=== PATIENT | male | born 1995 | race Caucasian/White ===

== ENCOUNTER 2020-05-30 13:57 | Outpatient (REF) | payer MEDICAID, SELFPAY ==
--- NOTE | ~2020-05-30 | XR_ITS ---
EXAMINATION: LEFT SHOULDER AND CHEST CLINICAL INFORMATION: Left shoulder pain COMPARISON: Chest 09/06/2018 TECHNIQUE: 4 views left shoulder. Chest 2 views. FINDINGS: LEFT SHOULDER: There is normal glenohumeral and AC joint alignment. The joint space is maintained normal. No acute fracture, dislocation or subluxation seen. The soft tissues are normal. CHEST: The lungs are hyperinflated but clear of acute process. The heart size and pulmonary vascularity is normal. No gross bony abnormality seen: XR/XR shoulder LT min 2V IMPRESSION: Unremarkable left shoulder exam. Unremarkable chest exam
--- NOTE | ~2020-05-30 | XR_ITS ---
EXAMINATION: LEFT SHOULDER AND CHEST CLINICAL INFORMATION: Left shoulder pain COMPARISON: Chest 09/06/2018 TECHNIQUE: 4 views left shoulder. Chest 2 views. FINDINGS: LEFT SHOULDER: There is normal glenohumeral and AC joint alignment. The joint space is maintained normal. No acute fracture, dislocation or subluxation seen. The soft tissues are normal. CHEST: The lungs are hyperinflated but clear of acute process. The heart size and pulmonary vascularity is normal. No gross bony abnormality seen: XR/XR chest 2V IMPRESSION: Unremarkable left shoulder exam. Unremarkable chest exam
== END 2020-05-30 13:58 | disposition home or self-care (01) ==
LOC: HO.XRAY 13:57
PROVIDERS: PCP Internal Medicine; Visit Provider Emergency Medicine
DX: I42.9 Cardiomyopathy, unspecified (principal); M25.512 Pain in left shoulder
CPT/HCPCS: 71046; 73030

== ENCOUNTER 2020-06-21 20:56 | Outpatient (REF) | payer MEDICAID, SELFPAY | END 2020-06-21 20:57 | disposition home or self-care (01) | LOC: HO.HOSX 20:56 | PROVIDERS: Visit Provider Physician Assistant | DX: M54.12 Radiculopathy, cervical region (principal); M25.512 Pain in left shoulder; G89.29 Other chronic pain | CPT/HCPCS: 99202 ==

== ENCOUNTER 2020-07-09 14:01 | Outpatient (REF) | payer MEDICAID, SELFPAY ==
--- NOTE | ~2020-07-09 | MR_ITS ---
EXAMINATION: MR CERVICAL SPINE WITHOUT CONTRAST CLINICAL INFORMATION: Left shoulder pain. Neck pain. COMPARISON: No relevant prior imaging. TECHNIQUE: MRI of the cervical spine was obtained using routine sequences without contrast. FINDINGS: There is nonspecific reversal of the cervical lordosis. Alignment is otherwise normal. Vertebral heights are preserved. There is loss of intervertebral disc height and T2 signal intensity at multiple levels related to disc degeneration. The cervicomedullary junction is normal. Limited visualization the posterior fossa reveals no abnormal finding. Occipital condyles and lateral C1 masses are intact. There is degenerative arthrosis of the atlantodental joint. C1-C2 facets are unremarkable. At C2-C3 the annular contour is normal. No canal or neuroforaminal compromise. At C3-C4 there is a slightly bulging disc. No canal or neuroforaminal compromise. At C4-C5 there is a slightly bulging disc. No canal or neuroforaminal compromise. At C5-C6 there is a shallow right central protrusion superimposed upon a bulging disc and there is buckling of the ligamenta flava. Moderate canal stenosis. Uncovertebral joint spurring causes mild right neuroforaminal encroachment. At C6-C7 there is a slightly bulging disc and buckling of ligamenta flava causing mild canal stenosis. No neuroforaminal encroachment. At C7-T1 the annular contour is normal. No canal or neuroforaminal compromise. Visualized soft tissues of the neck are normal. MR/MR cervical spine wo con IMPRESSION: There is multilevel degenerative spondylosis of the cervical spine. A shallow right central protrusion superimposed upon a bulging disc at C5-C6 causes moderate canal stenosis and there is mild canal stenosis at C6-C7. No overt cord compression and no abnormal intramedullary signal changes. Asymmetric uncovertebral joint spurring and facet degenerative change at C5-C6 causes mild right neuroforaminal encroachment.
== END 2020-07-09 14:02 | disposition home or self-care (01) ==
LOC: HO.MRI 14:01
PROVIDERS: Visit Provider Internal Medicine
DX: M25.512 Pain in left shoulder (principal); M54.2 Cervicalgia
CPT/HCPCS: 72141

== ENCOUNTER 2020-08-07 13:35 | Outpatient (REF) | payer MEDICAID, SELFPAY ==
--- NOTE | ~2020-08-07 | XR_ITS ---
EXAMINATION: XR LUMBOSACRAL SPINE WITH OBLIQUES CLINICAL INFORMATION: Back pain with right-sided sciatica. COMPARISON: None TECHNIQUE: AP, both oblique, and lateral views of the lumbar spine. Lateral view of the lumbosacral junction. FINDINGS: The vertebral bodies and posterior elements are normal. The disc spaces are preserved and the vertebral alignment is normal. The paraspinal soft tissues are normal. XR/XR lumbar spine 4V min IMPRESSION: Unremarkable examination.
== END 2020-08-07 13:36 | disposition home or self-care (01) ==
LOC: HO.XRAY 13:35
PROVIDERS: Absent Provider Internal Medicine; PCP Internal Medicine; Visit Provider Emergency Medicine
DX: M54.41 Lumbago with sciatica, right side (principal)
CPT/HCPCS: 72110

== ENCOUNTER 2020-09-04 09:56 | Outpatient (REF) | payer MEDICAID, SELFPAY ==
--- NOTE | ~2020-09-04 | XR_ITS ---
EXAMINATION: XR CHEST CLINICAL INFORMATION: Dysphagia COMPARISON: 05/30/2020 TECHNIQUE: 2 views of the chest were obtained. FINDINGS: No focal consolidation, pulmonary edema, or pleural effusion. Stable cardiomediastinal silhouette. XR/XR chest 2V IMPRESSION: No acute cardiopulmonary findings.
== END 2020-09-04 09:57 | disposition home or self-care (01) ==
LOC: HO.XRAY 09:56
PROVIDERS: PCP Internal Medicine; Referring Provider Internal Medicine; Visit Provider Registered Nurse
DX: R13.10 Dysphagia, unspecified (principal)
CPT/HCPCS: 71046

== ENCOUNTER 2020-12-15 12:32 | Emergency (ER) | payer MEDICAID, SELFPAY ==
[2020-12-15 13:04] VITALS: BP 118/81; PULSE 76; RESP 18; TEMP 36.3; O2SAT 99; BMI 13.8
[2020-12-15 13:44] LABS: MANUAL DIFF FLAG NO
[2020-12-15 13:46] LABS: Basophils Percent Auto 0.8 % (0-2); Eosinophils Absolute Auto 0.1 X10*3/uL (0.0-0.4); Hematocrit 47.6 % (42-52); Hemoglobin 16.1 g/dl (14.0-18.0); Imm Gran Abs Auto 0.01 X10*3/uL (0.00-0.03); Imm Gran Pct Auto 0.3 % (0.0-0.4); Lymphocytes Absolute Auto 1.3 X10*3/uL (1.2-4.9); Lymphocytes Percent Auto 33.4 % (20-40); Mean Corpuscular HGB Conc 33.8 g/dl (31.0-36.0); Mean Corpuscular Hemoglobin 30.9 pg (27.0-33.0); Mean Corpuscular Volume 91.4 fL (80-98); Mean Platelet Volume 12.3 fL (9.4-12.4); Monocytes Absolute Auto 0.3 X10*3/uL (0.1-1.2); Monocytes Percent Auto 7.5 % (2-11); Neutrophils Absolute Auto 2.2 X10*3/uL (2.0-8.3); Platelet Count 157 X10*3/uL (160-400); Red Blood Count 5.21 X10*6/uL (4.60-5.80)
[2020-12-15 14:04] LABS: Anion Gap 12 (12-20); Blood Urea Nitrogen 10 mg/dL (9-16); Carbon Dioxide 29 mmol/L (22-29); Chloride 102 mmol/L (96-108); Creatinine Clr Calc Pharmacy 84.9; Estimated Glomerular Filt Rate > 60; Glucose Random 88 mg/dL (60-115); Sodium 139 mmol/L (135-145)
--- NOTE | 2020-12-15 17:44 | ED_ITS ---
HPI - General Adult General Chief complaint: General Medical Stated complaint: Diff swallowing Time Seen by Provider: 12/15/20 17:23 Source: patient Mode of arrival: ambulatory Limitations: no limitations History of Present Illness HPI narrative: 25-year-old male who presents emergency department for evaluation of difficulty swallowing, abdominal pain and weight loss. The patient states that he was diagnosed with H pylori in October of 2020. He states that he was treated with omeprazole, Bismol and tetracycline with improvement of his symptoms. He states however since December 09 he believes his symptoms are returned. He states he is having intermittent , moderate to severe epigastric pain. He states the pain does radiate into the center of his chest. He states that he feels like there is something stuck in the back of his throat that he is unable to swallow. He states that when he eats food and drinks liquids it feels like it gets stuck in the back of his throat. He states that he does not vomit but sometimes he feels like the food or fluid comes back up the he needs to swallow it again. He states he has had a 20 lb weight loss since September 2020. He denied fever, chills, chest pain, shortness of breath, night sweats, changes bowel movements. The patient states he did see his PCP and has an H pylori test that is pending and he does not know the result of this test yet. Related Data Previous Rx's Medication Instructions Recorded aluminum hydrox-magnesium carb 254 10 ml PO TID #355 ml 12/15/20 mg-237.5 mg/5 mL oral suspension (Gaviscon Extra Strength) omeprazole 20 mg capsule,delayed 20 mg PO BID 30 Days #60 cap 12/15/20 release Allergies Allergy/AdvReac Type Severity Reaction Status Date / Time chlorhexidine [CHLORHEXIDINE] Allergy Intermediate HIVES Verified 12/15/20 13:11 Review of Systems Review of Systems: Yes all other systems are reviewed and are negative [facility] Past Medical History [facility] Narrative: Social history: The patient denies tobacco, alcohol and drug use. Medical History H. pylori infection Heart problem Spinal pain Physical Exam Vital Signs: Vital Signs: Last Vital Signs Temp 97.4 F 12/15/20 13:04 Pulse 76 12/15/20 13:04 Resp 18 12/15/20 13:04 BP 118/81 12/15/20 13:04 Pulse Ox 99 12/15/20 13:04 Body Mass Index 13.8 Const: Other: Very thin male patient, very pleasant and cooperative, does not appear to be in distress HENMT: Head: Yes normal to inspection, Yes normocephalic and Yes atraumatic Ears: external ears normal General nose exam: Normal external nose present Face and sinus: Yes normal facial exam Mouth: Normal oral and palatal mucosa present Throat: Yes posterior oropharynx normal Eyes: General: appearance normal, both eyes and all related structures Pupils: Equal, round and reactive pupils present Neck: Neck: Yes normal visual inspection, Yes no lymphadenopathy, Yes trachea midline and Yes supple Chest: Chest palpation & inspection: normal inspection of the chest and normal palpation of entire chest wall Resp: Effort & Inspection: normal respiratory effort and able to speak in complete sentences Auscultation: clear to auscultation bilaterally Cardio: Rate: regular rate Rhythm: regular rhythm Heart sounds: S1 normal heart sound present, S2 normal heart sound present and no murmurs GI: Inspection: Yes normal to inspection Palpation (GI): Soft to palpation, Tenderness to palpation present (GI) in the epigastrum (Moderate) and no guarding Auscultation: normal bowel sounds : General: Yes no CVA tenderness Back/Spine/Pelvis: Back: no CVA tenderness Skin: General skin exam: no rashes or lesions noted Neuro: Cranial nerves: Yes CN's II-XII intact bilaterally and Yes Equal, round and reactive pupils present Cognition (Neuro): normal cognition Motor exam (neuro): 5/5 motor strength present throughout Extrem: General: Yes normal to inspection Psych: Appearance: grossly normal Speech and movement: Normal speech and movement present Affect: normal affect Attitude: cooperative Thought process: Normal thought process present Thought content: Normal thought content present Course Course Course Narrative: 25-year-old male who presents emergency department for evaluation of epigastric pain, sensation like something stuck in the back of his throat and weight loss. The patient was treated in October of 2020 for H pylori with improvement of the symptoms that he states the symptoms have now returned since December 09, 2020. The patient also has a globus sensation in the back of his throat. Physical examination did reveal midepigastric tenderness otherwise was unremarkable. The patient's laboratory evaluation was unremarkable except for slightly low platelet count of a [id number]. Patient's presentation is consistent with acute gastritis with esophagitis which is giving him a globus sensation. At this time, I do not think that he should be treated with antibiotics unless his H pylori test is positive. The patient will be started on Prilosec 20 mg twice a day for 1 month and Gaviscon 3 times a day for 2 weeks. I did tell the patient needs follow-up with his PCP to get his H pylori test if this is positive then he will need antibiotics. Patient was discharged home with printed and verbal instructions. Medical Decision Making Lab Data Result diagrams: 12/15/20 13:40 12/15/20 13:40 Labs: Lab Results 12/15/20 12/15/20 Range/Units 13:40 13:40 WBC 4.0 L (4.8-10.8) X10*3/uL RBC 5.21 (4.60-5.80) X10*6/uL Hgb 16.1 (14.0-18.0) g/dl Hct 47.6 (42-52) % MCV 91.4 (80-98) fL MCH 30.9 (27.0-33.0) pg MCHC 33.8 (31.0-36.0) g/dl RDW 13.0 (11.0-16.0) % Plt Count 157 L (160-400) X10*3/uL MPV 12.3 (9.4-12.4) fL Immature Gran % (Auto) 0.3 (0.0-0.4) % Neut % (Auto) 56.0 (45-73) % Lymph % (Auto) 33.4 (20-40) % [place] % (Auto) 7.5 (2-11) % Eos % (Auto) 2.0 (0-4) % Baso % (Auto) 0.8 (0-2) % Lymph # (Auto) 1.3 (1.2-4.9) X10*3/uL [place] # (Auto) 0.3 (0.1-1.2) X10*3/uL Eos # (Auto) 0.1 (0.0-0.4) X10*3/uL Baso # (Auto) 0.0 (0.0-0.2) X10*3/uL Abs Immat Gran (auto) 0.01 (0.00-0.03) X10*3/uL Absolute Neuts (auto) 2.2 (2.0-8.3) X10*3/uL Absolute Nucleated RBC 0.000 (0.0-0.012) X10*3/uL Nucleated RBC % (auto) 0.0 (0.0-0.2) /100WBC Sodium 139 (135-145) mmol/L Potassium 4.0 (3.3-5.1) mmol/L Chloride 102 (96-108) mmol/L Carbon Dioxide 29 (22-29) mmol/L Anion Gap 12 (12-20) BUN 10 (9-16) mg/dL Creatinine 0.87 (0.5-1.4) mg/dL Estim Creat Clear Calc 84.9 Estimated GFR > 60 Random Glucose 88 (60-115) mg/dL Calcium 10.0 (8.4-10.2) mg/dL Discharge Plan Discharge Clinical Impression: Gastritis, Esophagitis, Globus sensation Patient Disposition: Home, Self-Care Instructions: Gastritis (ED), Esophagitis (ED) Additional Instructions: You symptoms are caused by too much acid in your stomach (gastritis) and acid that is going on to your esophagus (esophagitis). The inflammation of your esophagus is making it difficult for you to swallowing causing you to choke The inflammation in your esophagus gives you that sensation that something is stuck back there that you can swallow. Take omeprazole (Prilosec) 20 mg pills, 1 pill twice a day for 1 month Take Gaviscon extra-strength antacid, 10 mL 3 times a day for 2 weeks. It is important that you get your H pylori result from your primary care doctor. If this is positive then you need also to be on antibiotics for 2 weeks. Follow-up with your doctor in 2 days. Please return to the emergency department if your symptoms get worse or if you develop any symptoms that are concerning to you. Prescriptions: New Gaviscon Extra Strength 254-237.5 mg/5 mL suspension 10 ml PO TID Qty: 355 RF: 0 omeprazole 20 mg capsule,delayed release(DR/EC) 20 mg PO BID 30 Days Qty: 60 RF: 0
[2020-12-15 18:00] VITALS: BP 116/78; PULSE 72; RESP 18; TEMP 36.7; O2SAT 99
--- NOTE | 2020-12-15 18:31 | PC.NURSE ---
interpretor called to discharge patient
== END 2020-12-15 18:48 | disposition home or self-care (01) ==
LOC: HO.ED 18:17
PROVIDERS: Emergency Provider Emergency Medicine Emergency Medical Services; PCP Internal Medicine
DX: K20.90 Esophagitis, unspecified without bleeding (principal); K29.70 Gastritis, unspecified, without bleeding; F45.8 Other somatoform disorders; Z86.19 Personal history of other infectious and parasitic diseases
CPT/HCPCS: 36415; 80048; 85025; 99283; 99284

== ENCOUNTER 2021-01-03 14:08 | Outpatient (REF) | payer MEDICAID, SELFPAY ==
--- NOTE | ~2021-01-03 | XR_ITS ---
EXAMINATION: XR CERVICAL SPINE CLINICAL INFORMATION: Spondylosis/radiculopathy. COMPARISON: 07/09/2020 TECHNIQUE: 6 views of the cervical spine, inclusive of flexion and extension views, were obtained. FINDINGS: Vertebral body height and alignment is maintained on the neutral view. Disc spaces are maintained. On the flexion view, there is flexion seen involving the upper cervical vertebral bodies, with limited mobility at the lower cervical spine. Normal alignment on the extension view. No evidence of instability. No bony neuroforaminal narrowing. The atlantoaxial joint is well aligned. The dens appears intact. The prevertebral soft tissues are unremarkable. The lung apices are clear. XR/XR cervical spine min 6V IMPRESSION: Suggestion of limited mobility of the lower cervical spine.
== END 2021-01-03 14:09 | disposition home or self-care (01) ==
LOC: HO.XRAY 14:08
PROVIDERS: PCP Internal Medicine; Visit Provider Physician Assistant Surgical
DX: M47.812 Spondylosis without myelopathy or radiculopathy, cervical region (principal)
CPT/HCPCS: 72052

== ENCOUNTER 2021-01-24 10:54 | Emergency (ER) | payer MEDICAID, SELFPAY ==
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
[2021-01-24 11:01] VITALS: PULSE 100
[2021-01-24 11:07] VITALS: BP 141/94; PULSE 118; RESP 18; TEMP 36.7; O2SAT 100; BMI 13.6
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
[2021-01-24 12:28] LABS: Influenza A PCR NEGATIVE (Negative); Influenza B PCR NEGATIVE (Negative); Resp Syncy Virus RNA Qual PCR NEGATIVE (Negative); SARS COV2 PCR INHOUSE NEGATIVE (Negative)
[2021-01-24 13:16] LABS: Strep A Nucleic Acid Negative (Negative)
[2021-01-24 13:17] LABS: IDNOW Serial# 08D9AD1C
[2021-01-24 13:26] VITALS: PULSE 90; RESP 18; O2SAT 99
== END 2021-01-24 13:32 | disposition home or self-care (01) ==
PROVIDERS: Physician Assistant; Emergency Provider Emergency Medicine; PCP Internal Medicine
DX: S96.911A Strain of unspecified muscle and tendon at ankle and foot level, right foot, initial encounter (principal); J02.9 Acute pharyngitis, unspecified; J06.9 Acute upper respiratory infection, unspecified; Z20.822 Contact with and (suspected) exposure to COVID-19; V03.00XA Pedestrian on foot injured in collision with car, pick-up truck or van in nontraffic accident, initial encounter; Y93.89 Activity, other specified; Y92.414 Local residential or business street as the place of occurrence of the external cause; Y99.9 Unspecified external cause status
CPT/HCPCS: 0241U; 36415; 73610; 73630; 87651; 99283

== ENCOUNTER 2021-02-03 12:16 | Outpatient (REF) | payer MEDICAID, SELFPAY ==
--- NOTE | ~2021-02-03 | US_ITS ---
EXAMINATION: US ABDOMEN COMPLETE CLINICAL INFORMATION: Upper abdominal pain, rule out gallstones. COMPARISON: None TECHNIQUE: Real-time imaging of the abdominal viscera. FINDINGS: PANCREAS: Normal. ABDOMINAL AORTA: The proximal, mid, and distal segments are normal in caliber. INFERIOR VENA CAVA: Visualized portions are normal. LIVER: Normal. The liver is normal in size. The liver contour is normal. Parenchymal echogenicity is normal. No focal hepatic lesion. There is no intrahepatic biliary duct dilatation seen. GALLBLADDER: The gallbladder is physiologically distended without evidence of stones, sludge, wall thickening or pericholecystic fluid. There are 2 small 1 to 2 mm echogenic densities adjacent to the gallbladder wall questionable for small gallbladder wall polyps. COMMON BILE DUCT: Normal in caliber measuring 0.29 cm in diameter. RIGHT KIDNEY: Normal. No hydronephrosis. No renal calculi or focal parenchymal lesions. The kidney measures 10.1 cm in maximum dimension. LEFT KIDNEY: Normal. No hydronephrosis. No renal calculi or focal parenchymal lesions. The kidney measures 9.7 cm in maximum dimension. SPLEEN: Normal. The spleen measures 9.6 cm in maximum dimension. FREE FLUID: None. US/US abdomen complete IMPRESSION: No definite gallstone seen. Question 2 small gallbladder wall polyps.
== END 2021-02-03 12:17 | disposition home or self-care (01) ==
LOC: HO.US 12:16
PROVIDERS: PCP Internal Medicine; Visit Provider Emergency Medicine
DX: R10.10 Upper abdominal pain, unspecified (principal)
CPT/HCPCS: 76700

== ENCOUNTER 2021-03-11 10:24 | Outpatient (REF) | payer MEDICAID, SELFPAY ==
[2021-03-12 08:31] LABS: H Pylori Breath Test Negative (Negative)
== END 2021-03-11 10:25 | disposition home or self-care (01) ==
LOC: HO.LNP 10:24
PROVIDERS: PCP Internal Medicine; Referring Provider Internal Medicine; Visit Provider Nurse Practitioner Family
DX: K21.9 Gastro-esophageal reflux disease without esophagitis (principal); R13.19 Other dysphagia; R14.0 Abdominal distension (gaseous)
CPT/HCPCS: 83013; 99202

== ENCOUNTER 2021-04-30 11:00 | Outpatient (RCR) | payer MEDICAID, SELFPAY ==
[2021-02-05 10:00] VITALS: BP 106/71
== END 2021-05-05 12:31 | disposition home or self-care (01) ==
LOC: HO.PT 11:00
PROVIDERS: PCP Internal Medicine; Visit Provider Physician Assistant Surgical
DX: M47.812 Spondylosis without myelopathy or radiculopathy, cervical region (principal)
CPT/HCPCS: 97110; 97140; 97161; 97530

== ENCOUNTER → 2021-10-16 10:45 | Outpatient (BNVA) | payer MEDICAID, SELFPAY | PROVIDERS: PCP Internal Medicine; Visit Provider Dietitian, Registered | DX: R63.6 Underweight (principal); Z71.3 Dietary counseling and surveillance | CPT/HCPCS: 97802 ==

== ENCOUNTER 2021-11-06 10:50 | Day surgery (SDC) | payer MEDICAID, SELFPAY ==
--- NOTE | 2021-11-05 12:33 | P.CONAN_ITS ---
Documented by User: Nanci Weiss NP 11/05/21 12:35 HPI - Anesthesia Eval Consult details Narrative: 26yo M for Upper Endoscopy Cardiac cleared (Marfans with cardiomyopathy) [facility] Active Problems Active Problems: All Active Problems (Updated 10/22/21 @ 11:[address], LDN) Severely underweight adult (Acute) Shoulder pain (Acute) Cervical radiculopathy (Acute) Past Medical History Medical History Cardiomyopathy CHF (congestive heart failure) Difficulty swallowing H. pylori infection History of anxiety Marfan syndrome Mitral valve disease Palpitations Spinal pain Social History Social History (System 12/27/20 @ 17:25 by Jordyn Conklin) Alcohol intake: never Patient Tobacco Use Status: Never used Tobacco Advance Directives: No Advance Directives Information Provided: Yes Current occupational status: disabled Current occupation: right handed Meds Allergies Allergy/AdvReac Type Severity Reaction Status Date / Time chlorhexidine [CHLORHEXIDINE] Allergy Intermediate HIVES Verified 11/06/21 11:44 Home Medications Medication Instructions Recorded Confirmed Last Taken Type sacubitril 24 mg-valsartan 26 mg 1 tab PO BID 06/21/20 10/31/21 Unknown History tablet (Entresto) cholecalciferol (vitamin D3) 50 50 mcg PO DAILY 03/11/21 10/31/21 Unknown History mcg (2,000 unit) capsule fluticasone propionate 50 1 - 2 spray intranasal DAILY PRN 07/25/21 10/31/21 Unknown History mcg/actuation nasal Nasal Congestion spray,suspension Exam Exam Date and Time: November 05, 2021 1233 Narrative Narrative: ECHO 07/2021 1. Mild global hypokinesis of LV contractility 2. Overall LV systolic mildly impaired with EF 45-50% 3. No change compared to 07/2020 EKG SR per 03/2021 cardiology visit Assessment and Plan Assessment Anesthesia Assessment: Chart Reviewed Documented by User: Edgardo Aaron MD 11/06/21 11:44 [facility] Past Medical History Medical History Cardiomyopathy CHF (congestive heart failure) Difficulty swallowing H. pylori infection History of anxiety Marfan syndrome Mitral valve disease Palpitations Spinal pain Family History Family history of problems with anesthesia: No Surgical History History of Problems with Anesthesia: No Social History Social History (System 12/27/20 @ 17:25 by Jordyn Conklin) Alcohol intake: never Patient Tobacco Use Status: Never used Tobacco Advance Directives: No Advance Directives Information Provided: Yes Current occupational status: disabled Current occupation: right handed Meds Allergies Allergy/AdvReac Type Severity Reaction Status Date / Time chlorhexidine [CHLORHEXIDINE] Allergy Intermediate HIVES Verified 11/06/21 11:44 Home Medications Medication Instructions Recorded Confirmed Last Taken Type sacubitril 24 mg-valsartan 26 mg 1 tab PO BID 06/21/20 10/31/21 Unknown History tablet (Entresto) cholecalciferol (vitamin D3) 50 50 mcg PO DAILY 03/11/21 10/31/21 Unknown History mcg (2,000 unit) capsule fluticasone propionate 50 1 - 2 spray intranasal DAILY PRN 07/25/21 10/31/21 Unknown History mcg/actuation nasal Nasal Congestion spray,suspension Exam Airway Mallampati Class: I TM Dist: >3cm Neck ROM: Full Loose/Missing/Broken Teeth: No Heart: rrr Lungs: clear Assessment and Plan Final Anesthetic Review Family History of Problems with Anesthesia: No History of Problems with Anesthesia: No NPO: Yes ASA Class: III Final Preanesthetic Review: No Changes in Pt Med Stat, Meds/Allgs Chart Reviewed, Consent Obtained/Reviewed and Anes Risks/Benef Reviewed Patient Risk: Intermediate Procedure Risk: Low Anesthetic Plan Anesthetic Plan: MAC: Disposition: Standard PACU
--- NOTE | 2021-11-06 11:32 | MHC.SHP ---
Pre-Procedural Eval Section A Date of Service: 11/06/21 Section B Chief Complaint: reflux Relevant Family History (Specify if Yes): No Relevant Social History: None Present Medications: see Short Stay Collaborative assessment Medical History: Significant History (Cardiomyopathy H. pylori infection Heart problem Heart problem Spinal pain) History of Previous Operations: No relevant previous surgery Allergies: Allergies Allergy/AdvReac Type Severity Reaction Status Date / Time chlorhexidine [CHLORHEXIDINE] Allergy Intermediate HIVES Verified 07/25/21 11:29 Review of Systems Sugical H&P ROS: Negative: Constitution, Cardiovascular, Respiratory, Neurological, Psychiatric, Hem-Onc, Allergic/Immunologic, Gastrointestinal, Genitourinary, Musculoskeletal, Integumentary, Endocrine and Eyes/Ears/Nose/Throat Exam Surgical H&P Exam: Normal: HEENT, Normal: Heart, Normal: Lungs, Normal: Extremities, Normal: Abdomen, Normal: Skin and Normal: Neurological Plan Diagnosis/Plan: Unchanged I have reviewed the history and physical and performed a pertinent physical examination on my patient. No changes have occurred unless specified.
[2021-11-06 11:38] VITALS: BMI 13.9
[2021-11-06] MEDS: Lactated Ringers 1,000 ML 50 ML IVCONT (11:43)
[2021-11-06 11:45] VITALS: BP 112/78; PULSE 81; RESP 18; TEMP 36.4; O2SAT 99
--- NOTE | 2021-11-06 11:47 | PC.NURSE ---
IV attempt and insertion by Eric Palencia RN
--- NOTE | 2021-11-06 12:12 | W.PM.OPN ---
Operative Note Operative Note Date of Service: 11/06/21 Narrative: Procedure Description: EGD Indication: reflux, dysphagia, regurgitation Anesthesia: MAC FLEXIBLE TRANSORAL UPPER GASTROINTESTINAL ENDOSCOPY UPPER ENDOSCOPY Consent: Indications for the procedure and potential complications of bleeding, perforation, reaction to medications and missed diagnosis were discussed with the patient and informed consent was obtained. Instrument: Olympus GIF H 190 J mid size upper endoscope Monitoring: Vital signs and clinical assessment, continuous EKG monitoring, Pulse oximetry, Carbon Dioxide monitoring and blood pressure monitoring were done throughout the procedure. Procedure: The patient was placed in the left lateral decubitis position and pre-procedure medications were administered and a bite block was placed. The endoscope was inserted into the mouth and advanced under direct vision to the third part of duodenum. A careful inspection was made as the upper endoscope was withdrawn including a retroflexed examination of the proximal stomach; Findings and interventions are described below. Findings: Larynx:normal Esophagus: GE junction at 41 cm, diaphragm hiatus at 41 cm, patulous LES with midl esophagitis and possible short segment barretts, bx taken from GEJ and then distal and proximal esophagus in separate jars. There were tertiary contractions. Stomach: Patchy gastric erythema. Biopsies were obtained. Grade 2 flap valve on retroflexed examination of the cardia. Biopsies also taken for h pylori culture and senstivity Duodenum: Normal bulb and descending duodenum, bx taken, the duodenal bulb appeared to be externally compressed. Intervention: Biopsies as noted above Impression/Findings: esophagitis patulous LES possible barretts possible SMA syndrome abnormal esophageal motility PLAN: high dose PPI mesenteric duplex to r/o SMA syndrome reflux precautions might need esophageal manometry
[2021-11-06 12:22] VITALS: BP 92/55; PULSE 77; RESP 16; TEMP 36.6; O2SAT 100
[2021-11-06 12:35] VITALS: BP 97/53; PULSE 72; RESP 16; O2SAT 100
[2021-11-06 12:50] VITALS: BP 104/61; PULSE 66; RESP 16; O2SAT 100
[2021-11-06 13:05] VITALS: BP 103/56; PULSE 67; RESP 16; O2SAT 100
[2021-11-06 13:20] VITALS: BP 109/58; PULSE 67; RESP 16; TEMP 36.8; O2SAT 100
== END 2021-11-06 14:14 ==
LOC: HO.SSS 10:51
PROVIDERS: PCP Internal Medicine; Visit Provider Internal Medicine Gastroenterology
PROC: 0DJ08ZZ Inspection of Upper Intestinal Tract, Via Natural or Artificial Opening Endoscopic (ICD-10-PCS; CPT 43235; principal; 2021-11-06 12:40)
DX: K21.9 Gastro-esophageal reflux disease without esophagitis (principal); R13.19 Other dysphagia; R14.0 Abdominal distension (gaseous); K20.80 Other esophagitis without bleeding; K22.4 Dyskinesia of esophagus; K44.9 Diaphragmatic hernia without obstruction or gangrene; I42.9 Cardiomyopathy, unspecified; Z79.899 Other long term (current) drug therapy; Z88.8 Allergy status to other drugs, medicaments and biological substances
CPT/HCPCS: 43239; 36415; 87081; 88305; 88342

== ENCOUNTER → 2021-11-18 09:44 | Outpatient (BNVA) | payer MEDICAID, SELFPAY | PROVIDERS: PCP Internal Medicine; Visit Provider Dietitian, Registered | DX: R63.6 Underweight (principal); Z68.1 Body mass index [BMI] 19.9 or less, adult; Z71.3 Dietary counseling and surveillance | CPT/HCPCS: 97803 ==

== ENCOUNTER → 2021-11-19 13:44 | Outpatient (BNVA) | payer MEDICAID, SELFPAY | PROVIDERS: PCP Internal Medicine; Referring Provider Internal Medicine; Visit Provider Nurse Practitioner Family | DX: K21.00 Gastro-esophageal reflux disease with esophagitis, without bleeding (principal); R10.13 Epigastric pain; K58.0 Irritable bowel syndrome with diarrhea; Z79.899 Other long term (current) drug therapy | CPT/HCPCS: 99212 ==

== ENCOUNTER 2021-12-12 12:40 | Outpatient (REF) | payer MEDICAID, SELFPAY | END 2021-12-12 12:41 | disposition home or self-care (01) | LOC: HO.LAB 12:40 | PROVIDERS: PCP Internal Medicine; Visit Provider Nurse Practitioner Family | DX: K58.9 Irritable bowel syndrome, unspecified (principal) | CPT/HCPCS: 36415; 86003 ==

== ENCOUNTER 2021-12-18 13:49 | Outpatient (REF) | payer MEDICAID, SELFPAY ==
[2021-12-26 16:46] LABS: Pancreatic Elastase-1 >500 mcg/g
== END 2021-12-18 13:50 | disposition home or self-care (01) ==
LOC: HO.LNP 13:49
PROVIDERS: Visit Provider Nurse Practitioner Family
DX: R10.9 Unspecified abdominal pain (principal)
CPT/HCPCS: 82656

== ENCOUNTER → 2021-12-24 13:41 | Outpatient (BNVA) | payer MEDICAID, SELFPAY | PROVIDERS: PCP Internal Medicine; Visit Provider Nurse Practitioner Family | DX: R10.13 Epigastric pain (principal); K21.00 Gastro-esophageal reflux disease with esophagitis, without bleeding | CPT/HCPCS: 99212 ==

== ENCOUNTER 2022-01-16 12:45 | Outpatient (REF) | payer MEDICAID, SELFPAY ==
--- NOTE | ~2022-01-16 | US_ITS ---
ULTRASOUND ARTERIAL DUPLEX OF THE SUPERIOR MESENTERIC ARTERY Clinical indication: Chronic vascular disorder of the intestine Technique: Multiple dupont-scale and color Doppler images of the abdominal aorta and mesenteric vessels obtained. Comparison: None. FINDINGS: Abdominal aorta is normal caliber and widely patent without significant atherosclerotic plaque. Normal color flow and arterial duplex waveforms seen throughout the abdominal aorta. Normal velocities is seen in the proximal and distal portions. Celiac artery is evaluated on inspiration in the supine and erect positioning. Patent color flow with normal arterial waveforms and velocities seen in the celiac artery. On supine positioning velocity measures 145 cm/s. On erect positioning velocity measures 116 cm/s. Superior mesenteric artery is patent with normal color flow Doppler and normal arterial waveforms and velocities. Proximal segment measures 140 cm/s, mid segment measures 145 cm/s. The distal segment measures 108 cm/s. There is an acute superior mesenteric artery to aortic ankle measuring 24 degrees, normal is greater than 25 degrees. This is causing some compression of the left renal vein and could also be causing compression of the duodenum. The left renal vein is patent on color flow and duplex Doppler. Inferior mesenteric artery, splenic artery and hepatic arteries are patent with normal waveforms and velocities US/US SMA IMPRESSION: Patent arterial flow within the mesenteric vessels without significant stenosis. Note is made of an acute angulation between the superior mesenteric artery and aorta measuring 24 degrees, normal is greater than 25 degrees. There is compression seen of the left renal vein. This could also be causing compression of the duodenum consistent with SMA syndrome
== END 2022-01-16 12:46 | disposition home or self-care (01) ==
LOC: HO.US 12:45
PROVIDERS: Visit Provider Internal Medicine Gastroenterology
DX: K55.1 Chronic vascular disorders of intestine (principal)
CPT/HCPCS: 93976

== ENCOUNTER 2022-01-22 09:39 | Emergency (ER) | payer MEDICAID, SELFPAY ==
[2022-01-22 09:59] VITALS: BP 111/81; PULSE 85; RESP 14; TEMP 36.9; O2SAT 98; BMI 19.0
[2022-01-22 10:05] VITALS: BP 115/74; PULSE 73; RESP 17; TEMP 36.5
[2022-01-22 10:39] VITALS: BP 103/75; PULSE 119
--- NOTE | 2022-01-22 10:39 | ECG_ITS ---
Test Reason : near syncope Blood Pressure : / mmHG Vent. Rate : 077 BPM Atrial Rate : 077 BPM P-R Int : 164 ms QRS Dur : 092 ms QT Int : 356 ms P-R-T Axes : 079 079 072 degrees QTc Int : 402 ms Normal sinus rhythm RSR' or QR pattern in V1 suggests right ventricular conduction delay Nonspecific T wave abnormality Abnormal ECG Nonspecific T wave abnormality is new Referred By: Imelda Mckenzie Electronically Signed By:HOMERO GARZA MD
--- NOTE | 2022-01-22 10:40 | ED_ITS ---
HPI - Syncope General Chief Complaint: Syncope Stated Complaint: from PT. outpatient response Time Seen by Provider: 01/22/22 10:38 Source: patient Mode of arrival: ambulatory Limitations: no limitations History of Present Illness HPI narrative: 27-year-old male with history of cardiomyopathy, EF 45% (unknow etiology per patient) with history of arthritis in his neck and shoulders was been going to physical therapy for this for 1 year presents to the ER for evaluation of a possible syncopal event while at physical therapy today. Patient was sitting up getting a therapeutic ultrasound of his trapezius muscles when he started to feel a buzzing in his ears and his vision became tunnel. He felt lightheaded an d ?blacked out. ? he thinks he lost consciousness because when he woke up he was lying down with people around him. No fall or injury. Patient reports similar episodes but not as bad in the past. He denies any history of syncope in the past. He denies any shortness of breath or chest pain. He did not eat breakfast this morning or have any fluids. He feels near baseline but still not 100%. MD complaint: almost passed out Onset (ago): minute(s) Prodromal symptoms: vision changes and lightheaded Witnessed: No Context: at rest Injuries sustained associated with event: none Current symptoms: back to baseline Treatments prior to arrival: none Related Data Home Medications Medication Instructions Recorded Confirmed sacubitril 24 mg-valsartan 26 mg 1 tab PO BID 06/21/20 10/31/21 tablet (Entresto) cholecalciferol (vitamin D3) 50 50 mcg PO DAILY 03/11/21 10/31/21 mcg (2,000 unit) capsule fluticasone propionate 50 1 - 2 spray intranasal DAILY PRN 07/25/21 10/31/21 mcg/actuation nasal Nasal Congestion spray,suspension Previous Rx's Medication Instructions Recorded food supplemt, lactose-reduced See Rx Instructions .Route 12/24/21 (Ensure High Protein oral liquid) .COMPLEX #5,688 mL pantoprazole 40 mg tablet,delayed 40 mg PO DAILY #90 tabs 12/24/21 release sucralfate 1 gram tablet 1 g PO BID #60 tabs 12/24/21 Allergies Allergy/AdvReac Type Severity Reaction Status Date / Time chlorhexidine [CHLORHEXIDINE] Allergy Intermediate HIVES Verified 12/24/21 13:49 Review of Systems Review of Systems: Constitutional: No Fever, No Chills ENT/Mouth: No sore throat, No Rhinorrhea Eyes: No Eye Pain, No Swelling, No Redness, +tunnel vision Cardiovascular: No Chest Pain, No SOB, No Orthopnea, No Edema Respiratory: No Cough, No Sputum, No Wheezing, No dyspnea Gastrointestinal: No Nausea, No Vomiting, No Diarrhea, No abdominal Pain Musculoskeletal: No joint pain, No Myalgias Skin: No Skin Lesions, No rash Neuro:+ Weakness, No Numbness, + Dizziness, No Headache Psych: No Anxiety/Panic, No Depression Heme/Lymph: No Bruising, No Lymphadenopathy PMFSH Past Medical History Medical History Cardiomyopathy CHF (congestive heart failure) Difficulty swallowing H. pylori infection History of anxiety Mitral valve disease Palpitations Spinal pain Social History Social History Alcohol intake: never Patient Tobacco Use Status: Never used Tobacco Advance Directives: No Advance Directives Information Provided: No Current occupational status: disabled Current occupation: right handed Physical Exam Vital Signs: Vital Signs: Last Vital Signs Temp 97.7 F 01/22/22 10:05 Pulse 88 01/22/22 11:07 Resp 17 01/22/22 10:05 BP 108/75 01/22/22 11:07 Pulse Ox 98 01/22/22 12:42 O2 Del Method 01/22/22 12:42 BMI result Body Mass Index 19.0 Appearance: Alert. Oriented X3. No acute distress. Pale. Eyes: Pupils equal, round and reactive to light. ENT: Pharynx normal. Neck: Normal inspection. Neck supple. CVS: Normal heart rate and rhythm. Pulses normal. Respiratory: No respiratory distress. Breath sounds normal. Abdomen: thin, flat, Soft and nontender. +BS x4 Skin: Skin warm and dry. Normal skin color. Normal skin turgor. No rashes. Extremities: No lower extremity edema. Neuro: Oriented X 3. No motor deficit. No sensory deficit. CN II-XII intact. Normal speech and cognition. Nonfocal. Course Course Course Narrative: 27-year-old male with history of cardiomyopathy, chronic arthritis presents to the ER for evaluation of a near syncopal/syncopal event today while at physical therapy. He had prodrome of lightheadedness and tunnel vision as well as ringing in the ears. Possibly vasovagal or due to orthostatic hypotension. Will get baseline lab workup, EKG, orthostatics vital signs. Will give p.o. fluids and IV fluids as well. Will reassess. Reevaluation(s) Reevaluation #1: Orthostatic vital signs are negative. Cbc was normal. Reevaluation #2: Labs are unremarkable. Patient is feeling much better. He is up ambulating to the bathroom. Comfortable with discharge home with plan to follow-up with his outpatient service center assistant and his PCP. Patient agrees with plan. Return precautions were discussed. Stable for DC. Medications Administered Discontinued Medications Generic Name Dose Route Start Last Admin Trade Name Freq PRN Reason Stop Dose Admin Sodium Chloride 1,000 mls @ 999 mls/hr 01/22/22 10:45 01/22/22 12:42 Ns IVCONT 01/22/22 11:45 Infused .Q1H1M ANA MARÍA Infusion MDM - Syncope Medical Records Attestation: I reviewed the patient's medical records. Lab Data Attestation: I reviewed the patient's lab results. Result diagrams: 01/22/22 11:26 01/22/22 12:37 Labs: Lab Results 01/22/22 01/22/22 Range/Units 11:26 12:37 WBC 4.9 (4.8-10.8) X10*3/uL RBC 5.09 (4.60-5.80) X10*6/uL Hgb 15.4 (14.0-18.0) g/dl Hct 46.4 (42.0-52.0) % MCV 91.2 (80.0-98.0) fL MCH 30.3 (27.0-33.0) pg MCHC 33.2 (31.0-36.0) g/dl RDW 12.8 (11.0-16.0) % Plt Count 165 (160-400) X10*3/uL MPV 12.7 H (9.4-12.4) fL Immature Gran % (Auto) 0.2 (0.0-0.4) % Neut % (Auto) 71.7 (45-73) % Lymph % (Auto) 19.4 L (20-40) % Hamilton % (Auto) 7.1 (2-11) % Eos % (Auto) 0.8 (0-4) % Baso % (Auto) 0.8 (0-2) % Lymph # (Auto) 1.0 L (1.2-4.9) X10*3/uL Hamilton # (Auto) 0.4 (0.1-1.2) X10*3/uL Eos # (Auto) 0.0 (0.0-0.4) X10*3/uL Baso # (Auto) 0.0 (0.0-0.2) X10*3/uL Abs Immat Gran (auto) 0.01 (0.00-0.03) X10*3/uL Absolute Neuts (auto) 3.5 (2.0-8.3) x10*3/uL Absolute Nucleated RBC 0.000 (0.0-0.012) X10*3/uL Nucleated RBC % (auto) 0.0 (0.0-0.2) /100WBC Sodium 138 (135-145) mmol/L Potassium 4.1 (3.3-5.1) mmol/L Chloride 105 (96-108) mmol/L Carbon Dioxide 28 (22-29) mmol/L Anion Gap 9 L (12-20) BUN 19 H (9-16) mg/dL Creatinine 0.92 (0.5-1.4) mg/dL Estim Creat Clear Calc 108.3 Estimated GFR > 60 Random Glucose 127 H (60-115) mg/dL Calcium 8.5 D (8.4-10.2) mg/dL Magnesium 1.9 (1.6-2.6) mg/dL Total Bilirubin 0.5 (0.0-1.0) mg/dL Direct Bilirubin 0.2 (0.0-0.5) mg/dL AST 15 (5-37) U/L ALT 17 (0-40) U/L Alkaline Phosphatase 42 (39-117) U/L Total Protein 6.5 (6.5-8.0) g/dL Albumin 3.9 (3.5-5.0) g/dL ECG Data Attestation: I personally reviewed and interpreted this ECG as follows: ECG interpretation date: 01/22/22 ECG interpretation time: 12:45 Prior ECG tracings: available for review Interpretation: Normal sinus rhythm, ventricular rate 77 beats per minute, normal CO interval, normal QTC, no ST segment elevations or depressions. Peak T-waves in V3 and V4. No significant change from prior Discharge Plan Discharge Clinical Impression: Vasovagal syncope Patient Disposition: Home, Self-Care Instructions: Syncope (ED) Additional Instructions: Your lab workup today was unremarkable. Your EKG was unremarkable. Recommend following up with your service center assistant and let them know the events of today. It is important that you eat and drink before you go to your physical therapy sessions. If you develop new or worsening symptoms call 911 or come back to the ER for further evaluation. Prescriptions: No Action fluticasone propionate 50 mcg/actuation spray,suspension 1 - 2 spray intranasal DAILY PRN (Reason: Nasal Congestion) Entresto 24-26 mg tablet 1 tab PO BID cholecalciferol (vitamin D3) 50 mcg (2,000 unit) capsule 50 mcg PO DAILY pantoprazole 40 mg tablet,delayed release (DR/EC) 40 mg PO DAILY Qty: 90 2RF Rx Instructions: take one tablet half an hour before breakfast sucralfate 1 gram tablet 1 g PO BID Qty: 60 4RF Ensure High Protein Liquid See Rx Instructions .ROUTE .COMPLEX Qty: 5688 3RF Rx Instructions: One bottle daily Referrals: Iain Hernandez MD [Primary Care Provider] - (Syncope)
[2022-01-22 11:07] VITALS: BP 104/64; BP 108/75; PULSE 85; PULSE 88
[2022-01-22] MEDS: 0.9 % Sodium Chloride 1,000 ML 999 ML IVCONT (11:28)
[2022-01-22 11:29] LABS: MANUAL DIFF FLAG NO
[2022-01-22 11:48] LABS: Basophils Percent Auto 0.8 % (0-2); Eosinophils Percent Auto 0.8 % (0-4); Hematocrit 46.4 % (42.0-52.0); Hemoglobin 15.4 g/dl (14.0-18.0); Imm Gran Abs Auto 0.01 X10*3/uL (0.00-0.03); Imm Gran Pct Auto 0.2 % (0.0-0.4); Lymphocytes Percent Auto 19.4 % (20-40); Mean Corpuscular HGB Conc 33.2 g/dl (31.0-36.0); Mean Corpuscular Hemoglobin 30.3 pg (27.0-33.0); Mean Corpuscular Volume 91.2 fL (80.0-98.0); Mean Platelet Volume 12.7 fL (9.4-12.4); Monocytes Absolute Auto 0.4 X10*3/uL (0.1-1.2); Monocytes Percent Auto 7.1 % (2-11); Neutrophils Absolute Auto 3.5 x10*3/uL (2.0-8.3); Neutrophils Percent Auto 71.7 % (45-73); Platelet Count 165 X10*3/uL (160-400); Red Blood Count 5.09 X10*6/uL (4.60-5.80); Red Cell Distribution Width 12.8 % (11.0-16.0); White Blood Count 4.9 X10*3/uL (4.8-10.8)
[2022-01-22 12:42] VITALS: O2SAT 98
--- NOTE | 2022-01-22 12:44 | PC.NURSE ---
Pt alert and oriented, respirations even and unlabored. Reports feeling slightly dizzy at this time, resolving from the near syncopal episode this morning. Ambulated to bed with steady gait. IV fluids infused, awaiting lab work results.
[2022-01-22 13:21] LABS: Alanine Aminotransferase 17 U/L (0-40); Albumin Level 3.9 g/dL (3.5-5.0); Alkaline Phosphatase 42 U/L (39-117); Anion Gap 9 (12-20); Aspartate Amino Transferase 15 U/L (5-37); Bilirubin Direct 0.2 mg/dL (0.0-0.5); Bilirubin Total 0.5 mg/dL (0.0-1.0); Blood Urea Nitrogen 19 mg/dL (9-16); Calcium 8.5 mg/dL (8.4-10.2); Carbon Dioxide 28 mmol/L (22-29); Chloride 105 mmol/L (96-108); Creatinine Clr Calc Pharmacy 108.3; Estimated Glomerular Filt Rate > 60; Glucose Random 127 mg/dL (60-115); Magnesium 1.9 mg/dL (1.6-2.6); Potassium 4.1 mmol/L (3.3-5.1); Sodium 138 mmol/L (135-145); Total Protein 6.5 g/dL (6.5-8.0)
== END 2022-01-22 14:01 | disposition home or self-care (01) ==
PROVIDERS: Physician Assistant; Emergency Provider Emergency Medicine Emergency Medical Services; PCP Internal Medicine
DX: R55 Syncope and collapse (principal); R42 Dizziness and giddiness; Z79.899 Other long term (current) drug therapy
CPT/HCPCS: 36415; 80048; 80076; 83735; 85025; 93005; 96360; 99284; 99285

== ENCOUNTER → 2022-01-28 10:47 | Outpatient (BNVA) | payer MEDICAID, SELFPAY | PROVIDERS: PCP Internal Medicine; Visit Provider Nurse Practitioner Family | DX: K21.9 Gastro-esophageal reflux disease without esophagitis (principal); R10.13 Epigastric pain; R14.0 Abdominal distension (gaseous) | CPT/HCPCS: 99212 ==

== ENCOUNTER 2022-02-16 08:48 | Outpatient (REF) | payer MEDICAID, SELFPAY ==
--- NOTE | ~2022-02-16 | CT_ITS ---
EXAMINATION: CT ANGIOGRAM ABDOMEN CLINICAL INFORMATION: Chronic vascular disorders of the intestine. COMPARISON: None TECHNIQUE: Multiple axial images were obtained through the abdomen following the administration of 85 mL Omnipaque 350 intravenous contrast. Images were reviewed on a dedicated 3-D workstation. Along with scans during the arterial phase, repeat CT scan was performed during the portal venous phase. The arterial phase images were obtained during inspiration, the portal veins phase images were obtained during expiration. This CT examination was performed using dose optimization techniques as appropriate, variously including the following: *Automated exposure control *Adjustment of mA and/or kV according to patient size (this includes techniques or standardized protocols for targeted exams where dose is matched to indication/reason for exam; i.e. extremities or head) *Use of iterative reconstruction technique DLP: 199 mGy-cm VASCULAR FINDINGS: The visualized distal descending thoracic aorta appears normal. The abdominal aorta and visualized iliac vessels appear normal. The celiac, SMA and LILIBETH are all widely patent without stenoses. The SMA angle of origin from the aorta is 17 degrees, similar on both inspiration and expiration. The aortomesenteric distance is 4 mm. There is compression of the left renal vein between the SMA and aorta with some element of obstruction and dilatation of the left renal vein. The duodenum can be seen passing between the aorta and SMA without dilatation of the proximal portion. There are single renal arteries present bilaterally which are widely patent. NONVASCULAR FINDINGS: LUNG BASES: The visualized lung bases are unremarkable. LIVER, GALLBLADDER, AND BILIARY TREE: The liver is normal in size, shape, and attenuation. No focal hepatic lesion or biliary ductal dilatation is present. The gallbladder is unremarkable with no evidence of radiopaque gallstones, gallbladder wall thickening, or obvious pericholecystic inflammatory changes. PANCREAS: Unremarkable. SPLEEN: Unremarkable. ADRENAL GLANDS: Unremarkable. KIDNEYS AND URETERS: The kidneys are normal in size, shape, and attenuation. No hydronephrosis, hydroureter, or calculi seen. No perinephric stranding. GASTROINTESTINAL TRACT: The visualized bowel is unremarkable. ABDOMINAL WALL: No significant hernia is appreciated. LYMPH NODES: No retroperitoneal lymphadenopathy. PELVIC VISCERA: Unremarkable. OSSEOUS STRUCTURES: Unremarkable. CT/CT angio abdomen IMPRESSION: 1. Evidence of SMA syndrome with decreased SMA angle as well as aortomesenteric distance, as described above. 2. Mesenteric vessels are otherwise normal, all quite large and widely patent. Fleischner guidelines were followed.
[2022-02-16] MEDS: iohexoL 350 MG/ML 100 ML INFUS..BTL IV (09:53)
== END 2022-02-16 08:49 | disposition home or self-care (01) ==
LOC: HO.CT 08:48
PROVIDERS: PCP Internal Medicine; Visit Provider Nurse Practitioner Family
DX: K55.1 Chronic vascular disorders of intestine (principal)
CPT/HCPCS: 74175; Q9967

== ENCOUNTER 2022-02-20 11:00 | Outpatient (RCR) | payer MEDICAID, SELFPAY ==
[2021-12-22 08:59] VITALS: BP 118/83; PULSE 83; O2SAT 98
== END 2022-02-23 09:42 | disposition home or self-care (01) ==
LOC: HO.PT 11:00
PROVIDERS: PCP Internal Medicine; Visit Provider Physician Assistant
DX: M50.33 Other cervical disc degeneration, cervicothoracic region (principal)
CPT/HCPCS: 97035; 97110; 97140; 97162

== ENCOUNTER → 2022-05-05 10:44 | Outpatient (BNVA) | payer MEDICAID, SELFPAY | PROVIDERS: PCP Internal Medicine; Visit Provider Surgery Vascular Surgery | DX: R63.6 Underweight (principal) | CPT/HCPCS: 97803; 99212 ==

== ENCOUNTER → 2022-06-30 09:53 | Outpatient (BNVA) | payer MEDICAID, SELFPAY | PROVIDERS: PCP Internal Medicine; Visit Provider Nurse Practitioner Family | DX: K21.9 Gastro-esophageal reflux disease without esophagitis (principal); R63.6 Underweight; R10.13 Epigastric pain | CPT/HCPCS: 99212 ==

== ENCOUNTER 2022-09-02 10:50 | Outpatient (AMB) | payer MEDICAID, SELFPAY ==
[2022-09-02 11:15] VITALS: BP 102/69; PULSE 89; BMI 15.4
--- NOTE | 2022-09-02 11:15 | MHC.OFFVIS ---
Intake Vital Signs 09/02/22 11:15 Height 6 ft Weight 113 lb 5.082 oz BMI 15.4 BP 102/69 Blood Pressure Location Lt brachial Position Sitting Pulse 89 Intake Visit Reasons: Follow up 2 months Intake Note: Henok presents in ooffice as a est.patient for epigastric abdominal pain PT CC:pt reports having no concerns pt denies any other GI Issues Senior Qa Engineer Required: No Accompanied by: Self / Same As Patient Allergies chlorhexidine [CHLORHEXIDINE] Allergy (Intermediate, Verified 09/02/22 11:16) HIVES HPI Follow up 2 months HPI Details LAST VISIT Severely underweight adult Patient is following up with nutrition services assistant. Next appointment in couple weeks. Goal is to gain weight. Patient reports to have good appetite trying to increase calorie caused her day. Electromagnet Crane Operator recommended 3700 calorie diet. Patient will bring the list of recommended food to next visit GERD (gastroesophageal reflux disease) Occasional epigastric discomfort without dyspepsia, dysphagia or odynophagia. Patient can start taking low-dose pantoprazole in the morning and sucralfate at bedtime. Patient was also encouraged to avoid dietary triggers in late night snacking. Staying upright for minimal 3 hours after meals discussed with patient. Epigastric abdominal pain Occasional epigastric discomfort at night time. Patient is not taking sucralfate will start him on sucralfate at bedtime again. Will also start him on low-dose pantoprazole. I will see patient in 3 months, sooner on as needed basis. Patient is agreeable to this plan and verbalizes understanding of instructions. He was given the opportunity to ask questions and all questions answered. ? Thank you for allowing me to participate in his care she Plan Medications New sucralfate 1 g PO BEDTIME 90 tabs 1RF K21.9, K29.81 pantoprazole 20 mg PO DAILY 90 tabs 2RF TODAY'S VISIT Patient is here today for follow-up. Patient reports that he has been feeling well since last time I have seen him. Patient states that he take sucralfate at bedtime and pantoprazole in the morning. His symptoms of acid reflux and epigastric discomfort are suppressed. Patient has more appetite and currently is seeing nutrition services assistant who is helping him with meal prep. Patient is on the high calorie count and was encouraged to eat often. Patient denies any nausea or vomiting. Denies any GI concerning symptoms today. Starting to gain weight. [facility] Medical History Cardiomyopathy CHF (congestive heart failure) Difficulty swallowing H. pylori infection History of anxiety Mitral valve disease Palpitations Spinal pain Social History Alcohol intake: never Patient Tobacco Use Status: Never used Tobacco Current occupational status: disabled Current occupation: right handed Review of Systems Const Denies weight gain and Denies weight loss ENT Reports no additional complaints, Denies dysphagia and Denies odynophagia Card Reports no additional complaints Resp Reports no additional complaints GI Denies abdominal pain, Denies belching, Denies melena, Denies bloating, Denies change in bowel habits, Denies dysphagia, Denies excessive flatus, Denies dyspepsia, Denies heartburn, Denies diarrhea, Denies loose stools, Denies nausea, Denies odynophagia and Denies vomiting Reports no additional complaints Musc Reports no additional complaints Neuro Reports no additional complaints Psych Reports no additional complaints Endo Reports no additional complaints Physical Exam Vital Signs: Last Vital Signs Pulse 89 09/02/22 11:15 BP 102/69 09/02/22 11:15 BMI result Body Mass Index 15.4 Const General: healthy appearing, no acute distress and well developed Nutritional Appearance: underweight Orientation/consciousness: patient oriented x3 HEENT Head: Yes normal to inspection, Yes normocephalic and Yes atraumatic Face and sinus: Yes normal facial exam Mouth: Normal oral and palatal mucosa present Throat: Yes posterior oropharynx normal, Yes tonsils normal and Yes uvula midline Eyes General: appearance normal, both eyes and all related structures Neck Neck: Yes normal visual inspection, Yes full ROM and Yes trachea midline Thyroid: Thyroid normal Resp Effort & Inspection: normal respiratory effort, able to speak in complete sentences, no tracheal deviation and symmetric chest movement Auscultation: clear to auscultation bilaterally Cardio Rate: regular rate Heart sounds: S1 normal heart sound present and S2 normal heart sound present GI Inspection: Yes normal to inspection and No distended Palpation (GI): Soft to palpation, not firm, nontender and No hepatosplenomegaly present Auscultation: normal bowel sounds General: Yes no CVA tenderness Back/Spine/Pelvis Back: no CVA tenderness Skin General skin exam: elasticity normal, turgor normal and dry skin Neuro General: patient oriented x3 Psych Appearance: grossly normal Mental Status: mental status grossly normal Speech and movement: Normal speech and movement present Affect: normal affect Thought process: Normal thought process present Assessment & Plan Assessment & Plan (1) Severely underweight adult: Code(s): R63.6 - Underweight Plan: Weight gain of 11 lb since last January. Continue high-protein diet. Patient was encouraged to eat often. Follow-up with nutrition services assistant (2) GERD (gastroesophageal reflux disease): Code(s): K21.9 - Gastro-esophageal reflux disease without esophagitis Qualifiers: Esophagitis presence: without esophagitis Qualified Code(s): K21.9 - Gastro-esophageal reflux disease without esophagitis Plan: Continue on pantoprazole and sucralfate. Continue avoiding dietary triggers in late night snacking. Staying upright for minimal 3 hours after meals discussed with patient. (3) Epigastric abdominal pain: Code(s): R10.13 - Epigastric pain Plan: As mentioned above continue current PPI does and sucralfate at bedtime. Continue avoiding dietary triggers. Eating often and smaller meals. I will see patient in 6 months, sooner on as needed basis. Patient is agreeable to this plan and verbalizes understanding of instructions. He was given the opportunity to ask questions and all questions answered. Thank you for allowing me to participate in his care Medications: Refilled sucralfate 1 g PO BEDTIME 90 tabs 1RF K21.9 - Gastro-esophageal reflux disease without esophagitis, K29.81 - Duodenitis with bleeding Discontinued simethicone Discontinued Reason: Doctor's Order 125 mg PO BID-QID PRN 120 caps 3RF abdominal distention Coding Level of Care Code Est Pt Level 3 (18309) Diagnoses Severely underweight adult R63.6 GERD (gastroesophageal reflux disease) K21.9 Esophagitis presence: without esophagitis Epigastric abdominal pain R10.13 Time Spent (min) 30 Comment 20 minutes spent with patient and additional 10 minutes spent reviewing his records
== END 2022-09-02 12:05 | disposition home or self-care (01) ==
PROVIDERS: PCP Internal Medicine; Visit Provider Nurse Practitioner Family
DX: R63.6 Underweight (principal); K21.9 Gastro-esophageal reflux disease without esophagitis; R10.13 Epigastric pain
CPT/HCPCS: 99213

== ENCOUNTER → 2022-09-02 10:50 | Outpatient (BNVA) | payer MEDICAID, SELFPAY | PROVIDERS: PCP Internal Medicine; Visit Provider Nurse Practitioner Family | DX: K21.9 Gastro-esophageal reflux disease without esophagitis (principal); R63.6 Underweight; R10.13 Epigastric pain | CPT/HCPCS: 99213 ==

== ENCOUNTER 2022-10-15 08:49 | Outpatient (AMB) | payer MEDICAID, SELFPAY ==
[2022-10-15 09:12] VITALS: BMI 15.2
--- NOTE | 2022-10-15 09:12 | A.OFFVIS_ITS ---
Intake VS Expanded 10/15/22 09:12 Height 6 ft Weight 112 lb 6.972 oz BMI 15.2 Comment weighed w short sleeve, long jeans, No sneakers Intake Visit Reasons: underweight Allergies chlorhexidine [CHLORHEXIDINE] Allergy (Intermediate, Verified 09/02/22 11:16) HIVES HPI Nutrition Presentation Details Pt presents for MNT f/u for severely underweight Pt reports having had root canal in September, now has permanent dentures Pt reports adding CIB to milk once a day Reports having tried higher calorie milk options ( coconut milk) to cereals and is getting used to some flavors. Reports not having meal routine. Most Recent Diabetes Results: No Data to Display [facility] Medical History Cardiomyopathy CHF (congestive heart failure) Difficulty swallowing H. pylori infection History of anxiety Mitral valve disease Palpitations Spinal pain Social History Alcohol intake: never Patient Tobacco Use Status: Never used Tobacco Current occupational status: disabled Current occupation: right handed Assessment & Plan Assessment & Plan (1) Severely underweight adult: Comment: BMI 10/15/22 at 15.2, BMI on 05/05/22 at 13.8 Code(s): R63.6 - Underweight Plan: Educate Pt on continuing to increase nutrient dense foods and calories by 1000- 2000 per day from typical meal intake Recommend starting nutritional supplements Ensure enlive 3 a day which will prov cary 1050 calories and 60 g protein/day- Pt reports these were not covered by insurance and may have one a day or a couple of times in the week- coupons were provided ? Current wt: 51 kg (10/2022) 48.6 kg (05/05/22) 47 kg(10/16/21) IBW: 178 lbs Est kcal as per MSJ : 1784 +1500/2500= 3284- 4284 (40% carb, 30% fat/prot) Est fluid needs: 2021 (25 ml/kg IBW of 178 lbs Rec fiber: increase to 8-10 g per day and gradually increase to 35 g or as tolerated Rec Na: < 2000 mg /d Educate patient on: (R= Reviewed, V = verbalizes understanding N/R= Needs review N/A= not applicable) Increasing calories by 1000 per day via: * having 3 meals day RV * including protein sources of foods in meals importance of vitamins and minerals from food for nerve conduction RV * including snacks in between meals R V * meal supplements in between meals RV Patient Instructions: Have 3 small meals per day and snacks in between aim at 1200 daisy for meals (2 whole milk servings, 4 starches, 5 med fat protein, 4 fats, non starchy veg), and 400-500 calories as snack at least 3 snacks per day (snack 2 fruit, 2 dairy /2prot, 2 starches, 2 fruits/3 fats 3 starches 2 med fat prot) Ex: HAve cereal with whole milk and add a fruit , nuts Have sandw with protein, avocado, olives, spinach, naked juice or milk with carnation instant breakfast Rice/beans / 5-6 oz of poultry ,salad /cooked vegetables with olive oil , snack on smoothies (milk,fruit, cib) or 2 slices of whole wheat bread turkey/ham , kim/avocado, naked juice see meal plan ideas and list of higher calorie/nutrient dense foods Coding Level of Care Code Nutr Indiv Subseq (29052) Diagnoses Severely underweight adult R63.6 Time Spent (min) 30
== END 2022-10-15 10:48 | disposition home or self-care (01) ==
PROVIDERS: PCP Internal Medicine; Referring Provider Internal Medicine; Visit Provider Dietitian, Registered
DX: R63.6 Underweight (principal)

== ENCOUNTER → 2022-10-15 08:49 | Outpatient (BNVA) | payer MEDICAID, SELFPAY | PROVIDERS: Visit Provider Dietitian, Registered | DX: R63.6 Underweight (principal); Z68.1 Body mass index [BMI] 19.9 or less, adult; Z71.3 Dietary counseling and surveillance | CPT/HCPCS: 97803 ==

== ENCOUNTER 2022-11-19 14:50 | Outpatient (AMB) | payer MEDICAID, SELFPAY ==
--- NOTE | 2022-11-19 14:53 | A.OFFVIS_ITS ---
Intake Vital Signs 11/19/22 14:54 Height 6 ft Weight 114 lb BMI 15.5 Intake Visit Reasons: 6 month follow up (no testing) Intake Note: 6 mo follow up superior mesenteric artery syndrome. Pt states less pain in abdomen. Pt states that when he does exercises for PT it gives his abdomen pain. Accompanied by: Self / Same As Patient Allergies chlorhexidine [CHLORHEXIDINE] Allergy (Intermediate, Verified 11/19/22 14:59) HIVES HPI 6 month follow up (no testing) HPI Details Very pleasant 27-year-old gentleman presents for follow-up regarding SMA syndrome. He is a fairly thin young gentleman with a height of nearly 6 ft. He reports that he has been doing significantly better since his last visit. He was at a low weight of nearly 99 lb currently up to 114. He reports that that epigastric discomfort and pain has significantly decreased. He has only noticed it during exercise. He is currently working with a senior datastage developer and taking Ensure shakes naked juices and powders. He now presents for routine follow-up. [facility] Medical History History of anxiety Difficulty swallowing CHF (congestive heart failure) Mitral valve disease Palpitations Cardiomyopathy Spinal pain H. pylori infection Social History Alcohol intake: never Patient Tobacco Use Status: Never used Tobacco Current occupational status: disabled Current occupation: right handed Review of Systems Const All systems reviewed & are unremarkable except as noted in HPI and below Reports no additional complaints ENT Reports Normal hearing present Card Denies chest pain, Denies chest pain at rest, Denies chest pain with activity and Denies pedal edema Resp Denies cough GI Denies abdominal pain Musc Denies abnormal gait, Denies muscle cramps and Denies radiating pain into limb Skin/Breast Denies skin ulcer and Denies wounds Neuro Reports Normal hearing present and Denies abnormal gait Psych Reports no additional complaints Physical Exam Vital Signs: BMI result Body Mass Index 15.5 Const General: cooperative, healthy appearing and comfortable Orientation/consciousness: oriented to person, oriented to place and oriented to time HEENT Head: Yes normal to inspection Neck Neck: Yes normal visual inspection Carotids: no bruits Chest Chest palpation & inspection: normal inspection of the chest Resp Effort & Inspection: normal respiratory effort and able to speak in complete sentences Auscultation: clear to auscultation bilaterally, no crackles, no rales, no rhonchi and no wheezes Cardio Rate: regular rate Rhythm: regular rhythm Heart sounds: S1 normal heart sound present and S2 normal heart sound present Bruits: no carotid bruits Peripheral pulses: Peripheral pulses 2+ throughout GI Inspection: Yes normal to inspection Skin Wounds: no wounds Hair: normal Neuro General: oriented to person, oriented to place and oriented to time Cranial nerves: Yes CN's II-XII intact bilaterally and Yes Normal hearing present Cognition (Neuro): normal cognition Motor exam (neuro): 5/5 motor strength present throughout Extrem Other: venous exam: No significant superficial varicosities or spider telangiectasias, minimal edema General: No clubbing, No cyanosis and No edema Psych Appearance: grossly normal Mental Status: mental status grossly normal Speech and movement: Normal speech and movement present Assessment & Plan Assessment & Plan (1) SMAS (superior mesenteric artery syndrome): Code(s): K55.1 - Chronic vascular disorders of intestine Plan: Unfortunately he has multiple medical issues. He may have an element of SMA syndrome. I do believe as he continues to gain weight it will improve over time. He continues to be compliant and work with Nutrition to try to improve his overall nutritional status. I would recommend continued conservative management of this and continued weight gain as tolerated. I have scheduled him for routine 6 month checkup to ensure that he is progressing in the right direction. Should there be any additional issues happy to see him back sooner. Thank you for allowing us to assist in his care. If there are any questions or concerns please do not hesitate to contact us. Coding Level of Care Code Est Pt Level 4 (15399) Diagnoses SMAS (superior mesenteric artery syndrome) K55.1
[2022-11-19 14:54] VITALS: BMI 15.5
== END 2022-11-19 15:13 | disposition home or self-care (01) ==
PROVIDERS: Visit Provider Surgery Vascular Surgery
DX: K55.1 Chronic vascular disorders of intestine (principal)
CPT/HCPCS: 99213

== ENCOUNTER → 2022-11-19 14:50 | Outpatient (BNVA) | payer MEDICAID, SELFPAY | PROVIDERS: Visit Provider Surgery Vascular Surgery | DX: K55.1 Chronic vascular disorders of intestine (principal) | CPT/HCPCS: 99212 ==

== ENCOUNTER 2023-03-03 12:41 | Outpatient (AMB) | payer MEDICAID, SELFPAY ==
--- NOTE | 2023-03-03 13:42 | MHC.AMNUTRGE ---
Intake VS Expanded 03/03/23 13:43 Height 6 ft Weight 110 lb 3.698 oz BMI 14.9 Intake Visit Reasons: monitor wt/CONFIRMED Allergies chlorhexidine [CHLORHEXIDINE] Allergy (Intermediate, Verified 11/19/22 14:59) KRISTIN PATTEN Nutrition Presentation Details Pt presents for MNT for severely underweight . Pt with hx of superior mesenteric artery syndrome He reports doing ok with liquids, choosing high calorie shakes 2 a week, not on a daily basis He finds himself skipping breakfast due to waking up late. 1-2pm Ensure 350 calorie and a protein bar -250 calories) (600 daisy) glass of apple juice (approx 120-200 calories) 7-8 pm 2 1/2 cup of cornflakes with 2 c whole milk (approx 600 daisy) or 2 cup of pasta with meat sauce and 10 oz of juice Pt reports sometimes not able to eat enough, reports often not consuming over 1500 calories, feels full too fast, becomes tired , sleeping until 1pm and having 2 meals/day. wt hx in 10/2021 at 103 lbs, 11/2021 at 103 lbs, 04/2022 at 107 lbs, 10/2022 at 113 lbs, today 03/03/23 at 110 lbs Pt follows up with vascular surgeon Pt reports having pending appt with GI Pt reports having pending dental work in a couple of weeks, which can further reduce his intake . Pt declines referral to mental health care for further evaluation Most Recent Diabetes Results: No Data to Display [facility] Medical History History of anxiety Difficulty swallowing CHF (congestive heart failure) Mitral valve disease Palpitations Cardiomyopathy Spinal pain H. pylori infection Social History Alcohol intake: never Patient Tobacco Use Status: Never used Tobacco Current occupational status: disabled Current occupation: right handed Assessment & Plan Assessment & Plan (1) Severely underweight adult: Comment: SEVERELY UNDERWEIGHT BMI, BMI at 14.9/ 110 lbs on 03/03/23 , 10/15/22 at 15.2/110 lbs, BMI on 05/05/22 at 13.8/107 lbs, Code(s): R63.6 - Underweight Plan: Educate Pt on continuing to increase nutrient dense foods and calories by 500-1000 per day from small meals throughout the day , choosing soft foods Pt may benefit from additional nutrition support to promote weight gain Recommend prescribing Ensure enlive nutritional supplements to have 3 a day related to SMAS, severely underweight which will provide 1050 calories and 60 g protein/day- Pt reports these were not covered by insurance in the past and may have one a day or a couple of times in the week- additional coupons were provided ? Current wt: 50.3kg (03/03/23), 51.2 kg(10/15/22) 47 kg(10/16/21), 48.6 kg (05/05/22) IBW: 178 lbs Est kcal as per MSJ : 1784 +1500/2500= 3284- 4284 (40% carb, 30% fat/prot) Est fluid needs: 9992-1533 (30 ml/kg IBW of 178 lbs Rec fiber: increase to 8-10 g per day Rec Na: < 2000 mg /d prot needs 1-1.2 kg IBW: 81-97 g/d Educate patient on: (R= Reviewed, V = verbalizes understanding N/R= Needs review N/A= not applicable) Increasing calories by 1000 per day via: having 3 meals day RV including protein sources of foods in meals importance of vitamins and minerals from food for nerve conduction RV including nutrient dense snacks in between meals R V meal supplements in between meals RV, aim at consuming 3 - 350 calories nutritional supplements Patient Instructions: Pt to bring 1 week food record to review at next follow up in 1 week Increase calories gradually ( 3 ensures enlive daily - have one in between meals) Make pancakes with eggs and milk (adding 75 calories ) Add 1 tsp of of coconut/avocado oil to each meal , 3 meals a day monitor weight weekly, monitor tolerance Coding Level of Care Code Nutr Indiv Subseq (73391) Diagnoses Severely underweight adult R63.6 Time Spent (min) 30
[2023-03-03 13:43] VITALS: BMI 14.9
== END 2023-03-03 14:16 | disposition home or self-care (01) ==
PROVIDERS: PCP Internal Medicine; Visit Provider Dietitian, Registered
DX: R63.6 Underweight (principal)

== ENCOUNTER → 2023-03-03 12:41 | Outpatient (BNVA) | payer MEDICAID, SELFPAY | PROVIDERS: PCP Internal Medicine; Visit Provider Dietitian, Registered | DX: R63.6 Underweight (principal); Z68.1 Body mass index [BMI] 19.9 or less, adult | CPT/HCPCS: 97803 ==

== ENCOUNTER 2023-03-19 10:48 | Outpatient (AMB) | payer MEDICAID, SELFPAY ==
--- NOTE | 2023-03-19 10:51 | MHC.OFFVIS ---
Intake Vital Signs 03/19/23 10:56 Height 6 ft Weight 105 lb BMI 14.2 BP 103/70 Blood Pressure Location Lt brachial Position Sitting Pulse 101 H Intake Visit Reasons: follow up Intake Note: Patient follow up for Epigastric abdominal pin. Patient denies any GI issues. Licensed Social Worker Required: No Accompanied by: Self / Same As Patient Allergies chlorhexidine [CHLORHEXIDINE] Allergy (Intermediate, Verified 03/19/23 10:51) HIVES HPI follow up HPI Details LAST VISIT: Severely underweight adult Weight gain of 11 lb since last January. Continue high-protein diet. Patient was encouraged to eat often. Follow-up with health and physical education teacher GERD (gastroesophageal reflux disease) Continue on pantoprazole and sucralfate. Continue avoiding dietary triggers in late night snacking. Staying upright for minimal 3 hours after meals discussed with patient. Epigastric abdominal pain As mentioned above continue current PPI does and sucralfate at bedtime. Continue avoiding dietary triggers. Eating often and smaller meals. I will see patient in 6 months, sooner on as needed basis. Patient is agreeable to this plan and verbalizes understanding of instructions. He was given the opportunity to ask questions and all questions answered. ? Thank you for allowing me to participate in his care Plan Medications Refilled sucralfate 1 g PO BEDTIME 90 tabs 1RF K21.9 - Gastro-esophageal reflux disease without esophagitis, K29.81 - Duodenitis with bleeding Discontinued simethicone Discontinued Reason: Doctor's Order 125 mg PO BID-QID PRN 120 caps 3RF abdominal distention TODAY'S VISIT: Patient is here today for follow-up. Patient reports that he had oral surgery couple weeks ago and he was unable to eat anything for over 1 week except for liquids. Patient states that he lost few lb. Has earlier appointment with his health and physical education teacher in the beginning of next month. Patient reports that he has been feeling well otherwise. Takes pantoprazole in the morning and sucralfate at bedtime and his symptoms are suppressed. Patient denies any epigastric pain or discomfort. Denies dyspepsia, dysphagia or odynophagia. Denies any nausea or vomiting. Is starting to drink more protein shakes, eating soups and more solid food. Patient was able to eat rice and potatoes the other day. [facility] Medical History History of anxiety Difficulty swallowing CHF (congestive heart failure) Mitral valve disease Palpitations Cardiomyopathy Spinal pain H. pylori infection Social History Alcohol intake: never Patient Tobacco Use Status: Never used Tobacco Current occupational status: disabled Current occupation: right handed Review of Systems Const Denies weight gain and Denies weight loss ENT Reports no additional complaints, Denies dysphagia and Denies odynophagia Card Reports no additional complaints Resp Reports no additional complaints GI Denies abdominal pain, Denies belching, Denies melena, Denies bloating, Denies change in bowel habits, Denies dysphagia, Denies excessive flatus, Denies dyspepsia, Denies heartburn, Denies diarrhea, Denies loose stools, Denies nausea, Denies odynophagia and Denies vomiting Reports no additional complaints Musc Reports no additional complaints Neuro Reports no additional complaints Psych Reports no additional complaints Endo Reports no additional complaints Physical Exam Vital Signs: Last Vital Signs Pulse 101 H 03/19/23 10:56 BP 103/70 03/19/23 10:56 BMI result Body Mass Index 14.2 Const General: healthy appearing, no acute distress and well developed Nutritional Appearance: thin and underweight Orientation/consciousness: patient oriented x3 Resp Effort & Inspection: normal respiratory effort, able to speak in complete sentences, no tracheal deviation and symmetric chest movement Auscultation: clear to auscultation bilaterally Cardio Rate: regular rate GI Inspection: Yes normal to inspection and No distended Palpation (GI): Soft to palpation, not firm, nontender and No hepatosplenomegaly present Auscultation: normal bowel sounds General: Yes no CVA tenderness Back/Spine/Pelvis Back: no CVA tenderness Skin General skin exam: elasticity normal, turgor normal and dry skin Neuro General: patient oriented x3 Psych Appearance: grossly normal Mental Status: mental status grossly normal Assessment & Plan Assessment & Plan (1) Severely underweight adult: Code(s): R63.6 - Underweight (2) GERD (gastroesophageal reflux disease): Code(s): K21.9 - Gastro-esophageal reflux disease without esophagitis Qualifiers: Esophagitis presence: without esophagitis Qualified Code(s): K21.9 - Gastro-esophageal reflux disease without esophagitis (3) Epigastric abdominal pain: Code(s): R10.13 - Epigastric pain (4) SMAS (superior mesenteric artery syndrome): Code(s): K55.1 - Chronic vascular disorders of intestine Plan Patient will continue pantoprazole in the morning and sucralfate at night time. Patient will continue to gain weight. Encouraged to try protein shakes, use [place] breakfast in milk and try to eat high-calorie food as much as possible. SMAS was evaluated by vascular surgeon. Hopefully if patient will gain weight this might resolve. He has appointment with him in May. Patient has an appointment with dietitian on April 08. Currently patient does not have any GI concerning symptoms. Patient will return in the office in 6 months, sooner on as needed basis. Patient is agreeable to this plan and verbalizes understanding of instructions. He was given the opportunity to ask questions and all questions answered. Thank you for allowing me to participate in his care Medications: Refilled pantoprazole 20 mg PO DAILY 90 tabs 2RF sucralfate 1 g PO BEDTIME 90 tabs 2RF K21.9 - Gastro-esophageal reflux disease without esophagitis, K29.81 - Duodenitis with bleeding Coding Level of Care Code Est Pt Level 4 (24752) Diagnoses Severely underweight adult R63.6 Gastroesophageal reflux disease without esophagitis K21.9 Esophagitis presence: without esophagitis Epigastric abdominal pain R10.13 SMAS (superior mesenteric artery syndrome) K55.1 Time Spent (min) 35 Comment 20 minutes spent with patient and additional 15 minutes spent reviewing his records
[2023-03-19 10:56] VITALS: BP 103/70; PULSE 101; BMI 14.2
== END 2023-03-19 11:21 | disposition home or self-care (01) ==
PROVIDERS: PCP Internal Medicine; Visit Provider Nurse Practitioner Family
DX: R63.6 Underweight (principal); K21.9 Gastro-esophageal reflux disease without esophagitis; R10.13 Epigastric pain; K55.1 Chronic vascular disorders of intestine
CPT/HCPCS: 99214

== ENCOUNTER → 2023-03-19 10:48 | Outpatient (BNVA) | payer MEDICAID, SELFPAY | PROVIDERS: PCP Internal Medicine; Visit Provider Nurse Practitioner Family | DX: R63.6 Underweight (principal); Z68.1 Body mass index [BMI] 19.9 or less, adult; R10.13 Epigastric pain; K21.9 Gastro-esophageal reflux disease without esophagitis; K55.1 Chronic vascular disorders of intestine; Z79.899 Other long term (current) drug therapy | CPT/HCPCS: 99212 ==

== ENCOUNTER 2023-06-01 12:41 | Outpatient (AMB) | payer MEDICAID, SELFPAY ==
--- NOTE | 2023-06-01 12:46 | MHC.AMNUTRGE ---
Intake VS Expanded 06/01/23 13:01 06/01/23 13:02 Height 6 ft Weight 106 lb BMI 14.4 Comment today was 111 lbs with jeans and sweatpants under wt w daouble layer of pants ( - 5lbs, est 106 lbs) Intake Visit Reasons: Monitor weight/CONFIRMED Allergies chlorhexidine [CHLORHEXIDINE] Allergy (Intermediate, Verified 03/19/23 10:51) HIVES HPI Nutrition Presentation Details Pt presents for MNT f/u for underweight Pt reports having 2-3 meals a day , working on not going long hours without eating had tooth extraction in March 11/2024 (molar d/t cavities) Pt reports including carnation instant breakfast ( 1-2 twice a day, with milk added and has cereal (cheerios or frosted flakes) choosing juices in place of water (tried naked juices ) 9-10 am getting up earliera having: oatmeal milk, sugar and strawberry , made with milk 2pm: pasta meal (with cheese and meat sauce) and juice 6-7 pm: rice/boone and chicken or pasta meal or cereal Not on nutritional supplements yet- ( Most Recent Diabetes Results: No Data to Display [facility] Medical History History of anxiety Difficulty swallowing CHF (congestive heart failure) Mitral valve disease Palpitations Cardiomyopathy Spinal pain H. pylori infection Social History Alcohol intake: never Patient Tobacco Use Status: Never used Tobacco Current occupational status: disabled Current occupation: right handed Assessment & Plan Assessment & Plan (1) Severely underweight adult: Code(s): R63.6 - Underweight Plan: Educate Pt on continuing to increase nutrient dense foods and calories by 500-1000 per day from small meals throughout the day , choosing soft foods Pt may benefit from additional nutrition support to promote weight gain Recommend prescribing Ensure enlive nutritional supplements to have 3 a day related to SMAS, severely underweight which will provide 1050 calories and 60 g protein/day- Pt reports these were not covered by insurance in the past and may have one a day or a couple of times in the week- additional coupons were provided ? Current wt: 48 kg ( 05/2023) , 50.3kg (03/03/23), 51.2 kg(10/15/22) 47 kg(10/16/21), 48.6 kg (05/05/22), IBW: 178 lbs Est kcal as per MSJ : 1784 +1500/2500= 3284- 4284 (40% carb, 30% fat/prot) Est fluid needs: 8299-2315 (30 ml/kg IBW of 178 lbs Rec fiber: increase to 8-10 g per day Rec Na: < 2000 mg /d prot needs 1-1.2 kg IBW: 81-97 g/d Educate patient on: (R= Reviewed, V = verbalizes understanding N/R= Needs review N/A= not applicable) Increasing calories by 1000 per day via: having 3 meals day RV including protein sources of foods in meals importance of vitamins and minerals from food for nerve conduction RV including nutrient dense snacks in between meals R V meal supplements in between meals RV, aim at consuming 3 - 350 calories nutritional supplements Patient Instructions: Include snack in between , aim to have nutrient dense liquids for example: milkshakes (try a variety (fruits/ice cream, yogurt, nutritional suppplements, jello, milk with flavor) , creamy soups use coupons for nutritional supplements- coupons provided Coding Level of Care Code Nutr Indiv Subseq (99864) Diagnoses Severely underweight adult R63.6 Time Spent (min) 20
[2023-06-01 13:01] VITALS: BMI 14.4
== END 2023-06-01 13:32 | disposition home or self-care (01) ==
PROVIDERS: PCP Internal Medicine; Visit Provider Dietitian, Registered
DX: R63.6 Underweight (principal)

== ENCOUNTER → 2023-06-01 12:41 | Outpatient (BNVA) | payer MEDICAID, SELFPAY | PROVIDERS: PCP Internal Medicine; Visit Provider Dietitian, Registered | DX: R63.6 Underweight (principal) | CPT/HCPCS: 97803 ==

== ENCOUNTER 2023-07-28 13:43 | Outpatient (AMB) | payer MEDICAID, SELFPAY ==
[2023-07-28 14:08] VITALS: BMI 15.1
--- NOTE | 2023-07-28 14:08 | MHC.AMNUTRGE ---
VS Expanded 07/28/23 14:08 Height 6 ft Weight 111 lb 8.862 oz BMI 15.1 Intake Visit Reasons: Monitor weight/LVM Allergies chlorhexidine [CHLORHEXIDINE] Allergy (Intermediate, Verified 03/19/23 10:51) KRISTIN Nutrition Presentation Details: Pt presents for MNT for severely underweight Pt reports he was sick with infection last week and appetite was reduced He acknowledges and verbalizes importance of meal routine and choosing nutrient dense foods/beverages, easy to digest Reports consistently Having 2 meal a day (pasta/meat sauce/garcia or sugary cereal and whole milk at night ) however skipping breakfast reports having 1-2 nutritional supplements a day as snack (does not add additional food) BS Monitoring Most Recent Diabetes Results: No Data to Display [facility] Medical History History of anxiety Difficulty swallowing CHF (congestive heart failure) Mitral valve disease Palpitations Cardiomyopathy Spinal pain H. pylori infection Social History Alcohol intake: never Patient Tobacco Use Status: Never used Tobacco Current occupational status: disabled Current occupation: right handed Assessment & Plan Assessment & Plan (1) Severely underweight adult: Code(s): R63.6 - Underweight Category: Medical Plan: Educate Pt on continuing to increase nutrient dense foods and calories by 500-1000 per day from small meals throughout the day , choosing soft foods Pt may benefit from additional nutrition support to promote weight gain Recommend prescribing Ensure enlive nutritional supplements to have 3 a day related to SMAS, severely underweight which will provide 1050 calories and 60 g protein/day- Pt reports these were not covered by insurance in the past and may have one a day or a couple of times in the week- additional coupons were provided ? Current wt: 50 kg (07/2023) , 48 kg ( 05/2023) , 50.3kg (03/03/23), 51.2 kg(10/15/22) 47 kg(10/16/21), 48.6 kg (05/05/22), IBW: 178 lbs Est kcal as per MSJ : 1784 +1500/2500= 3284- 4284 (40% carb, 30% fat/prot) Est fluid needs: 8180-8153 (30 ml/kg IBW of 178 lbs Rec fiber: increase to 8-10 g per day Rec Na: < 2000 mg /d prot needs 1-1.2 kg IBW: 81-97 g/d Educate patient on: (R= Reviewed, V = verbalizes understanding N/R= Needs review N/A= not applicable) Increasing calories by 1000 per day via: having 3 meals day RV including protein sources of foods in meals importance of vitamins and minerals from food for nerve conduction RV including nutrient dense snacks in between meals R V meal supplements in between meals RV, aim at consuming 3 - 350 calories nutritional supplements Patient Instructions: Do not skip meals Have 3 meals per day ( greater than 1500 calories per meals 3 meals per day and greater than 500 calories per snack , 3 snack per day - keep a food record for self assessment Add ice cream to the milk ( to make a milkshake add honey to the yogurt Coding Level of Care Code Nutr Indiv Subseq (84168) Diagnoses Severely underweight adult R63.6 Time Spent (min) 20
== END 2023-07-28 14:59 | disposition home or self-care (01) ==
LOC: HO.ENCR 13:55
PROVIDERS: PCP Internal Medicine; Visit Provider Dietitian, Registered
DX: R63.6 Underweight (principal)

== ENCOUNTER → 2023-07-28 13:55 | Outpatient (BNVA) | payer MEDICAID, SELFPAY | PROVIDERS: PCP Internal Medicine; Visit Provider Dietitian, Registered | DX: R63.6 Underweight (principal); Z68.1 Body mass index [BMI] 19.9 or less, adult; Z71.3 Dietary counseling and surveillance | CPT/HCPCS: 97803 ==

== ENCOUNTER 2023-11-16 11:46 | Outpatient (AMB) | payer MEDICAID, SELFPAY ==
[2023-11-16 11:48] VITALS: BMI 14.8
--- NOTE | 2023-11-16 11:48 | A.OFFVIS_ITS ---
VS Expanded 11/16/23 11:48 Height 6 ft Weight 109 lb BMI 14.8 Intake Visit Reasons: monitor weight/CONFIRMED Allergies chlorhexidine [CHLORHEXIDINE] Allergy (Intermediate, Verified 03/19/23 10:51) HIVES Nutrition Presentation Details: Pt presents for MNT f/u for severely underweight. 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 Reports having tried meal supplements which he tends to make smoothies with fruit added Wt hx: 103 lbs in 10/2021, 11/2021 at 103 107 lbs 04/2022 112 lbs 10/2022 110 lbs 02/2023 111 lbs 07/2023 Today 109 lbs 11/2023 Pt has hx of SMAS does not take multivitamin declines referral to mental health care therapist to discuss underlying reasons for reduced appetite BS Monitoring Most Recent Diabetes Results: No Data to Display [facility] Medical History History of anxiety Difficulty swallowing CHF (congestive heart failure) Mitral valve disease Palpitations Cardiomyopathy Spinal pain H. pylori infection Social History Alcohol intake: never Patient Tobacco Use Status: Never used Tobacco Current occupational status: disabled Current occupation: right handed Assessment & Plan Assessment & Plan (1) Severely underweight adult: Code(s): R63.6 - Underweight Category: Medical Plan: Educate Pt on continuing to increase nutrient dense foods and calories by 500- 1000 per day, aiming at > 4000 consistent caloric intake per day from small meals throughout the day , choosing soft foods Pt reports having 1-3 nutritional supplement per day each containing 350 calories.(3 da day will proivde 1050 calories and 60 g protein/day) ? Current wt: 49.5 kg (11/2023) , 50.9 kg(10/15/22) 46.8 kg(10/16/21), IBW: 178 lbs , Pt's goal weight 130 lbs Est kcal as per MSJ : 1784 +1500/2500= 3284- 4284 (40% carb, 30% fat/prot) Est fluid needs: 2187-3001 (30 ml/kg IBW of 178 lbs Rec fiber: increase to 8-10 g per day Rec Na: < 2000 mg /d prot needs 1-1.2 kg IBW: 81-97 g/d Educate patient on: (R= Reviewed, V = verbalizes understanding N/R= Needs review N/A= not applicable) Increasing calories by 1000 per day via: * having 3 meals day and snack in between meals , choosing nutrient/calorie dense foods RV * including protein sources of foods in meals importance of vitamins and minerals from food for nerve conduction RV * including nutrient dense snacks in between meals R V * meal supplements in between meals RV, aim at consuming 3 - 350 calories nutritional supplements in addition to meals/snack for Patient Instructions: Resume working on 3 meals and 3 snack -choosing high calories, nutrient dense foods example Breakfast meal : 3- 4 starches, 3 dairy, 3 protein , 1 fruit (example at least 3 cups of cereal (choose your favorite cereal , cold or hot cereal) add at least 3 cups of whole milk, add a banana or fruit of choice , add 1/2 to 1 scoop of whey protein powder to the milk, add additional sugar or fruit for flavors Snack : nutritional supplements + 1 starches and 2 protein (1/2 sand or crackers with peanut butter or pastry with cheese Lunch: 3-4 starches, 3 protein , 1 vegetable, 1 fruit, 3 dairy : sandwich with chicken salad , fruit salad or smoothie with fruit snack nutrtional supplement + donut with nut butter dinner: 5 starches , 5 protein , 2 veg, : 5 oz root vegetables or 5 c of rice/beans, 5 oz of poultry with 1 c of carrots/squash, add 1 -2 tbsp jignesh additional to the meal snack 2 starches, 2 dairy: 2 c oatmeal and 2 cup of milk with additional food for flavor (dried fruits, nuts, sugar as example) Work on not skipping meals, track total amount of calories Coding Level of Care Code Nutr Indiv Subseq (93442) Diagnoses Severely underweight adult R63.6 Time Spent (min) 20
== END 2023-11-16 12:15 | disposition home or self-care (01) ==
PROVIDERS: PCP Internal Medicine; Visit Provider Dietitian, Registered
DX: R63.6 Underweight (principal)

== ENCOUNTER → 2023-11-16 11:46 | Outpatient (BNVA) | payer MEDICAID, SELFPAY | PROVIDERS: PCP Internal Medicine; Visit Provider Dietitian, Registered | DX: R63.6 Underweight (principal); Z68.1 Body mass index [BMI] 19.9 or less, adult; Z71.3 Dietary counseling and surveillance | CPT/HCPCS: 97803 ==

== ENCOUNTER 2023-12-11 15:57 | Emergency (ER) | payer MEDICAID, SELFPAY ==
--- NOTE | ~2023-12-11 | CT_ITS ---
EXAMINATION: CT ABDOMEN AND PELVIS WITHOUT CONTRAST CLINICAL INFORMATION: Flank pain COMPARISON: 01/14/2021 ultrasound TECHNIQUE: Multidetector volumetric imaging was performed from the superior aspect of the liver through the pubic symphysis. Sagittal and coronal reformatted images were obtained on the technologist's workstation. This CT examination was performed using dose optimization techniques as appropriate, variously including the following: *Automated exposure control *Adjustment of mA and/or kV according to patient size (this includes techniques or standardized protocols for targeted exams where dose is matched to indication/reason for exam; i.e. extremities or head) *Use of iterative reconstruction technique DLP: 255 mGy-cm FINDINGS: LUNG BASES: The visualized lung bases are unremarkable. LIVER, GALLBLADDER, AND BILIARY TREE: The liver is normal in size, shape, and attenuation. No focal hepatic lesion or biliary ductal dilatation is present. The gallbladder is unremarkable with no evidence of radiopaque gallstones, gallbladder wall thickening, or obvious pericholecystic inflammatory changes. PANCREAS: Unremarkable. SPLEEN: Unremarkable. ADRENAL GLANDS: Unremarkable. KIDNEYS AND URETERS: The kidneys are normal in size, shape, and attenuation. There is mild fullness of the left renal collecting system. This paucity of intra-abdominal pelvic fat limiting assessment. There is a 5 mm calcified lesion left pelvis which could represent a distal ureteral calculus. Correlate symptomatology. BLADDER: Unremarkable. GASTROINTESTINAL TRACT: The small and large bowel are notable for large amount stool throughout the colon. No definite inflammatory changes. Appendix is not well demonstrated. No inflammatory changes of the cecal base.. ABDOMINAL WALL: No significant hernia is appreciated. LYMPH NODES: Normal. VASCULAR: Unremarkable. PELVIC VISCERA: Unremarkable. OSSEOUS STRUCTURES: Unremarkable. CT/CT abdomen pelvis wo IV con IMPRESSION: Mild left-sided hydronephrosis and hydroureter suspected to be related to a 5 mm distal left ureteral calculus. Please correlate with symptomatology. A phlebolith can mimic this appearance. Fleischner guidelines were followed. Electronically signed by: Thom Bob MD 12/11/2023 05:22 PM EDT
[2023-12-11 16:00] VITALS: BP 114/67; PULSE 80; RESP 18; TEMP 36.6; O2SAT 99; BMI 14.0
--- NOTE | 2023-12-11 16:26 | ED_ITS ---
HPI - General Adult General Chief complaint: Abdominal Pain Stated complaint: left side pain Time Seen by Provider: 12/11/23 16:56 Source: patient Mode of arrival: ambulatory Limitations: no limitations History of Present Illness ED Provider: DR. Jacome HPI narrative: 28-year-old gentleman history of SMA syndrome, history of idiopathic cardiomyopathy came in with 1 day of left-sided abdominal pain and tightness in the abdomen, feeling chills, nauseous, no vomiting, last bowel movement was yesterday and patient described it as normal with no blood, no dysuria, no frequency urination, no bloody urine. Related Data Home Medications ?Medication ?Instructions ?Recorded ?Confirmed sacubitril 24 mg-valsartan 26 mg 1 tab PO BID 06/21/20 10/31/21 tablet (Entresto) Previous Rx's ?Medication ?Instructions ?Recorded food supplemt, lactose-reduced See Rx Instructions .Route 12/24/21 (Ensure High Protein oral liquid) .COMPLEX #5,688 mL pantoprazole 20 mg tablet,delayed 20 mg PO DAILY #90 tabs 03/19/23 release sucralfate 1 gram tablet 1 g PO BEDTIME #90 tabs 03/19/23 ibuprofen 600 mg tablet 600 mg PO Q8H PRN pain #10 tabs 12/11/23 ondansetron 4 mg disintegrating 4 mg PO Q8-12H PRN nausea and 12/11/23 tablet vomiting #7 tabs prednisone 20 mg tablet 20 mg PO BID #10 tabs 12/11/23 Allergies Allergy/AdvReac Type Severity Reaction Status Date / Time chlorhexidine [CHLORHEXIDINE] Allergy Intermediate HIVES Verified 12/11/23 16:05 Review of Systems 2 Review of Systems: All other systems are reviewed and are negative Constitutional: Reports as per HPI and Reports no additional constitutional complaints Eyes: Reports as per HPI and Reports no additional eye complaints Reports system reviewed and no additional complaints, except as documented Cardiovascular: Reports as per HPI and Reports no additional cardiovascular complaints Respiratory: Reports as per HPI and Reports no additional respiratory complaints Gastrointestinal: Reports as per HPI and Reports no additional gastrointestinal complaints Genitourinary: Reports no additional female genitourinary complaints Musculoskeletal: Reports no additional musculoskeletal complaints Skin/Breast: Reports system reviewed and no additional complaints, except as docu Psychiatric: Reports no additional psychiatric complaints Endocrine: Reports no additional endocrine complaints Hematologic/Lymphatic: Reports no additional hematologic/lymphatic complaints Allergic/Immunologic: Reports no additional allergic/immunologic complaints Reports system reviewed and no additional complaints, except as documented and Reports Abnormal speech present [facility] Past Medical History Medical History History of anxiety Difficulty swallowing CHF (congestive heart failure) Mitral valve disease Palpitations Cardiomyopathy Spinal pain H. pylori infection Social History Social History Alcohol intake: never Patient Tobacco Use Status: Never used Tobacco Smoked in Last 30 Days: No Use of substances other than those prescribed or required for medical reasons: No Advance Directives: No Advance Directives Information Provided: No Current occupational status: disabled Current occupation: right handed Physical Exam ED Vital Signs: Vital Signs - 24 hr 12/11/23 16:00 12/11/23 18:44 12/11/23 20:26 Temperature 97.8 F 98.7 F 98.6 F Pulse Rate 80 75 74 Respiratory Rate 18 12 17 Blood Pressure 114/67 98/55 L 91/53 L Pulse Oximetry 99 100 99 Oxygen Delivery Method Room Air Room Air Room Air BMI result Body Mass Index 14.0 Vital signs have been reviewed and appear to be correct. Blood pressure elevated. Heart rate normal. Respiratory rate normal. Temperature normal. Oxygen saturation normal. Appearance: Alert. Oriented X3. No acute distress. Head: Normal external exam. Normocephalic. Atraumatic. No Luu signs noted. No raccoon eyes noted Eyes: PERRLA. EOMI. Conjunctiva and sclera normal. Eyelids normal. ENT: TM's Normal. Pharynx normal. Uvula midline. Moist mucous membranes. No trismus noted. No drooling noted. No muffled voice noted. Neck: Normal inspection. Neck supple. FROM. No adenopathy. Thyroid Normal. No meningeal signs. No neck mass noted. CVS: Normal heart rate and rhythm. Heart sound normal. No murmurs noted. Pulses normal throughout. Respiratory: No respiratory distress. Painless inspiration. Breath sounds normal. No wheezes/rales/rhonchi noted. Chest nontender. No accessory muscle usage noted or decreased air movement noted. Abdomen: Soft and nontender. Bowel sounds normal in all 4 quadrants. No distention noted. No organomegaly noted. No visible injury noted. Back: No CVA tenderness. Full range of motion noted. Skin: Skin warm and dry. Normal skin color. Normal skin turgor. No rashes/lesions/lacerations noted. Extremities: No lower extremity edema. Extremities exhibit normal range of motion. Extremities nontender. Neuro: Oriented X 3. Cranial nerve exam: II-XII are grossly intact No motor deficit. No sensory deficit. Reflexes normal. Course Course Course Narrative: RME performed by Fabiola Fowler PA-C. Patient is a 28 year old assigned male at presenting to the emergency department with left sided flank pain. Patient states that he has been having left sided flank pain. Detailed physical exam and review of systems are deferred to the driver wheelchair. Labs and imaging ordered. Patient placed back in the waiting room pending room availability and results. Reevaluation(s) Reevaluation #1: left flank pain, CT consistent of left kidney stone 5 mm with hydronephrosis, feels better after morphine/ Zofran and IV hydration. Patient was instructed to follow-up with urologist. Will start on ibuprofen/Flomax/ prednisone for 5 days. Time: 20:37 Medications Administered Discontinued Medications Generic Name Dose Route Start Last Admin Trade Name Freq PRN Reason Stop Dose Admin Sodium Chloride 1,000 mls @ 999 mls/hr 12/11/23 17:23 12/11/23 17:43 Ns IV 12/11/23 18:23 999 mls/hr .Q1H1M ONE Administration Ketorolac Tromethamine 15 mg 12/11/23 17:23 12/11/23 17:45 Ketorolac Tromethamine 15 Mg/Ml Vial IVPUSH 12/11/23 17:24 15 mg ONCE ONE Administration Morphine Sulfate 2 mg 12/11/23 17:51 12/11/23 17:55 Morphine Sulfate 2 Mg/Ml Cartridge IVPUSH 12/11/23 17:52 2 mg ONCE ONE Administration Protocol Ondansetron HCl 4 mg 12/11/23 17:23 12/11/23 17:43 Ondansetron Hcl 4 Mg/2 Ml Vial IVPUSH 12/11/23 17:24 4 mg ONCE ONE Administration Medical Decision Making Differential Diagnosis Differential Diagnoses: The differential diagnosis associated with the presentation includes ( Renal colic, obstructive kidney stone, UTI, SMA syndrome, colitis, acute appendicitis, electrolyte derangement, severe anemia.) Admission/Observation Consideration of admission/observation: Escalation of care including admission/observation considered Lab Data MDM Lab Attestation statement: I reviewed the patient's lab results. 12/11/23 17:06 12/11/23 17:06 Labs: Lab Results 12/11/23 12/11/23 Range/Units 17:06 17:21 WBC 4.7 L (4.8-10.8) X10*3/uL RBC 4.71 (4.60-5.80) X10*6/uL Hgb 14.5 (14.0-18.0) g/dl Hct 43.4 (42.0-52.0) % MCV 92.1 (80.0-98.0) fL MCH 30.8 (27.0-33.0) pg MCHC 33.4 (31.0-36.0) g/dl RDW 13.5 (11.0-16.0) % Plt Count 166 (160-400) X10*3/uL MPV 12.4 (9.4-12.4) fL Immature Gran % (Auto) 0.2 (0.0-0.4) % Neut % (Auto) 51.3 (45-73) % Lymph % (Auto) 40.3 H (20-40) % [place] % (Auto) 6.0 (2-11) % Eos % (Auto) 1.3 (0-4) % Baso % (Auto) 0.9 (0-2) % Lymph # (Auto) 1.9 (1.2-4.9) X10*3/uL [place] # (Auto) 0.3 (0.1-1.2) X10*3/uL Eos # (Auto) 0.1 (0.0-0.4) X10*3/uL Baso # (Auto) 0.0 (0.0-0.2) X10*3/uL Abs Immat Gran (auto) 0.01 (0.00-0.03) X10*3/uL Absolute Neuts (auto) 2.4 (2.0-8.3) x10*3/uL Absolute Nucleated RBC 0.000 (0.0-0.012) X10*3/uL Nucleated RBC % (auto) 0.0 (0.0-0.2) /100WBC Sodium 141 (135-145) mmol/L Potassium 4.3 (3.3-5.1) mmol/L Chloride 105 (96-108) mmol/L Carbon Dioxide 29 (22-29) mmol/L Anion Gap 11 L (12-20) BUN 14 (9-16) mg/dL Creatinine 1.11 (0.5-1.4) mg/dL Estim Creat Clear Calc 65.4 Estimated GFR > 60 Random Glucose 126 H (60-115) mg/dL Calcium 9.2 D (8.4-10.2) mg/dL Magnesium 2.2 (1.6-2.6) mg/dL Total Bilirubin 0.7 (0.0-1.0) mg/dL AST 14 (5-37) U/L ALT 12 (0-40) U/L Alkaline Phosphatase 51 (39-117) U/L Total Protein 7.6 (6.5-8.0) g/dL Albumin 4.6 (3.5-5.0) g/dL Urine Color Yellow Urine Appearance Cloudy Urine pH 8.0 (5.0-9.0) Ur Specific [place] 1.025 (1.005-1.025) Urine Protein 30 (1+) H (Neg-Trace) mg/dL Urine Glucose (UA) Negative (Negative) mg/dL Urine Ketones Negative (Negative) mg/dL Urine Blood Large (3+) H (Negative) Urine Nitrite Negative (Negative) Ur Leukocyte Esterase Trace H (Negative) Urine RBC >20 H (0-2) /HPF Urine WBC 0-5 (0-5) /HPF Ur Squamous Epith Cells 0-2 (0-2) /HPF Urine Bacteria None Seen (None Seen) Hyaline Casts 0-2 (0-2) /LPF Influenza Type A (PCR) NEGATIVE (Negative) Influenza Type B (PCR) NEGATIVE (Negative) RSV RNA Qual (PCR) NEGATIVE (Negative) SARS-CoV-2 RNA (RT-PCR) NEGATIVE (Negative) Independent Interpretation I performed an independent interpretation of an: CT Scan (Mild left-sided hydronephrosis and hydroureter suspected to be related to a 5 mm distal left ureteral calculus. Please correlate with symptomatology. A phlebolith can mimic this appearance. ) Discharge Plan Discharge Clinical Impression: Calculus of kidney Patient Disposition: Home, Self-Care Instructions: Kidney Stones (ED) Prescriptions: New ibuprofen 600 mg tablet 600 mg PO Q8H PRN (Reason: pain) Qty: 10 0RF ondansetron 4 mg tablet,disintegrating 4 mg PO Q8-12H PRN (Reason: nausea and vomiting) Qty: 7 0RF prednisone 20 mg tablet 20 mg PO BID Qty: 10 0RF No Action Entresto 24-26 mg tablet 1 tab PO BID Ensure High Protein Liquid See Rx Instructions .ROUTE .COMPLEX Qty: 5688 3RF Rx Instructions: One bottle daily pantoprazole 20 mg tablet,delayed release (DR/EC) 20 mg PO DAILY Qty: 90 2RF sucralfate 1 gram tablet 1 g PO BEDTIME Qty: 90 2RF Referrals: Delroy Pratt MD [Physician] - Iain Hernandez MD [Primary Care Provider] - Print Language: Swedish
[2023-12-11 17:11] LABS: MANUAL DIFF FLAG NO
[2023-12-11 17:12] LABS: Basophils Percent Auto 0.9 % (0-2); Eosinophils Absolute Auto 0.1 X10*3/uL (0.0-0.4); Eosinophils Percent Auto 1.3 % (0-4); Hematocrit 43.4 % (42.0-52.0); Hemoglobin 14.5 g/dl (14.0-18.0); Imm Gran Abs Auto 0.01 X10*3/uL (0.00-0.03); Imm Gran Pct Auto 0.2 % (0.0-0.4); Lymphocytes Absolute Auto 1.9 X10*3/uL (1.2-4.9); Lymphocytes Percent Auto 40.3 % (20-40); Mean Corpuscular HGB Conc 33.4 g/dl (31.0-36.0); Mean Corpuscular Hemoglobin 30.8 pg (27.0-33.0); Mean Corpuscular Volume 92.1 fL (80.0-98.0); Mean Platelet Volume 12.4 fL (9.4-12.4); Monocytes Absolute Auto 0.3 X10*3/uL (0.1-1.2); Neutrophils Absolute Auto 2.4 x10*3/uL (2.0-8.3); Neutrophils Percent Auto 51.3 % (45-73); Platelet Count 166 X10*3/uL (160-400); Red Blood Count 4.71 X10*6/uL (4.60-5.80); Red Cell Distribution Width 13.5 % (11.0-16.0); White Blood Count 4.7 X10*3/uL (4.8-10.8)
[2023-12-11 17:25] LABS: Alanine Aminotransferase 12 U/L (0-40); Albumin Level 4.6 g/dL (3.5-5.0); Alkaline Phosphatase 51 U/L (39-117); Anion Gap 11 (12-20); Aspartate Amino Transferase 14 U/L (5-37); Bilirubin Total 0.7 mg/dL (0.0-1.0); Blood Urea Nitrogen 14 mg/dL (9-16); Calcium 9.2 mg/dL (8.4-10.2); Carbon Dioxide 29 mmol/L (22-29); Chloride 105 mmol/L (96-108); Creatinine Clr Calc Pharmacy 65.4; Estimated Glomerular Filt Rate > 60; Glucose Random 126 mg/dL (60-115); Magnesium 2.2 mg/dL (1.6-2.6); Potassium 4.3 mmol/L (3.3-5.1); Sodium 141 mmol/L (135-145); Total Protein 7.6 g/dL (6.5-8.0)
[2023-12-11 17:31] LABS: Appearance Urine Cloudy; Color Urine Yellow; Glucose Urine UA Negative (Negative); Leukocyte Esterase Urine Trace (Negative); Nitrite Urine Negative (Negative); Specific Gravity - Urine 1.025 (1.005-1.025); UMIC TRIGGER UACC YES; Urine Blood Large (3+) (Negative); Urine Ketones Negative (Negative); Urine Protein 30 (1+) mg/dL (Neg-Trace)
[2023-12-11] MEDS: ondansetron HCL 4 MG/2 ML VIAL IVPUSH (17:43)
[2023-12-11] MEDS: 0.9 % Sodium Chloride 1,000 ML 999 ML IV (17:43)
[2023-12-11] MEDS: Ketorolac Tromethamine 15 MG/ML VIAL IVPUSH (17:45)
--- NOTE | 2023-12-11 17:49 | PC.NURSE ---
pt to ED from home, reporting left sided abd pain and tightness for 1 day. he is nauseous and denied vomiting but vomited once in the ER. some left flank tenderness as well.
[2023-12-11 17:50] LABS: Bacteria Urine None Seen (None Seen); Hyaline Casts Urine 0-2 /LPF (0-2); RBC Urine >20 /HPF (0-2); Squamous Epithelial Cell Urine 0-2 /HPF (0-2); WBC Urine 0-5 /HPF (0-5)
[2023-12-11] MEDS: Morphine Sulfate 2 MG/ML CARTRIDGE IVPUSH (17:55)
[2023-12-11 18:12] LABS: Influenza A PCR NEGATIVE (Negative); Influenza B PCR NEGATIVE (Negative); Resp Syncy Virus RNA Qual PCR NEGATIVE (Negative); SARS COV2 PCR INHOUSE NEGATIVE (Negative)
[2023-12-11 18:44] VITALS: BP 98/55; PULSE 75; RESP 12; TEMP 37.1; O2SAT 100
[2023-12-11 20:26] VITALS: BP 91/53; PULSE 74; RESP 17; TEMP 37; O2SAT 99
[2023-12-11 21:08] VITALS: BP 90/63; PULSE 90; RESP 17; TEMP 37.3; O2SAT 100
== END 2023-12-11 21:23 | disposition home or self-care (01) ==
PROVIDERS: Physician Assistant Medical; Emergency Provider Emergency Medicine; PCP Internal Medicine
DX: N13.2 Hydronephrosis with renal and ureteral calculous obstruction (principal); R10.9 Unspecified abdominal pain; Z03.818 Encounter for observation for suspected exposure to other biological agents ruled out
CPT/HCPCS: 0241U; 74176; 80053; 81001; 83735; 85025; 96374; 96375; 99284; 99285; J1885; J2270; J2405

== ENCOUNTER 2023-12-28 08:45 | Outpatient (AMB) | payer MEDICAID, SELFPAY ==
[2023-12-28 09:12] VITALS: BMI 13.8
--- NOTE | 2023-12-28 09:12 | A.OFFVIS_ITS ---
VS Expanded 12/28/23 09:12 Height 6 ft Weight 102 lb 2.1 oz BMI 13.8 Intake Visit Reasons: Monitor weight Allergies chlorhexidine [CHLORHEXIDINE] Allergy (Intermediate, Verified 12/11/23 16:05) HIVES Nutrition Presentation Details: Pt presents for MNT f/u for underweight Pt has hx of SMAS Pt reports having had flu like symptoms last week and was vomiting with less appetite. Pt reports feeling better today. Is patient consuming meal supplements: in the past but currently no is patient counting calories ? currently no Is patient seen a mental health care provider? no vomiting? reports last week with flu like symptoms , vomited 2-3 times diarrhea? denies physical activity: reports keeping sedentary food frequency Dairy 3 cups 4 x/wk starches: 15 servings/d (rice/pasta mainly, likes pizza, donuts) fruits: not including vegetables: tomato (in sauces) protein foods: beef, protein shake, cheese, beef/pork beverages: water, juice BS Monitoring Most Recent Diabetes Results: Creatinine 1.11 mg/dL (0.5-1.4) 12/11/23 Blood Urea Nitrogen 14 mg/dL (9-16) 12/11/23 Sodium 141 mmol/L (135-145) 12/11/23 Potassium 4.3 mmol/L (3.3-5.1) 12/11/23 Chloride 105 mmol/L (96-108) 12/11/23 Carbon Dioxide 29 mmol/L (22-29) 12/11/23 Calcium 9.2 mg/dL (8.4-10.2) 12/11/23 AST 14 U/L (5-37) 12/11/23 ALT 12 U/L (0-40) 12/11/23 Total Protein 7.6 g/dL (6.5-8.0) 12/11/23 Albumin 4.6 g/dL (3.5-5.0) 12/11/23 [facility] Medical History History of anxiety Difficulty swallowing CHF (congestive heart failure) Mitral valve disease Palpitations Cardiomyopathy Spinal pain H. pylori infection Social History Alcohol intake: never Patient Tobacco Use Status: Never used Tobacco Current occupational status: disabled Current occupation: right handed Assessment & Plan Assessment & Plan (1) Severely underweight adult: Code(s): R63.6 - Underweight Category: Medical Plan: Pt lost 5-6 lbs in the past 6 weeks , reports this was related to recent cold/flu like symptoms with vomiting. Pt reports feeling well today. weight Importance of hydration was discussed , choose fluids with calories: juices, broth, sherberts Resume nutritional supplements ( each containing 350 calories.(3 da day will proivde 1050 calories and 60 g protein/day) Educate Pt on continuing to increase nutrient dense foods and calories by 500- 1000 per day, aiming at > 4000 consistent caloric intake per day from small meals throughout the day , choosing soft foods ? Current wt: , 46.3 kg (12/29) 49.5 kg (11/2023) , 50.9 kg(10/15/22) 46.8 kg(10/16/21), IBW: 178 lbs , Pt's goal weight 130 lbs Est kcal as per MSJ : 1784 +1500/2500= 3284- 4284 (40% carb, 30% fat/prot) Est fluid needs: 2886-9132 (30 ml/kg IBW of 178 lbs Rec fiber: increase to 8-10 g per day Rec Na: < 2000 mg /d prot needs 1-1.2 kg IBW: 81-97 g/d Educate patient on: (R= Reviewed, V = verbalizes understanding N/R= Needs review N/A= not applicable) Increasing calories by 1000 per day via: * having 3 meals day and snack in between meals , choosing nutrient/calorie dense foods RV * including protein sources of foods in meals importance of vitamins and minerals from food for nerve conduction RV * including nutrient dense snacks in between meals R V * meal supplements in between meals RV, aim at consuming 3 - 350 calories nutritional supplements in addition to meals/snack for * Hydrate by having sherberts, fruit juices, milkshakes, soups Patient Instructions: Keep hydrated by having juices, whole milk, soups, shakes Choose soups (rice/egg noodles, with eggs added resume keeping track of your calories goal no less than 4000 calories per day , choose a variety of foods you enjoy, bring record to next follow up Coding Level of Care Code Nutr Indiv Subseq (42363) Diagnoses Severely underweight adult R63.6 Time Spent (min) 30
== END 2023-12-28 10:08 | disposition home or self-care (01) ==
PROVIDERS: PCP Internal Medicine; Visit Provider Dietitian, Registered
DX: R63.6 Underweight (principal)

== ENCOUNTER → 2023-12-28 08:45 | Outpatient (BNVA) | payer MEDICAID, SELFPAY | PROVIDERS: PCP Internal Medicine; Visit Provider Dietitian, Registered | DX: R63.6 Underweight (principal); Z68.1 Body mass index [BMI] 19.9 or less, adult; Z71.3 Dietary counseling and surveillance | CPT/HCPCS: 97803 ==

== ENCOUNTER 2024-01-12 10:24 | Outpatient (REF) | payer MEDICAID, SELFPAY ==
[2024-01-19 02:03] LABS: Stone Source KIDNEY STONE
== END 2024-01-12 10:25 | disposition home or self-care (01) ==
LOC: HO.LNP 10:24
PROVIDERS: PCP Internal Medicine; Visit Provider Urology
DX: N20.0 Calculus of kidney (principal)
CPT/HCPCS: 82365; 88300; 99202

== ENCOUNTER 2024-01-12 10:24 | Outpatient (AMB) | payer MEDICAID, SELFPAY ==
--- NOTE | 2024-01-12 10:35 | A.OFFVIS_ITS ---
Intake Visit Reasons: ureteral stone/hyrdoureter/hydronephrosis Intake Note: Patient is present for URETERAL STONE/HYRDOURETER/HYDRONEPHROSIS Urology Medication:NONE Antibiotic Allergy:NONE Blood Thinner:NONE Allergies chlorhexidine [CHLORHEXIDINE] Allergy (Intermediate, Verified 01/12/24 10:36) HIVES HPI Comments Details: Henok is a pleasant male. He is a patient of . He is seen for the following urologic conditions - nephrolithiasis Nephrolithiasis Seen in December ER CT scan - distal - There is a 5 mm calcified lesion left pelvis which could represent a distal ureteral calculus Six-month follow-up [facility] Medical History History of anxiety Difficulty swallowing CHF (congestive heart failure) Mitral valve disease Palpitations Cardiomyopathy Spinal pain H. pylori infection Social History Alcohol intake: never Patient Tobacco Use Status: Never used Tobacco Current occupational status: disabled Current occupation: right handed Review of Systems Const Denies chills and Denies fever(s) Card Reports no additional complaints and Denies syncope Resp Denies cough GI Denies abdominal pain and Denies heartburn Reports as per HPI and Denies change in libido Neuro Denies syncope Psych Denies change in libido Endo Denies change in libido Physical Exam Const General: cooperative, healthy appearing, comfortable and no acute distress Orientation/consciousness: patient oriented x3 HEENT Face and sinus: Yes normal facial exam Mouth: moist mucous membranes Neck Neck: Yes normal visual inspection, Yes full ROM and Yes trachea midline Chest Chest palpation & inspection: normal inspection of the chest Resp Effort & Inspection: normal respiratory effort, able to speak in complete sentences and no respiratory distress GI Inspection: Yes normal to inspection Back/Spine/Pelvis Cervical Spine: normal cervical lordosis Thoracic/Lumbar Spine: thoracic and lumbar spine normal to inspection Skin General skin exam: no rashes or lesions noted Neuro General: patient oriented x3, gait normal, tone normal and moves all extremities Extrem General: Yes normal to inspection and Yes capillary refill normal Assessment & Plan Assessment & Plan (1) Calculus of kidney: Code(s): N20.0 - Calculus of kidney Category: Medical Plan Six-month follow-up renal ultrasound Orders: Orders AMB Urinalysis Automated Today Z13.9 - Encounter for screening, unspecified Surgical Today N20.0 - Calculus of kidney Patient Instructions: Imaging studies, laboratory and physical exam results were discussed and reviewed in detail. No major barriers to patient understanding were identified. An opportunity to ask questions regarding the treatment plan was provided. All questions were answered. The patient expressed understanding and agreement with the above treatment plan. The patient is aware they should contact our office by phone for worsening of their current condition or the appearance of new urologic symptoms. Compliance is encouraged with any medications and followup testing that is ordered. It is a privilege to participate in the urologic care of your patient. If you have any questions or concerns regarding treatment for the above conditions, or other urologic issues, please do not hesitate to contact me. The office telephone contact is [phone]. This note is constructed using voice recognition software. While every effort has been made to ensure accuracy earth science technician errors may have been included. Yours sincerely, Dr Delroy Pratt MD, [facility] - Urology Providers of Expert, Compassionate Care for the Genitourinary System Coding Level of Care Code New Pt Level 3 (78810) Diagnoses Calculus of kidney N20.0
== END 2024-01-12 11:19 | disposition home or self-care (01) ==
LOC: HO.HUSH 10:24
PROVIDERS: PCP Internal Medicine; Visit Provider Urology
DX: N20.0 Calculus of kidney (principal)
CPT/HCPCS: 99203

== ENCOUNTER 2024-02-15 08:43 | Outpatient (AMB) | payer MEDICAID, SELFPAY ==
[2024-02-15 09:00] VITALS: BMI 14.3
--- NOTE | 2024-02-15 09:00 | MHC.OFFVIS ---
Vital Signs 02/15/24 09:00 Height 6 ft Weight 105 lb 8 oz BMI 14.3 Intake Visit Reasons: overdue 6m follow up for abd check Intake Note: Follow up SMA syndrome, states abdominal pain w/ heavy lifting, still struggling to gain weight, states he is drinking ensure. Back Winder Required: No Accompanied by: Self / Same As Patient Allergies chlorhexidine [CHLORHEXIDINE] Allergy (Intermediate, Verified 02/15/24 09:04) HIVES HPI HPI overdue 6m follow up for abd check: Details: Very pleasant 29-year-old gentleman presents for follow-up regarding SMA syndrome and failure to thrive. He is a very frail gaunt 29-year-old who is nearly 6 ft tall. He reports he has been doing somewhat better since his last visit. He is able to tolerate frequent small meals and he has been taking Ensure shakes as supplement. He denies any abdominal discomfort with p.o. intake. He only complains of pain secondary to a kidney stone which was discovered December 10. Other than that he only reports pain on lifting. He now presents for routine follow-up. [facility] Medical History History of anxiety Difficulty swallowing CHF (congestive heart failure) Mitral valve disease Palpitations Cardiomyopathy Spinal pain H. pylori infection Social History Alcohol intake: never Patient Tobacco Use Status: Never used Tobacco Current occupational status: disabled Current occupation: right handed Review of Systems Const All systems reviewed & are unremarkable except as noted in HPI and below Reports no additional complaints ENT Reports Normal hearing present Card Denies chest pain, Denies chest pain at rest, Denies chest pain with activity and Denies pedal edema Resp Denies cough GI Denies abdominal pain Musc Denies abnormal gait, Denies muscle cramps and Denies radiating pain into limb Skin/Breast Denies skin ulcer and Denies wounds Neuro Reports Normal hearing present and Denies abnormal gait Psych Reports no additional complaints Physical Exam Vital Signs: BMI result Body Mass Index 14.3 Const General: cooperative, healthy appearing and comfortable Orientation/consciousness: oriented to person, oriented to place and oriented to time HEENT Head: Yes normal to inspection Neck Neck: Yes normal visual inspection Carotids: no bruits Chest Chest palpation & inspection: normal inspection of the chest Resp Effort & Inspection: normal respiratory effort and able to speak in complete sentences Auscultation: clear to auscultation bilaterally, no crackles, no rales, no rhonchi and no wheezes Cardio Rate: regular rate Rhythm: regular rhythm Heart sounds: S1 normal heart sound present and S2 normal heart sound present Bruits: no carotid bruits Peripheral pulses: Peripheral pulses 2+ throughout GI Inspection: Yes normal to inspection Skin Wounds: no wounds Hair: normal Neuro General: oriented to person, oriented to place and oriented to time Cranial nerves: Yes CN's II-XII intact bilaterally and Yes Normal hearing present Cognition (Neuro): normal cognition Motor exam (neuro): 5/5 motor strength present throughout Extrem Other: venous exam: No significant superficial varicosities or spider telangiectasias, minimal edema General: No clubbing, No cyanosis and No edema Psych Appearance: grossly normal Mental Status: mental status grossly normal Speech and movement: Normal speech and movement present Assessment & Plan Assessment & Plan (1) SMAS (superior mesenteric artery syndrome): Code(s): K55.1 - Chronic vascular disorders of intestine Category: Medical Plan: At the current time his SMA syndrome appears to be stable. Would continue with regular diet. Should there be increased pain or loss significant loss of weight happy to see him back. Thank you for allowing us to assist in his care. If there are any questions or concerns please do not hesitate to contact us. Coding Level of Care Code Est Pt Level 3 (20823) Diagnoses SMAS (superior mesenteric artery syndrome) K55.1
== END 2024-02-15 09:22 | disposition home or self-care (01) ==
PROVIDERS: PCP Internal Medicine; Visit Provider Surgery Vascular Surgery
DX: K55.1 Chronic vascular disorders of intestine (principal)
CPT/HCPCS: 99213

== ENCOUNTER → 2024-02-15 08:43 | Outpatient (BNVA) | payer MEDICAID, SELFPAY | PROVIDERS: PCP Internal Medicine; Visit Provider Surgery Vascular Surgery | DX: K55.1 Chronic vascular disorders of intestine (principal) | CPT/HCPCS: 99212 ==

== ENCOUNTER 2024-03-03 15:31 | Outpatient (REF) | payer MEDICAID, SELFPAY | END 2024-03-03 15:32 | disposition home or self-care (01) | LOC: HO.US 15:31 | PROVIDERS: PCP Internal Medicine; Visit Provider Nurse Practitioner Family | DX: N20.0 Calculus of kidney (principal) | CPT/HCPCS: 76775 ==

== ENCOUNTER → 2024-03-03 15:32 | Outpatient (BNV) | payer MEDICAID, SELFPAY | PROVIDERS: PCP Internal Medicine; Visit Provider Radiology Diagnostic Radiology | DX: N20.0 Calculus of kidney (principal) | CPT/HCPCS: 76775 ==

== ENCOUNTER 2024-03-09 10:43 | Outpatient (AMB) | payer MEDICAID, SELFPAY ==
--- NOTE | 2024-03-09 10:46 | A.OFFVIS_ITS ---
Intake Visit Reasons: 2m/US Intake Note: Patient presents today for follow up on: kidney stone and ultrasound results Imaging Completed: 03/03/24 Urology Medication:none Antibiotic Allergy:none Blood Thinner:none Audiovisual Tech Required: No Accompanied by: Self / Same As Patient Allergies chlorhexidine [CHLORHEXIDINE] Allergy (Intermediate, Verified 03/09/24 10:59) KRISTIN PATTEN Comments Details: Henok is a pleasant 29-year-old male patient of . He has a past medical history of anxiety, congestive heart failure, mitral valve disease, cardiomyopathy, H pylori, and nephrolithiasis. He presents to the office today for follow-up of his nephrolithiasis. Of note, patient was last seen by Dr. Pratt approximately 2 months ago as patient had a distal 5 mm calculus noted on recent CT upon ER for left-sided flank pain/abdominal pain. Recent unofficial renal ultrasound imaging results reviewed with the patient today. Bilateral kidneys with no calculi, lesions, and or hydronephrosis. In discussion with the patient today he reports he has been attempting to increase his fluids daily and adding 1 oz of lemon juice to water daily. He denies any previous history of nephrolithiasis and or surgical intervention for nephrolithiasis. He denies any bothersome urinary issues or concerns. He denies urinary urgency, urinary frequency, incontinence, nocturia, hematuria, dysuria, foul smelling urine, changes to urinary stream, flank pain, fever, and or chills. He is happy with his current voiding parameters. We discussed potential causes of nephrolithiasis as well as further workup. He otherwise offers no other issues or concerns at this time. [facility] Medical History History of anxiety Difficulty swallowing CHF (congestive heart failure) Mitral valve disease Palpitations Cardiomyopathy Spinal pain H. pylori infection Social History Alcohol intake: never Patient Tobacco Use Status: Never used Tobacco Current occupational status: disabled Current occupation: right handed Review of Systems Const All systems reviewed & are unremarkable except as noted in HPI and below Physical Exam Const General: cooperative, comfortable, no acute distress, well developed, alert and awake Nutritional Appearance: thin Orientation/consciousness: patient oriented x3 Limitations: no limitations HEENT Head: Yes normal to inspection, Yes normocephalic and Yes atraumatic Ears: hearing grossly normal bilaterally Eyes General: appearance normal, both eyes and all related structures Neck Neck: Yes normal visual inspection and Yes trachea midline Chest Chest palpation & inspection: normal inspection of the chest Resp Effort & Inspection: normal respiratory effort and able to speak in complete sentences Cardio Rate: regular rate GI Inspection: Yes normal to inspection General: Yes no CVA tenderness Back/Spine/Pelvis Back: no CVA tenderness Skin General skin exam: no rashes or lesions noted Neuro General: patient oriented x3 Extrem General: Yes normal to inspection Psych Appearance: grossly normal and well kempt Mental Status: mental status grossly normal Speech and movement: Normal speech and movement present and Clear speech present Affect: normal affect Attitude: cooperative Thought process: Normal thought process present Thought content: Normal thought content present Insight: Fair insight present (Psych) Judgement: Fair judgement present (Psych) Assessment & Plan Assessment & Plan (1) Calculus of kidney: Code(s): N20.0 - Calculus of kidney Category: Medical Plan Unable to obtain urine for urinalysis Recent renal ultrasound results reviewed with the patient today; as noted above. Patient currently denies any bothersome urinary issues or concerns. He reports be happy with current voiding parameters. We discussed at length potential causes of nephrolithiasis. Will continue with surveillance monitoring at this time. Discussed, educated, and stressed the importance of adequate hydration relation to nephrolithiasis as well as overall health and well-being. Will obtain renal ultrasound in 6 months Follow-up in 6 months with renal ultrasound to be completed prior; or sooner with any issues, concerns, and or questions. Orders: Orders US renal BI 03/03/24 N20.0 - Calculus of kidney US renal BI 6 Months N20.0 - Calculus of kidney Coding Level of Care Code Est Pt Level 3 (48670) Diagnoses Calculus of kidney N20.0
== END 2024-03-09 11:11 | disposition home or self-care (01) ==
PROVIDERS: PCP Internal Medicine; Visit Provider Nurse Practitioner Family
DX: N20.0 Calculus of kidney (principal)
CPT/HCPCS: 99213

== ENCOUNTER → 2024-03-09 10:43 | Outpatient (BNVA) | payer MEDICAID, SELFPAY | PROVIDERS: PCP Internal Medicine; Visit Provider Nurse Practitioner Family | DX: N20.0 Calculus of kidney (principal) | CPT/HCPCS: 99212 ==

== ENCOUNTER 2024-03-23 09:43 | Outpatient (AMB) | payer MEDICAID, SELFPAY ==
[2024-03-23 10:09] VITALS: BMI 14.4
--- NOTE | 2024-03-23 10:09 | A.OFFVIS_ITS ---
VS Expanded 03/23/24 10:09 Height 6 ft Weight 106 lb 5.4 oz BMI 14.4 Intake Visit Reasons: Monitor weight Allergies chlorhexidine [CHLORHEXIDINE] Allergy (Intermediate, Verified 03/09/24 10:59) HIVES Nutrition Presentation Details: Pt presents for MNT f/u for underweight Pt reports working on having 3 meals/day, working on not skipping meals Has 1 ensure per day in between meals 11 3 c cereal with whole milk milk (cornflakes) 2-3 pm: fritter or [place] sandwich , water or juice 7 pm: spaghetti and meat sauce, water or juice or milk 10 pm: ensure and cookies Denies vomiting/diarrhea Reports overall feeling well BS Monitoring Most Recent Diabetes Results: No Data to Display [facility] Medical History History of anxiety Difficulty swallowing CHF (congestive heart failure) Mitral valve disease Palpitations Cardiomyopathy Spinal pain H. pylori infection Social History Alcohol intake: never Patient Tobacco Use Status: Never used Tobacco Current occupational status: disabled Current occupation: right handed Assessment & Plan Assessment & Plan (1) Severely underweight adult: Code(s): R63.6 - Underweight Category: Medical Plan: Resume nutritional supplements ( each containing 350 calories.(3 da day will proivde 1050 calories and 60 g protein/day) Educate Pt on continuing to increase nutrient dense foods and calories by 500- 1000 per day, aiming at > 4000 consistent caloric intake per day from small meals throughout the day , choosing soft foods ? Current wt:: 48.2kg (04/01) 46.3 kg (12/29) 49.5 kg (11/2023) , 50.9 kg(10/15/22) 46.8 kg(10/16/21), IBW: 178 lbs , Pt's goal weight 130 lbs , Wroking on prevention of weight loss and gradual wt gain to 110 lbs by next f/u Est kcal as per MSJ : 1784 +1500/2500= 3284- 4284 (40% carb, 30% fat/prot) Est fluid needs: 5762-2761 (30 ml/kg IBW of 178 lbs Rec fiber: increase to 8-10 g per day Rec Na: < 2000 mg /d prot needs 1-1.2 kg IBW: 81-97 g/d Educate patient on: (R= Reviewed, V = verbalizes understanding N/R= Needs review N/A= not applicable) Increasing calories by 1000 per day via: * having 3 meals day and snack in between meals , choosing nutrient/calorie dense foods RV * including protein sources of foods in meals importance of vitamins and minerals from food for nerve conduction RV * including nutrient dense snacks in between meals R V * meal supplements in between meals RV, aim at consuming 3 - 350 calories nutritional supplements in addition to meals/snack for * Hydrate by having sherberts, fruit juices, milkshakes, soups Patient Instructions: Continue working on not skipping meals , have 3 meals a day and 3 snacks and gradually adding nutrient dense foods to current meals/foods: Example add higher calorie cereals likes raisin bran, granola to current cereal add eggs or cheese to tuna or chicken salad mixture add 1/2 teaspoon additional of oil to your serving at dinner Track your total caloric intake, phone trudi ok , goal 3300-67251 calories per day Coding Level of Care Code Nutr Indiv Subseq (08215) Diagnoses Severely underweight adult R63.6 Time Spent (min) 30
== END 2024-03-23 10:55 | disposition home or self-care (01) ==
PROVIDERS: PCP Internal Medicine; Visit Provider Dietitian, Registered
DX: R63.6 Underweight (principal)

== ENCOUNTER → 2024-03-23 09:43 | Outpatient (BNVA) | payer MEDICAID, SELFPAY | PROVIDERS: PCP Internal Medicine; Visit Provider Dietitian, Registered | DX: R63.6 Underweight (principal); Z71.3 Dietary counseling and surveillance; Z68.1 Body mass index [BMI] 19.9 or less, adult | CPT/HCPCS: 97803 ==

== ENCOUNTER 2024-07-04 13:46 | Outpatient (AMB) | payer MEDICAID, SELFPAY ==
--- NOTE | 2024-07-04 14:13 | A.OFFVIS_ITS ---
VS Expanded 07/04/24 14:18 Height 6 ft Weight 113 lb 5.082 oz BMI 15.4 Intake Visit Reasons: Weight Monitoring Allergies chlorhexidine [CHLORHEXIDINE] Allergy (Intermediate, Verified 03/09/24 10:59) KRISTIN Nutrition Presentation Details: Pt presents for MNT f/u for severely underweight Pt reports Having ensure once a day in between meals ( 350 calories ) Choosing to have 3 meals/day and choosing higher calorie food options intentionally. Pt reports feeling more energetic 24 hr food recall B: large bowl of frosted flakes with whole milk Lunch : 3 slices sandwich with tuna /kim, juice, naked juices or nectars dinner : 3 large slices of cheese pizza, 16 oz juice Pt reports no vomiting , no diarrhea BS Monitoring Most Recent Diabetes Results: No Data to Display [facility] Medical History History of anxiety Difficulty swallowing CHF (congestive heart failure) Mitral valve disease Palpitations Cardiomyopathy Spinal pain H. pylori infection Social History Alcohol intake: never Patient Tobacco Use Status: Never used Tobacco Current occupational status: disabled Current occupation: right handed Assessment & Plan Assessment & Plan (1) Severely underweight adult: Code(s): R63.6 - Underweight Category: Medical Plan: Continue working on gradual increase in total caloric intake from a variety of foods ,continuing to increase nutrient dense foods and calories by 1000 per day, aiming at > 5000 consistent caloric intake per day from small meals throughout the day ? Current wt:: 51.4 kg (06/30) 48.2kg (04/01) 46.3 kg (12/29) 49.5 kg (11/2023) , 50.9 kg(10/15/22) 46.8 kg(10/16/21), IBW: 178 lbs , Pt's goal weight 130 lbs , Working on prevention of weight loss and gradual wt gain to 118 lbs by next f/u Est kcal as per MSJ : 1900 +2000/3000= 4000- 5000 (40% carb, 30% fat/prot) Est fluid needs: 2942-7698 (30 ml/kg IBW of 178 lbs Rec fiber: increase to 8-10 g per day Rec Na: < 2000 mg /d prot needs 1-1.2 kg IBW: 81-97 g/d Educate patient on: (R= Reviewed, V = verbalizes understanding N/R= Needs review N/A= not applicable) Increasing calories by 1000 per day via: * having 3 meals day and snack in between meals , choosing nutrient/calorie dense foods RV * including protein sources of foods in meals importance of vitamins and minerals from food for nerve conduction RV * including nutrient dense snacks in between meals R V * meal supplements in between meals RV, aim at consuming 3 - 350 calories nutritional supplements in addition to meals/snack : Make own shakes with whole milk/ice cream/fruits or whole milk/nut butter/avocado/fruit * Hydrate by having sherberts, fruit juices, milkshakes, soups Patient Instructions: take a multivitamin continue working on increasing calories from nutrient dense foods by 1000 Include 2 eggs on a daily basis (scrambled, boiled, in soups, hot cereals/flan Choose full fat milk/ yogurts/ naked juices apple juice pear juice - Include sauces with olive oil, avocado , nuts, honey, molasses Include smoothies made with ice cream /fruit juice /milk have a dessert with 1-2 meals/day Coding Level of Care Code Nutr Indiv Subseq (86330) Diagnoses Severely underweight adult R63.6 Time Spent (min) 30
[2024-07-04 14:18] VITALS: BMI 15.4
--- OUTSIDE RECORDS SUMMARY | 2024-07-04 15:54 | XMS_ITS | Encounter Summary ---
Demographics Address [address] [facility] [address] [place] [address] Work Phone Home Phone Email Address Preferred Language en Marital Status Single Scientologist Affiliation Unknown Race Other Race Ethnic Group or Author Organization [employer] Address [address] [facility] [address] [facility] [address] [place] [address] Care Team Providers Care Firearms Inspector Name Role Phone Iain Bellamy MD Primary Care Provide r Reason for Visit * Reason Comments Med Refill Encounter Details Date Type Department Care Team ([facility] Contact Info) Description 02/02/2024 Refill [facility] WALK[facility] CENTER [address] [place] [address] Iain Bellamy MD [address] [place] [address] COVID-19 Social History Tobacco Use Types Packs/Day Years Used Date Smoking Tobacco: Never Passive Smoke Exposure: Never Smokeless Tobacco: Never Alcohol Use Standard Drinks/Week Comments Never 0 (1 standard drink = 0.6 oz pur e alcohol) Depression Answer Date Recorded Patient Health Questionnaire-9 Score 3 08/19/2023 Patient Health Questionnaire-9 Score 3 08/19/2023 Last PHQ-9: Questionnaire Data Not on file 0 08/19/2023 Housing Stability Answer Date Recorded What is your housing situation today? I have nahed tan 06/07/[address] you li ve. Do you have problems with any of the following? None of the above 06/07/2023 Food Insecurity Answer Date Recorded Within the past 12 months, y ou worried that your food would run out before you got money to buy more: Never True 06/07/2023 Within the past 12 months,th e food you bought just didn't last and you didn't have enough money to get more: Never True 03/2023 Transportation Answer Date Recorded In the past 12 months, has l ack of transportation kept you from medical appts, meetings, work or from getting things needed for daily living? Yes, it has kept me from medical appointments or getting medications. 06/07/2023 Utilities Answer Date Recorded In the past 12 months, has t he electric, gas, oil or water company threatened to shut off services in your home? No 06/07/2023 Depression Answer Date Recorded Patient Health Questionnaire-2 Score 0 08/19/2023 Sex and Gender Information Value Date Recorded Sex Assigned at Male 01/05/2022 10:22 AM EDT Legal Sex Male 10:22 AM EDT Gender Identity Male 01/05/2022 10:22 AM EDT Sexual Orientation Straight 01/05/2022 10 :22 AM EDT documented as of this encounter Plan of Treatment Upcoming Encounters Date Type Department Care Team (Late st Contact Info) Description 08/22/2024 1:30 PM EDT Office Visit [facility] MEDICINE [address] [place] [address] Iain Bellamy MD [address] [place] [address] documented as of this encounter Visit Diagnoses Diagnosis COVID-19 documented in this encounter Additional Health Concerns Assessment Noted Time PHQ-9 Depression Total Score: 3 08/19/19 24 2:33 PM EDT documented as of this encounter Care Teams Firearms Inspector Relationship Specialty Start Date End Date Iain Bellamy MD [address] [place] [address] PCP - General Internal Medicine 08/24/17 documented as of this encounter
--- OUTSIDE RECORDS SUMMARY | 2024-07-04 15:54 | XMS_ITS | Encounter Summary ---
Demographics Address [address] [facility] [address] [facility] [address] [place] [address] Work Phone Home Phone Email Address Preferred Language en Marital Status Single Jew Affiliation Unknown Race Other Race Ethnic Group or Author Organization [employer] Address [address] [facility] [address] [place] [address] Care Team Providers Care Winder Tender Name Role Phone Iain Bellamy MD Primary Care Provide r Reason for Visit * Reason Comments Med Refill Encounter Details Date Type Department Care Team ([facility] st Contact Info) Description 12/24/2022 Refill [facility] WALK-IN CENTER [address] [place] [address] Iain Bellamy MD [address] [place], [place] [id number] COVID-19 Social History Tobacco Use Types Packs/Day Years Used Date Smoking Tobacco: Never Passive Smoke Exposure: Never Smokeless Tobacco: Never Alcohol Use Standard Drinks/Week Comments Never 0 (1 standard drink = 0.6 oz pur e alcohol) Depression Answer Date Recorded Patient Health Questionnaire-9 Score 1 04/21/2022 Housing Stability Answer Date Recorded What is your housing situation today? I have nahed tan 12/24/[address] you li ve. Do you have problems with any of the following? None of the above 12/24/2022 Food Insecurity Answer Date Recorded Within the past 12 months, y ou worried that your food would run out before you got money to buy more: Never True 12/24/2022 Within the past 12 months,th e food you bought just didn't last and you didn't have enough money to get more: Never True Transportation Answer Date Recorded In the past 12 months, has l ack of transportation kept you from medical appts, meetings, work or from getting things needed for daily living? No 12/24/2022 Utilities Answer Date Recorded In the past 12 months, has t he electric, gas, oil or water company threatened to shut off services in your home? No 12/24/2022 Depression Answer Date Recorded Patient Health Questionnaire-2 Score 0 04/21/2022 Sex and Gender Information Value Date Recorded Sex Assigned at Male 01/05/2022 10:22 AM EDT Legal Sex Male 10:22 AM EDT Gender Identity Male 01/05/2022 10:22 AM EDT Sexual Orientation Straight 01/05/2022 10 :22 AM EDT documented as of this encounter Plan of Treatment Upcoming Encounters Date Type Department Care Team (Late st Contact Info) Description 08/22/2024 1:30 PM EDT Office Visit [facility] MEDICINE [address] [place] [address] Iain Bellmay MD [address] [place] [phone] documented as of this encounter Visit Diagnoses Diagnosis COVID-19 documented in this encounter Additional Health Concerns Assessment Noted Time PHQ-9 Depression Total Score: 1 04/21/19 23 10:56 AM EST documented as of this encounter Care Teams Winder Tender Relationship Specialty Start Date End Date Iain Bellamy MD [address] [place] [id number] PCP - General Internal Medicine 08/24/17 documented as of this encounter
--- OUTSIDE RECORDS SUMMARY | 2024-07-04 15:54 | XMS_ITS | Encounter Summary ---
Author Organization [employer] Address [address] [place] [address] [address] [place] [address] Care Team Providers Care Offbearer Sewer Pipe Name Role Phone Iain Bellamy MD Primary Care Provide r Reason for Visit * Reason Comments Med Refill Encounter Details Date Type Department Care Team (Late st Contact Info) Description 07/02/2022 Refill [facility] WALK[facility]IN CENTER [address] [place] [address] Iain Bellamy MD [address] [place] [address] COVID-19 Social History Tobacco Use Types Packs/Day Years Used Date Smoking Tobacco: Never Passive Smoke Exposure: Never Smokeless Tobacco: Never Alcohol Use Standard Drinks/Week Comments Never 0 (1 standard drink = 0.6 oz pur e alcohol) Depression Answer Date Recorded Patient Health Questionnaire-9 Score 1 04/21/2022 Depression Answer Date Recorded Patient Health Questionnaire-2 [...] Description 08/22/2024 1:30 PM EDT Office Visit [facility] MEDICINE [address] [place] [address] Iain Bellamy MD [address] [place] [address] documented as of this encounter Visit Diagnoses Diagnosis COVID-19 documented in this encounter Additional Health Concerns Assessment Noted Time PHQ-9 Depression Total Score: 1 04/21/19 23 10:56 AM EST documented as of this encounter Care Teams Offbearer Sewer Pipe Relationship Specialty Start Date End Date Iain Bellamy MD [address] [place] [address] PCP - General Internal Medicine 08/24/17 documented as of this encounter
--- OUTSIDE RECORDS SUMMARY | 2024-07-04 15:54 | XMS_ITS | Clinical Summary ---
Author Organization [employer] Address [address] [facility] [address] [place] [address] Care Team Providers Care Misdraw Hand Name Role Phone Iain Bellamy MD Primary Care Provide r Allergies No known active allergies Medications sacubitril-corina sartan (Entresto) 24-26 MG tablet Take 1 tablet by mouth every 12 (twelve) hours. Active pantoprazole (ProtoNix) 40 MG EC tablet TAKE 1 TABLET BY MOUTH ONCE DAILY 30 MINUTES BEFORE BREAKFAST 04/07/19 23 Active sucralfate (Carafate) 1 g tablet Take 1 g by mouth 2 times daily. 04/07/19 23 Active loratadine (Claritin) 10 MG tabletIndicati ons:COVID-19 TAKE 1 TABLET BY MOUTH ONCE DAILY NEEDED FOR ALLERGIES 90 tablet 1 07/29/19 24 Active terbinafine (LamISIL AT) 1 % creamIndicatio ns:Pityriasis in adult Apply topically 2 times daily. 42 g 08/19/19 24 Active pseudoephedrin e (Sudafed) 30 MG tablet Take 1 tablet (30 mg) by mouth every 4 (four) hours if needed for congestion for up to 10 days. 30 tablet 09/24/19 24 Active ibuprofen 400 MG tabletIndicati ons:Influenza A Take 1 tablet (400 mg) by mouth every 6 (six) hours if needed for moderate pain. 30 tablet 03/31/19 25 Active benzoyl peroxide (PanOxyl Foaming Wash) 10 % external washIndication s:Folliculitis Apply topically at bedtime. 227 g 04/14/19 25 026 Active clotrimazole (Lotrimin) 1 % creamIndicatio ns:Tinea versicolor Apply topically 2 times daily. 30 g 04/14/19 25 Active fluticasone (Flonase) 50 MCG/ACT nasal sprayIndicatio ns:Influenza A INSTILL 1-2 SPRAYS IN EACH NOSTRIL ONCE DAILY 48 g 06/23/19 25 Active fluticasone (Flonase) 50 MCG/ACT nasal sprayIndicatio ns:COVID-19 USE 1 SPRAY IN EACH NOSTRIL TWICE DAILY IN THE MORNING AND IN THE EVENING NEEDED 48 g 1 07/29/19 24 025 Discontinued(Du plicate order (will not trigger notification to Pharmacy)) fluticasone (Flonase) 50 MCG/ACT nasal sprayIndicatio ns:Influenza A Administer 1-2 sprays into each nostril Once per day. Shake gently. Before first use, prime pump. After use, clean tip and replace cap. 16 g 2 03/31/19 25 025 Discontinued Active Problems Problem Noted Date Diagnosed Date Nephrolithiasis 02/17/2024 Assessment & Plan (02/17/2024 11:20 AM EST): Seen in the ER 12/11/2023 CT/CT abdomen pelvis showed: Mild left-sided hydronephrosis and hydroureter suspected to be related to a 5 mm distal left ureteral calculus. Please correlate with symptomatology. A phlebolith can mimic this appearance. Patient was referred to Urology Dr. 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 08/19/2023 Assessment & Plan (08/19/2023 3:36 PM EDT): Symptomatology indicative of this Pt with c/o hypopigmented patches throuought his body described as itchy and associated with summer months and heat exposure Plan: Topical terbinafine cream BID, Selenium shampoo Derm referral Decreased visual acuity 08/19/2023 Assessment & Plan (08/19/2023 3:38 PM EDT): Pt unable to see his patrol judge at [facility] due to transportation issues Will refer to [facility] Routine physical examination 08/19/2023 Assessment & Plan (08/19/2023 3:38 PM EDT): Pt is underweight but managed to gain some weight since last visit Other than that exam is within normal limits Gastroesophageal reflux disease without esophagi tis 04/21/2022 Assessment & Plan (04/21/2022 4:59 PM EST): Under the care of Gastroenterology, last note on record 01/2022 Pt had a Mesenteric ultrasound IMPRESSION: Patent arterial flow within the mesenteric vessels without significant stenosis. Note is made of an acute angulation between the superior mesenteric artery and aorta measuring 24 degrees, normal is greater than 25 degrees. There is compression seen of the left renal vein. This could also be causing compression of the duodenum consistent with SMA syndrome GI recommended to Continue current treatment with PPI and sucralfate. Patient was encouraged to eat more often and very small meals. Patient will continue his protein shakes 2 to 3 times a day. Mesenteric ultrasound showed ? SMA CTA of abdomen ordered by GI to evaluate for SMA or celiac axis compression Confirmed it, pt is now awaiting Vascular surgeon consult Cardiomyopathy 03/19/2022 Assessment & Plan (02/17/2024 11:19 AM EST): Under the care of Dr Keen, last seen 01/13/2024 Previously a CBC and TSH were normal Pt denies any alcohol or drug use Pt evaluated by Scene [employer] Light[employer] Design Lecturer. initial ECHO showed an EF 20% with moderate MR and a most recent ECHO 12/2023 showed an EF 35-40% Previous stress ECHO was normal. [employer] Light[employer] Design Lecturer increased his carvedilol to 2 tabs of 12.5 mg po BID and discontinued Lasix Pt had a cardiac MRI to r/o infiltrative CMP that showed dilated LV with mild global hypokinesis LVEF 51%, no abnormal enhancement to suggest infiltrative cardiomyopathy, a loop monitor to assess PVC burden and arrythmia showed predominant sinus rhythm, average rate 60 bpm max 131. he was referred by spinning operator to [place] for evaluation of a genetic syndrome he was not thought to have Marfan's. He is on low dose Lisinopril. Will continue to follow with Cardiology who recommended a 6 month follow up. Assessment & Plan (08/19/2023 3:35 PM EDT): Under the care of Dr Keen, last seen 03/02/2023 Previously a CBC and TSH were normal Pt denies any alcohol or drug use Pt evaluated by Scene And Lighting Design Lecturer. initial ECHO showed an EF 20% with moderate MR and a most recent ECHO 08/2018 showed an EF 40-45% Previous stress ECHO was normal. Scene [employer] Light[employer] Design Lecturer increased his carvedilol to 2 tabs of 12.5 mg po BID and discontinued Lasix Pt had a cardiac MRI to r/o infiltrative CMP that showed dilated LV with mild global hypokinesis LVEF 51%, no abnormal enhancement to suggest infiltrative cardiomyopathy, a loop monitor to assess PVC burden and arrythmia showed predominant sinus rhythm, average rate 60 bpm max 131. he was referred by spinning operator to [place] for evaluation of a genetic syndrome he was not thought to have Marfan's. ECHO 07/2022 showed EF 45% - 50%. No change from previous' He is on low dose Lisinopril. Will continue to follow with Cardiology Assessment & Plan (04/21/2022 8:33 AM EST): Under the care of Dr Keen, last seen 02/2022 Previously he came in with c/o intermittent palpitations accompanied by lightheadedness, sob and chest discomfort Work up in the ER most recently was unremarkable, included EKG, Chest x-ray, Previously a CBC and TSH were normal Pt denies any alcohol or drug use Pt evaluated by Scene And Lighting Design Lecturer. initial ECHO showed an EF 20% with moderate MR and a most recent ECHO 08/2018 showed an EF 40-45% Previous stress ECHO was normal. [employer] Light[employer] Design Lecturer increased his carvedilol to 2 tabs of 12.5 mg po BID and discontinued Lasix Pt had a cardiac MRI to r/o infiltrative CMP that showed dilated LV with mild global hypokinesis LVEF 51%, no abnormal enhancement to suggest infiltrative cardiomyopathy, a loop monitor to assess PVC burden and arrythmia showed predominant sinus rhythm, average rate 60 bpm max 131. he was referred by spinning operator to [place] for evaluation of a genetic syndrome he was not thought to have Marfan's. ECHO 07/2020 showed EF 45% - 50%. No change from previous' He is on low dose Lisinopril. Will continue to follow with Cardiology Neck pain 09/18/2020 Assessment & Plan (04/21/2022 8:38 AM EST): Pt with previous c/o persistent c/o intermittent left sided neck pain, on and off for a couple of years, worse since July, described as intensity 5/10, worse when turning head towards the left, the pain radiates into his left shoulder , arm and hand, associated with intermittent numbness and shooting pains MRI Cervical spine 07/09/2020 Showed: Multilevel degenerative spondylosis of the cervical spine. A shallow right central protrusion superimposed upon a bulging disc at C5-C6 causes moderate canal stenosis and there is mild canal stenosis at C6-C7. No overt cord compression and no abnormal intramedullary signal changes. Asymmetric uncovertebral joint spurring and facet degenerative change at C5-C6 causes mild right neuroforaminal encroachment. Pt julio c went to [facility] and saw the Physiotherapist Underweight 09/18/2020 Assessment & Plan (02/17/2024 11:22 AM EST): Pt referred to Editorial Clerk, seen endocrine as well, las 12/28/2023 Assessment & Plan (04/21/2022 8:39 AM EST): Pt referred to Editorial Clerk Acne 01/31/2014 Encounters Date Type Department Care Team Description 06/22/2024 Refill [facility] [address] [place] [address] [place] Influenza A 05/19/2024 Population Health Risk Score [facility] Department [address] [id number] Provider, Population Health Generic 04/14/2024 2:30 PM EST Office Visit [facility] [address] [address] Gadiel Saha MD Tinea versicolor (Primary Dx); Folliculitis; 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 nicolas fied surface antigen) 12/09/2012 MMR 01/13/1999,03/10/1996 Measles 02/08/2012 Meningococcal MPSV4 01/26/2011 Td (adult), 5 Lf tetanus tox oid, preservative free, adsorbed 04/21/2022 Tdap 03/17/2007 Varicella 07/13/2013,01/26/2011 Social History Tobacco Use Types Packs/Day Years Used Date Smoking Tobacco: Never Passive Smoke Exposure: Never Smokeless Tobacco: Never Tobacco Cessation:Counseling Given: Not Answered Alcohol Use Standard Drinks/Week Comments Never 0 [...] Recorded Patient Health Questionnaire-2 Score 0 08/19/2023 Internet Access Answer Date Recorded Internet Access Q1 Yes 02/08/2024 Internet Access Q2 Not on file 02/08/2024 Sex and Gender Information Value Date Recorded Sex Assigned at Male 01/05/2022 10:22 AM EDT Legal Sex Male 10:22 AM EDT Gender Identity Male 01/05/2022 10:22 AM EDT Sexual Orientation Straight 01/05/2022 10 :22 AM EDT Last Filed Vital Signs Vital Sign Reading Time Taken Comments Blood Pressure 110/68 04/14/2024 2:34 PM EST Pulse 80 04/14/2024 2:34 PM EST Temperature 37.1 ??C (98.7 ??F) 04/14/2024 2:34 PM ES T Respiratory Rate 16 04/14/2024 2:34 PM EST Oxygen Saturation 97% 03/31/2024 1:54 PM EST Inhaled Oxygen Concentration - - Weight 49.4 kg (108 lb 12.8 oz) 04/14/2024 2:34 PM EST Height 185.4 cm (6' 1 ) 04/14/2024 2:34 PM EST Body Mass Index 14.35 04/14/2024 2:34 PM EST Plan of Treatment Upcoming Encounters Date Type Department Care Team (Late st Contact Info) Description 08/22/2024 1:30 PM EDT Office Visit [facility] [address] [place] [address] Iain Bellamy MD [address] [place] [id number] Health Maintenance Due Date Last Done Comments HIV Screening 1995 Family Planning (PISQ) 2010 Hepatitis C Screening 2013 COVID-19 Vaccine ( season) 2023 Influenza Vaccine (#1) 2023 , 03/29/2018, 01/31/2014, Additional history exists SDOH Screening 06/06/2024 06/07/2023 Depression Screening 08/18/2024 08/19/2023, 08/19/19 Alcohol/Substance Use Screening 02/16/2025 02/17/2024 Tobacco Screening 03/31/2025 03/31/2024 DTaP/Tdap/Td Vaccines (8 - Td or Tdap) 04/21/2032 04/21/2022, 03/17/2007, 01/13/1999, Additional history exists Zoster Vaccines (1 of 2) 2045 RSV Patients and Patients Aged 60 years or older (1 - 1-dose 75+ series) 2070 Hepatitis B Vaccines Completed 1995, 1995, 1995 HIB Vaccines Completed 09/04/1996, 08/1995, 1995, Additional history exists IPV Vaccines Completed 01/13/1999, 08/1995, 1995, Additional history exists Meningococcal Vaccine Aged Out 01/26/2011 No ashley lemuel eligible based on patient's age to complete this topic HPV Vaccines Completed 09/29/2012, 05/2011, 01/26/2011 Hepatitis A Vaccines Completed 09/29/2012, 01/27/20 11 Pneumococcal Vaccine: Pediatrics (0 to 5 Years) and At-Risk Patients (6 to 49) Years) Aged Out No longer eligible based on patient's age to complete this topic RSV under 20 months Aged Out No longe r eligible based on patient's age to complete this topic Rotavirus Vaccines Aged Out No longer eligible based on patient's age to complete this topic Insurance HSN FULL Care Teams Misdraw Hand Relationship Specialty Start Date End Date Iain Bellamy MD [address] [place] [address] PCP - General Internal Medicine 08/24/17
== END 2024-07-04 15:07 | disposition home or self-care (01) ==
LOC: HO.ENCR 13:46
PROVIDERS: PCP Internal Medicine; Visit Provider Dietitian, Registered
DX: R63.6 Underweight (principal)

== ENCOUNTER → 2024-07-04 13:46 | Outpatient (BNVA) | payer MEDICAID, SELFPAY | PROVIDERS: PCP Internal Medicine; Visit Provider Dietitian, Registered | DX: R63.6 Underweight (principal); Z68.1 Body mass index [BMI] 19.9 or less, adult | CPT/HCPCS: 97803 ==

== ENCOUNTER 2024-08-23 12:42 | Outpatient (REF) | payer MEDICAID, SELFPAY ==
--- OUTSIDE RECORDS SUMMARY | 2024-08-22 13:30 | XMS_ITS | Encounter Summary ---
Author Organization [employer] Address [address] [place] [id number] Care Team Providers Care Microcomputer Support Specialist Name Role Phone Iain Bellamy MD Primary Care Provide r Reason for Referral * Consultation (Routine) - Authorized Specialty Diagnoses / Procedures Referred By Stephenie ayoub Referred To Contact Dermatology Diagnoses Fingernail abnormalities Iain Bellamy MD [address] [place] [address] Phone: tel: fax: Familia Isaacs MD [address] [place] [id number] Phone: tel: fax: Referral ID Status Reason Start Date Expiration Date Visits Requested Visits Authorized [id number] Authorized Specialty Services Required 08/22/2024 08/22/2025 12 12 Reason for Visit * Reason Comments Annual Exam Pt would like to get referred by a different Refrigeration System Installer, also helped pt r/s his CEE with [facility] appt was made for 11/03/2024 @1:45PM. Encounter Details Date Type Department Care Team (Latest Contact Info) Description 08/22/2024 1:30 PM EDT Office Visit [facility] [address] [place] [address] Iain Bellamy MD [address] [place], [place] [phone] Nephrolithiasis (Primary Dx); Underweight; Cardiomyopathy, unspecified type (CMS/HCC); Fingernail abnormalities; Routine physical examination; Dietary counseling Social History Tobacco Use Types Packs/Day Years Used Date Smoking Tobacco: Never Passive Smoke Exposure: Never Smokeless Tobacco: Never Alcohol Use Standard Drinks/Week Comments Never 0 (1 standard drink = 0.6 oz pur e alcohol) Depression Answer Date Recorded Patient Health Questionnaire-9 Score 0 08/22/2024 Patient Health Questionnaire-9 Score 0 08/22/2024 Last PHQ-9: Questionnaire Data Not on file 0 08/22/2024 Housing Stability Answer Date Recorded What is your housing situation today? I have nahedjennifer tan 08/15/[address] you li ve. Do you have problems with any of the following? None of the above 08/15/2024 Food Insecurity Answer Date Recorded Within the past 12 months, y ou worried that your food would run out before you got money to buy more: Never True 08/15/2024 Within the past 12 months,th e food you bought just didn't last and you didn't have enough money to get more: Never True 12/2024 Transportation Answer Date Recorded In the past 12 months, has l ack of transportation kept you from medical appts, meetings, work or from getting things needed for daily living? No 08/15/2024 Utilities Answer Date Recorded In the past 12 months, has t he electric, gas, oil or water company threatened to shut off services in your home? No 08/15/2024 Depression Answer Date Recorded Patient Health Questionnaire-2 Score 0 08/22/2024 Internet Access Answer Date Recorded Internet Access Q1 Yes 02/08/2024 Internet Access Q2 Not on file 02/08/2024 Sex and Gender Information Value Date Recorded Sex Assigned at Male 01/05/2022 10:22 AM EDT Legal Sex Male 10:22 AM EDT Gender Identity Male 01/05/2022 10:22 AM EDT Sexual Orientation Straight 01/05/2022 10 :22 AM EDT documented as of this encounter Last Filed Vital Signs Vital Sign Reading Time Taken Comments Blood Pressure 122/84 08/22/2024 1:37 PM EDT Pulse 109 08/22/2024 1:37 PM EDT Temperature 36.4 C (97.5 F) 08/22/2024 1:37 PM EDT Respiratory Rate 20 08/22/2024 1:37 PM EDT Oxygen Saturation 100% 08/22/2024 1:37 PM EDT Inhaled Oxygen Concentration - - Weight 51.3 kg (113 lb 3.2 oz) 08/22/2024 1:37 P M EDT Height 185.4 cm (6' 1 ) 08/22/2024 1:37 PM EDT Body Mass Index 14.93 08/22/2024 1:37 PM EDT documented in this encounter Functional Status * Over the past 2 weeks, how often have you been bothered by any of the following problems? Question Answer Date of Assessment Author Patient Health Questionnaire-2 Score 0 08/06 1:35 PM EDT Ginna Galloway MA * Little interest or pleasure in doing things Answer Date of Assessment Author Not at all 08/22/2024 1:35 PM EDT Colin Galloway MA * Feeling down, depressed, or hopeless Answer Date of Assessment Author Not at all 08/22/2024 1:35 PM EDT Colin Galloway MA * Trouble falling or staying asleep, or sleeping too much Answer Date of Assessment Author Not at all 08/22/2024 1:35 PM EDT Colin Galloway MA * Feeling tired or having little energy Answer Date of Assessment Author Not at all 08/22/2024 1:35 PM EDT Colin Galloway MA * Poor appetite or overeating Answer Date of Assessment Author Not at all 08/22/2024 1:35 PM EDT Colin Galloway MA * Feeling bad about yourself - or that you are a failure or have let yourself or your family down Answer Date of Assessment Author Not at all 08/22/2024 1:35 PM EDT Colin Galloway MA * Trouble concentrating on things, such as reading the newspaper or watching television Answer Date of Assessment Author Not at all 08/22/2024 1:35 PM EDT Colin Galloway MA * Moving or speaking so slowly that other people could have noticed? Or the opposite - being so fidgety or restless that you have been moving around a lot more than usual. Answer Date of Assessment Author Not at all 08/22/2024 1:35 PM EDT Colin Galloway MA * Thoughts that you would be better off or hurting yourself in some way Answer Date of Assessment Author Not at all 08/22/2024 1:35 PM EDT Colin Galloway MA * Patient Health Questionnaire-9 Score Answer Date of Assessment Author 0 08/22/2024 1:35 PM EDT Colin Galloway MA * Over the last 2 weeks, how often have you been bothered by any of the following problems? Question Answer Date of Assessment Author Feeling nervous, anxious, or on edge 0 08/06 1:35 PM EDT Ginna Galloway MA Not being able to stop or co ntrol worrying 0 08/22/2024 1:35 PM EDT Ginna Galloway MA Worrying too much about diff erent things 0 08/22/2024 1:35 PM EDT Ginna Galloway MA Trouble relaxing 0 08/22/2024 1:35 PM EDT Ginna Keller MA Being so restless that it is hard to sit still 0 08/22/2024 1:35 PM EDT Ginna Galloway MA Becoming easily annoyed or irritable 0 08/06 1:35 PM EDT Ginna Galloway MA Feeling afraid as if somethi ng awful might happen 0 08/22/2024 1:35 PM EDT Ginna Galloway MA ROXANNA-7 Total Score 0 08/22/2024 1:35 PM EDT Ginna Galloway MA documented as of this encounter Progress Notes * Iain Kidd MD - 08/22/2024 1:30 PM EDT Images from the original note were not included. SUBJECTIVE Henok Cordero is a 29 y.o. male who presents for Annual Exam (Pt would like to get referred by a different Refrigeration System Installer, also helped pt r/s his CEE with [facility] appt was made for 11/03/2024 @1:45PM.). Pt here for a follow up, requesting to see a different fibrous plasterer for concerns of an issue with his fingernails Review of Systems Constitutional: Negative for appetite change, fatigue and fever. HENT: Negative for ear pain, hearing loss and sore throat. Eyes: Negative for pain and visual disturbance. Respiratory: Negative for cough and shortness of breath. Cardiovascular: Negative for chest pain and palpitations. Gastrointestinal: Negative for abdominal pain, nausea and vomiting. Genitourinary: Negative for dysuria. Skin: Negative for rash. Neurological: Negative for dizziness and headaches. Psychiatric/Behavioral: Negative for sleep disturbance. Allergies[1] OBJECTIVE Vitals: 08/22/24 1337 BP: 122/84 BP Location: Left arm Patient Position: Sitting BP Cuff Size: Adult Pulse: 109 Resp: 20 Temp: 97.5 ??F (36.4 ??C) TempSrc: Temporal SpO2: 100% Weight: 113 lb 3.2 oz (51.3 kg) Height: 6' 1 (1.854 m) Physical Exam Vitals reviewed. Constitutional: General: He is not in acute distress. Appearance: Normal appearance. HENT: Head: Normocephalic and atraumatic. Right Ear: Tympanic membrane, ear canal and external ear normal. Left Ear: Tympanic membrane, ear canal and external ear normal. Nose: Nose normal. Mouth/Throat: Mouth: Mucous membranes are moist. Pharynx: Oropharynx is clear. Eyes: Extraocular Movements: Extraocular movements intact. Conjunctiva/sclera: Conjunctivae normal. Pupils: Pupils are equal, round, and reactive to light. Cardiovascular: Rate and Rhythm: Normal rate and regular rhythm. Pulses: Normal pulses. Heart sounds: Normal heart sounds. Pulmonary: Effort: Pulmonary effort is normal. Breath sounds: Normal breath sounds. Abdominal: General: Bowel sounds are normal. Palpations: Abdomen is soft. Genitourinary: Penis: Normal. Testes: Normal. Musculoskeletal: General: Normal range of motion. Cervical back: Normal range of motion and neck supple. Skin: General: Skin is warm. Capillary Refill: Capillary refill takes less than 2 seconds. Neurological: General: No focal deficit present. Mental Status: He is alert and oriented to person, place, and time. Mental status is at baseline. Psychiatric: Mood and Affect: Mood normal. Assessment/Plan Problem List Items Addressed This Visit Nephrolithiasis - Primary Here for a follow up CT abdomen pelvis 12/11/2023 showed: Mild left-sided hydronephrosis and hydroureter suspected to be related to a 5 mm distal left ureteral calculus. Under the care of Urology Dr. Pratt, last seen 03/09/2024 recommended a 6 month follow up with repeatUS Underweight Pt referred to [facility], seen endocrine as well, las 03/23/2024 Weight is improving Cardiomyopathy (CMS/HCC) Under the care of Dr Keen, last seen 01/13/2024 Previously a CBC and TSH were normal Pt denies any alcohol or drug use Pt evaluated by [facility]. initial ECHO showed an EF 20% with moderate MR and a most recent ECHO12/2023 showed an EF 35-40% Previous stress ECHO was normal. [facility] increased his carvedilol to 2 tabs of 12.5 mg po BID and discontinued Lasix Pt had a cardiac MRI to r/o infiltrative CMP that showed dilated LV with mild global hypokinesis LVEF 51%, no abnormal enhancement to suggest infiltrative cardiomyopathy, a loop monitor to assess PVCburden and arrythmia showed predominant sinus rhythm, average rate 60 bpm max 131. he was referred by career services assistant to [place] for evaluation of a genetic syndrome he was not thought to have Marfan's. He is on low dose Lisinopril. Will continue to follow with Cardiology who recommended a 6 month follow up. Last ECHO 06/20/2024 showed mild global hypokinesis, EF 40-45% Relevant Orders Comprehensive Metabolic Panel TSH with Reflex to Free T4 Fingernail abnormalities Patient interested in a second opinion by dermatology, complaining of inability to cut his fingernails due to an overgrowth of tissue under the nail which makes it painful to cut the nails Plan: dermatology referral to Dr Isaacs Relevant Orders Referral to Dermatology Routine physical examination Exam is within normal limits Relevant Orders Comprehensive Metabolic Panel TSH with Reflex to Free T4 Other Visit Diagnoses Dietary counseling Future Appointments Date Time Provider Department Center 11/03/2024 1:45 PM Demi Leonard, OD [facility] [1] No Known Allergies documented in this encounter Miscellaneous Notes * Assessment & Plan Note - Iain Kidd MD - 08/22/2024 2:00 PM EDT Associated Problem(s): Routine physical examination Exam is within normal limits * Assessment & Plan Note - Iain Kidd MD - 08/22/2024 1:59 PM EDT Associated Problem(s): Fingernail abnormalities Patient interested in a second opinion by dermatology, complaining of inability to cut his fingernails due to an overgrowth of tissue under the nail which makes it painful to cut the nails Plan: dermatology referral to Dr Isaacs * Assessment & Plan Note - Iain Kidd MD - 08/22/2024 1:47 PM EDT Associated Problem(s): Cardiomyopathy (CMS/HCC) Under the care of Dr Keen, last seen 01/13/2024 Previously a CBC and TSH were normal Pt denies any alcohol or drug use Pt evaluated by [facility]. initial ECHO showed an EF 20% with moderate MR and a most recent ECHO12/2023 showed an EF 35-40% Previous stress ECHO was normal. [facility] increased his carvedilol to 2 tabs of 12.5 mg po BID and discontinued Lasix Pt had a cardiac MRI to r/o infiltrative CMP that showed dilated LV with mild global hypokinesis LVEF 51%, no abnormal enhancement to suggest infiltrative cardiomyopathy, a loop monitor to assess PVCburden and arrythmia showed predominant sinus rhythm, average rate 60 bpm max 131. he was referred by career services assistant to [place] for evaluation of a genetic syndrome he was not thought to have Marfan's. He is on low dose Lisinopril. Will continue to follow with Cardiology who recommended a 6 month follow up. Last ECHO 06/20/2024 showed mild global hypokinesis, EF 40-45% * Assessment & Plan Note - Iain Kidd MD - 08/22/2024 1:45 PM EDT Associated Problem(s): Underweight Images from the original note were not included. Pt referred to [facility] [employer], seen endocrine as well, las 03/23/2024 Weight is improving * Assessment & Plan Note - Iain Kidd MD - 08/22/2024 1:44 PM EDT Associated Problem(s): Nephrolithiasis Here for a follow up CT abdomen pelvis 12/11/2023 showed: Mild left-sided hydronephrosis and hydroureter suspected to be related to a 5 mm distal left ureteral calculus. Under the care of Urology Dr. Pratt, last seen 03/09/2024 recommended a 6 month follow up with repeatUS documented in this encounter Plan of Treatment Upcoming Encounters Date Type Department Care Team (Late st Contact Info) Description 11/03/2024 1:45 PM EDT Office Visit [facility] [address] [place], [place] [id number] TarkaDemi, OD [address] [place] [address] Scheduled Orders Name Type Priority Associated Diagnoses Orde r Schedule Comprehensive Metabolic Panel Lab Routine Cardiomyopathy, unspecified type (CMS/HCC) Routine physical examination Ordered: 08/22/2024 TSH with Reflex to Free T4 Lab Routine Cardiomyopathy, unspecified type (CMS/HCC) Routine physical examination Ordered: 08/22/2024 Scheduled Referrals Name Type Priority Associated Diagnoses Orde r Schedule Referral to Dermatology Outpatient Referral Routine Fingernail abnormalities Expected: 08/22/2024 (Approximate), Expires: 08/22/2025 documented as of this encounter Visit Diagnoses Diagnosis Nephrolithiasis- Primary Calculus of kidney Underweight Cardiomyopathy, unspecified type (CMS/HCC) Fingernail abnormalities Other specified disease of nail Routine physical examination Routine general medical examination at a health care facility Dietary counseling Dietary surveillance and counseling documented in this encounter Additional Health Concerns Assessment Noted Time PHQ-9 Depression Total Score: 0 08/23/19 25 1:35 PM EDT documented as of this encounter Care Teams Microcomputer Support Specialist Relationship Specialty Start Date End Date Iain Bellamy MD [address] [place] [address] PCP - General Internal Medicine 08/24/17 documented as of this encounter
--- NOTE | ~2024-08-23 | US_ITS ---
CLINICAL HISTORY: N20.0 - Calculus of kidney US of kidneys Comparison: None Findings: Right kidney is normal in size, echogenicity and morphology, 9 cm in length. No calculus or hydronephrosis. 5 mm simple cyst at the midpole. Left kidney is normal in size, echogenicity and morphology, 9 cm in length. No mass or hydronephrosis. Multiple tiny hyperechoic foci without shadowing noted. Limited color Doppler demonstrates unremarkable bilateral blood flow. Impression: 1. Tiny nonshadowing echogenic foci of the left kidney, could be artifactual or tiny calculi, no obstruction. This document has been electronically signed by: Brenda Rider MD on 08/23/2024 16:08:08
== END 2024-08-23 12:43 | disposition home or self-care (01) ==
LOC: HO.US 12:42
PROVIDERS: PCP Internal Medicine; Visit Provider Nurse Practitioner Family
DX: N20.0 Calculus of kidney (principal)
CPT/HCPCS: 76775

== ENCOUNTER → 2024-08-23 12:44 | Outpatient (BNV) | payer MEDICAID, SELFPAY | PROVIDERS: PCP Internal Medicine; Visit Provider Radiology Diagnostic Radiology | DX: N20.0 Calculus of kidney (principal) | CPT/HCPCS: 76775 ==

== ENCOUNTER 2024-09-29 11:41 | Outpatient (AMB) | payer MEDICAID, SELFPAY ==
--- NOTE | 2024-09-29 11:44 | A.OFFVIS_ITS ---
Vital Signs 09/29/24 11:47 Height 6 ft Weight 110 lb 3.698 oz BMI 14.9 BP 101/62 Blood Pressure Location Lt brachial Position Sitting Pulse 75 Intake Visit Reasons: F/U Epigastric pain Intake Note: Henok presents in the office as a follow up for epigastric pains. CC: insurance is not covering the drink - states he buys it himself. Supervisor [employer] Required: No Allergies chlorhexidine (CHLORHEXIDINE) Allergy (Intermediate, Verified 09/29/24 11:47) HIVES HPI HPI F/U Epigastric pain: Details: LAST VISIT Severely underweight adult GERD (gastroesophageal reflux disease) Epigastric abdominal pain SMAS (superior mesenteric artery syndrome) Plan Patient will continue pantoprazole in the morning and sucralfate at night time. Patient will continue to gain weight. Encouraged to try protein shakes, use [place] breakfast in milk and try to eat high-calorie food as much as possible . SMAS was evaluated by vascular surgeon. Hopefully if patient will gain weight this might resolve. He has appointment with him in May. Patient has an appointment with dietitian on April 08. Currently patient does not have any GI concerning symptoms. Patient will return in the office in 6 months, sooner on as needed basis. Patient is agreeable to this plan and verbalizes understanding of instructions. He was given the opportunity to ask questions and all questions answered. ? Thank you for allowing me to participate in his care Refilled pantoprazole 20 mg PO DAILY 90 tabs 2RF sucralfate 1 g PO BEDTIME 90 tabs 2RF K21.9, K29.81 TODAY'S VISIT: Patient is here today for follow-up. Last visit with vascular surgeon was in February. Patient was discharged as he was doing well. Today patient reports that he has been doing fairly well although few days ago he did not feel like eating much. Patient reports still will have a epigastric pain if he presses on the area or if he lifts heavy equipment. Patient is not gaining any weight. He reports that he is eating, however due to his off schedule he sometimes misses a meal. Patient states that he does not sleep at night sometimes. Patient is drinking ensure. Has appointment with solid center winder next month. Patient sees his trash collector supervisor on regular basis. Patient denies any nausea or vomiting. Denies any acid reflux. Currently he is not taking any PPIs. He is only taking Entresto PFSH Medical History History of anxiety Difficulty swallowing CHF (congestive heart failure) Mitral valve disease Palpitations Cardiomyopathy Spinal pain H. pylori infection Social History Alcohol intake: never Patient Tobacco Use Status: Never used Tobacco Current occupational status: disabled Current occupation: right handed Review of Systems Const Denies weight gain and Denies weight loss ENT Reports no additional complaints, Denies dysphagia and Denies odynophagia Card Reports no additional complaints Resp Reports no additional complaints GI Denies abdominal pain, Denies belching, Denies melena, Denies bloating, Denies change in bowel habits, Denies dysphagia, Denies excessive flatus, Denies dyspepsia, Denies heartburn, Denies diarrhea, Denies loose stools, Denies nausea, Denies odynophagia and Denies vomiting Reports no additional complaints Musc Reports no additional complaints Neuro Reports no additional complaints Psych Reports no additional complaints Endo Reports no additional complaints Physical Exam Vital Signs: Last Vital Signs Pulse 75 09/29/24 11:47 BP 101/62 09/29/24 11:47 BMI result Body Mass Index 14.9 Const General: no acute distress Nutritional Appearance: thin and underweight Orientation/consciousness: patient oriented x3 Resp Effort & Inspection: normal respiratory effort, able to speak in complete sentences, no tracheal deviation and symmetric chest movement Auscultation: clear to auscultation bilaterally Cardio Rate: regular rate GI Inspection: Yes normal to inspection and No distended Palpation (GI): Soft to palpation, not firm, nontender and No hepatosplenomegaly present Auscultation: normal bowel sounds General: Yes no CVA tenderness Back/Spine/Pelvis Back: no CVA tenderness Skin General skin exam: elasticity normal, turgor normal and dry skin Neuro General: patient oriented x3 Psych Appearance: grossly normal Mental Status: mental status grossly normal Assessment & Plan Assessment & Plan (1) SMAS (superior mesenteric artery syndrome): Code(s): K55.1 - Chronic vascular disorders of intestine Category: Medical (2) Severely underweight adult: Code(s): R63.6 - Underweight Category: Medical (3) Epigastric pain: Code(s): R10.13 - Epigastric pain Plan Patient will be sent for upper endoscopy. He is off PPIs and H2 blockers and currently does not experience acid reflux, however he does reports to have epigastric pain. Most likely the pain is related to SMAS. However patient reports that he has been eating pizza and fast food as well. Although patient has no other symptoms except for epigastric pain. Occasionally the pain feels like burning. I will see patient after the procedure, sooner on as needed basis. Call Dr. Keen's office for clearance. Patient denies any cardiac or respiratory symptoms. Had no issues with anesthesia. Patient is agreeable to current plan of care and verbalizes understanding of instructions. He was given the opportunity to ask questions and all questions answered. Thank you for allowing me to participate in his care Coding Level of Care Code Est Pt Level 4 (99239) Complex EM visit Add On G2211 Diagnoses SMAS (superior mesenteric artery syndrome) K55.1 Severely underweight adult R63.6 Epigastric pain R10.13 Time Spent (min) 35 Comment 25 minutes spent with patient and additional 10 minutes spent reviewing his records
--- OUTSIDE RECORDS SUMMARY | 2024-09-29 11:44 | XMS_ITS | Encounter Summary ---
Demographics Address [address] [place] [address] Work Phone Home Phone Email Address Preferred Language en Marital Status Single Quaker Affiliation Unknown Race Other Race Ethnic Group Unknown Author Organization [facility] [employer] Address [address] [place] [address] Care Team Providers Care Brim Molder Name Role Phone Iain Bellamy MD Primary Care Provide r Reason for Visit * Reason Comments Med Refill Encounter Details Date Type Department Care Team ([facility] Contact Info) Description 02/02/2024 Refill [facility] [address] [place] [address] Iain Bellamy MD [address] [place] [address] COVID-19 Social History Tobacco Use Types Packs/Day [...] 11/03/2024 1:45 PM EDT Office Visit [facility] [address] [place] [address] Demi Leonard, OD [address] [place] [address] documented as of this encounter Visit Diagnoses Diagnosis COVID-19 documented in this encounter Additional Health Concerns Assessment Noted Time PHQ-9 Depression Total Score: 3 08/19/19 24 2:33 PM EDT documented as of this encounter Care Teams Brim Molder Relationship Specialty Start Date End Date Iain Bellamy MD [address] [place] [id number] PCP - General Internal Medicine 08/24/17 documented as of this encounter
[2024-09-29 11:47] VITALS: BP 101/62; PULSE 75; BMI 14.9
== END 2024-09-29 12:01 | disposition home or self-care (01) ==
LOC: HO.HGI 11:42
PROVIDERS: PCP Internal Medicine; Visit Provider Nurse Practitioner Family
DX: K55.1 Chronic vascular disorders of intestine (principal); R63.6 Underweight; R10.13 Epigastric pain
CPT/HCPCS: 99214

== ENCOUNTER → 2024-09-29 11:41 | Outpatient (BNVA) | payer MEDICAID, SELFPAY | PROVIDERS: PCP Internal Medicine; Visit Provider Nurse Practitioner Family | DX: K55.1 Chronic vascular disorders of intestine (principal); R10.13 Epigastric pain; R63.6 Underweight; Z68.1 Body mass index [BMI] 19.9 or less, adult; Z79.899 Other long term (current) drug therapy | CPT/HCPCS: 99212 ==

== ENCOUNTER 2024-10-02 15:20 | Outpatient (AMB) | payer MEDICAID, SELFPAY ==
--- NOTE | 2024-10-02 15:35 | A.OFFVIS_ITS ---
Intake Visit Reasons: 6m/US(set) Intake Note: Patient is present for 6M/US Urology Medication:NONE Antibiotic Allergy:NONE Blood Thinner:NONE TODAY'S PVR:0ML'S Ict Development Manager Required: No Allergies chlorhexidine (CHLORHEXIDINE) Allergy (Intermediate, Verified 10/02/24 20:48) HIVES Medication List - Last Reconciled 10/02/24 by KORY Borrero food supplemt, lactose-reduced (Ensure High Protein oral liquid) One bottle daily sacubitril-valsartan 24-26 mg (Entresto) 1 tab PO BID HPI Comments Details: Henok is a pleasant 29-year-old male patient of . He has a past medical history of anxiety, congestive heart failure, mitral valve disease, cardiomyopathy, H pylori, and nephrolithiasis. He presents to the office today for follow-up of his nephrolithiasis. In discussion with the patient today he does report noting intermittent flank pain approximately 3 months ago however feels this has since subsided. He reports no bothersome urinary issues or concerns at this time. Recent renal imaging results were reviewed with the patient today 08/30 bilateral kidneys are normal in size and echogenicity. No masses or hydronephrosis noted bilaterally. 5 mm simple cyst at the mid pole of the right kidney. Tiny nonshadowing echogenic foci of the left kidney, could be artifactual or a tiny calculi. No obstruction noted. Per radiology report. He discusses he attempts to continue to drink plenty of water daily and adding 1 oz of lemon juice to water. He also reports he is attempting to increase his caloric intake due to his ongoing issues with being underweight. He denies any bothersome urinary issues or concerns. He denies urinary urgency, urinary frequency, incontinence, nocturia, hematuria, dysuria, foul smelling urine, changes to urinary stream, flank pain, fever, and or chills. He is happy with his current voiding parameters. We discussed potential causes of nephrolithiasis as well as further workup. He otherwise offers no other issues or concerns at this time. [facility] Medical History History of anxiety Difficulty swallowing CHF (congestive heart failure) Mitral valve disease Palpitations Cardiomyopathy Spinal pain H. pylori infection Social History Alcohol intake: never Patient Tobacco Use Status: Never used Tobacco Current occupational status: disabled Current occupation: right handed Review of Systems Const All systems reviewed & are unremarkable except as noted in HPI and below Physical Exam Const General: cooperative, comfortable, no acute distress, well developed, alert and awake Nutritional Appearance: thin Orientation/consciousness: patient oriented x3 Limitations: no limitations HEENT Head: Yes normal to inspection, Yes normocephalic and Yes atraumatic Ears: hearing grossly normal bilaterally Eyes General: appearance normal, both eyes and all related structures Neck Neck: Yes normal visual inspection and Yes trachea midline Chest Chest palpation & inspection: normal inspection of the chest Resp Effort & Inspection: normal respiratory effort and able to speak in complete sentences Cardio Rate: regular rate GI Inspection: Yes normal to inspection General: Yes no CVA tenderness Back/Spine/Pelvis Back: no CVA tenderness Skin General skin exam: no rashes or lesions noted Neuro General: patient oriented x3 Extrem General: Yes normal to inspection Psych Appearance: grossly normal and well kempt Mental Status: mental status grossly normal Speech and movement: Normal speech and movement present and Clear speech present Affect: normal affect Attitude: cooperative Thought process: Normal thought process present Thought content: Normal thought content present Insight: Fair insight present (Psych) Judgement: Fair judgement present (Psych) Office Procedures Post Void Residual Post Residual Void Post Void Residual (PVR): 0 00259-[id number] Void Residual by ultrasound Results Reviewed Results Reviewed: Date of Service: 08/23/24 Procedure(s): US renal BI Findings: Right kidney is normal in size, echogenicity and morphology, 9 cm in length. No calculus or hydronephrosis. 5 mm simple cyst at the midpole. Left kidney is normal in size, echogenicity and morphology, 9 cm in length. No mass or hydronephrosis. Multiple tiny hyperechoic foci without shadowing noted. Limited color Doppler demonstrates unremarkable bilateral blood flow. Impression: 1. Tiny nonshadowing echogenic foci of the left kidney, could be artifactual or tiny calculi, no obstruction. Assessment & Plan Assessment & Plan (1) Calculus of kidney: Code(s): N20.0 - Calculus of kidney Category: Medical Plan Unable to obtain urine for urinalysis as patient unable to void however PVR 0 mL Recent renal ultrasound results reviewed with the patient today; as noted above. Patient currently denies any bothersome urinary issues or concerns. He reports be happy with current voiding parameters. We discussed potential causes of nephrolithiasis. Will continue with surveillance monitoring at this time. Discussed, educated, and stressed the importance of adequate hydration relation to nephrolithiasis as well as overall health and well-being. Will obtain renal ultrasound in 1 year Follow-up in 1 year with renal ultrasound to be completed prior; or sooner with any issues, concerns, and or questions. Orders: Orders US renal BI 1 Year N20.0 - Calculus of kidney Patient Instructions: The patient had an opportunity to ask questions regarding the treatment plan. All questions were answered. Physical exam, labs, and imaging were discussed and reviewed in detail. As well as risks, benefits, and discussion of treatment choices. No major barriers to understanding were identified. The patient expressed understanding and agreement with the above treatment plan. The patient was made aware they should contact our office by phone for worsening of their current condition, the appearance of new symptoms, or with any questions or concerns. Compliance is encouraged with any medications and follow up testing that is ordered. It is a privilege to be allowed the opportunity to participate in? your urological care.? Again, if you have any questions or concerns If you have any questions or concerns please do not hesitate to contact me. The office is [phone]. This note is constructed using voice recognition software. While every effort has been made to ensure accuracy electrical designer errors may have been included. Yours sincerely, KORY Borrero Coding Level of Care Code Est Pt Level 3 (05021) Diagnoses Calculus of kidney N20.0 CPT Codes Post Residual Void - PVR CPT Code: 45642-Sfsl Void Residual by ultrasound ([id number])
--- OUTSIDE RECORDS SUMMARY | 2024-10-02 15:41 | XMS_ITS | Encounter Summary ---
Demographics Address [address] [place] [address] Work Phone Home Phone Email Address Preferred Language en Marital Status Single Druze Affiliation Unknown Race Other Race Ethnic Group Unknown Author Organization [employer] Address [address] [place] [address] Care Team Providers Care Hospice Fellow Name Role Phone Iain Bellamy MD Primary Care Provide r Reason for Visit * Reason Comments Med Refill Encounter Details Date Type Department Care Team ([facility] Contact Info) Description 02/02/2024 Refill [facility] [address] [place] [address] Iain Bellamy MD [address] [place] [address] COVID-19 Social History Tobacco Use Types Packs/Day [...] Description 11/03/2024 1:45 PM EDT Office Visit [facility] [address] [place] [address] Demi Leonard, OD [address] [place] [address] documented as of this encounter Visit Diagnoses Diagnosis COVID-19 documented in this encounter Additional Health Concerns Assessment Noted Time PHQ-9 Depression Total Score: 3 08/19/19 24 2:33 PM EDT documented as of this encounter Care Teams Hospice Fellow Relationship Specialty Start Date End Date Iain Bellamy MD [address] [place] [id number] PCP - General Internal Medicine 08/24/17 documented as of this encounter
== END 2024-10-02 16:10 | disposition home or self-care (01) ==
LOC: HO.HUSH 15:20
PROVIDERS: PCP Internal Medicine; Visit Provider Nurse Practitioner Family
DX: N20.0 Calculus of kidney (principal)
CPT/HCPCS: 99213

== ENCOUNTER → 2024-10-02 15:20 | Outpatient (BNVA) | payer MEDICAID, SELFPAY | PROVIDERS: PCP Internal Medicine; Visit Provider Nurse Practitioner Family | DX: N20.0 Calculus of kidney (principal) | CPT/HCPCS: 51798; 99212 ==

== ENCOUNTER 2024-12-26 10:18 | Outpatient (AMB) | payer MEDICAID, SELFPAY ==
--- NOTE | 2024-12-26 10:26 | A.OFFVIS_ITS ---
Vital Signs 12/26/24 10:27 Height 6 ft Weight 106 lb BMI 14.4 BP 102/70 Blood Pressure Location Rt brachial Position Sitting Pulse 88 Pulse Source Pulse Oximeter Pulse Oximetry (%) 97 Oxygen Delivery Method Room Air Intake Visit Reasons: s/p EGD pierre Intake Note: ESTABLISHED PATIENT for epigastric pain mgmt. Chief Complaint; C.O. continued, unintentional weight loss despite best efforts as of late. Pt states he has not been able to get the recommended protein shakes as he cannot afford the O.O.P costs. Insurance will not cover them. Pt states his appetite lately has improved but he has not been able to maintain or gain any weight. Dredge Pump Operator Required: No Accompanied by: Self / Same As Patient Allergies chlorhexidine (CHLORHEXIDINE) Allergy (Intermediate, Verified 12/26/24 10:26) HIVES HPI HPI s/p EGD pierre: Details: LAST VISIT: SMAS (superior mesenteric artery syndrome) Severely underweight adult Epigastric pain Plan Patient will be sent for upper endoscopy. He is off PPIs and H2 blockers and currently does not experience acid reflux, however he does reports to have epigastric pain. Most likely the pain is related to SMAS. However patient reports that he has been eating pizza and fast food as well. Although patient has no other symptoms except for epigastric pain. Occasionally the pain feels like burning. I will see patient after the procedure, sooner on as needed basis. Call Dr. Keen's office for clearance. Patient denies any cardiac or respiratory symptoms. Had no issues with anesthesia. Patient is agreeable to current plan of care and verbalizes understanding of instructions. He was given the opportunity to ask questions and all questions answered. TODAY'S VISIT: Patient is here today for follow-up. Patient was unable to go for endoscopy as he was not cleared by his ballistician. Patient was trying to make an appointment for follow-up and was unable to see them. Patient denies any epigastric pain or discomfort. Reports that he is no longer taking PPI or H2 jason. Patient reports that he is doing fine and has no trouble with a bdominal pain, postprandial epigastric pain, acid reflux, dyspepsia, dysphagia or odynophagia. 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 He did lose 4 lb since September. Patient reports that he eats 2-3 meals a day. Patient sometimes skips a meal if he was sleeping or if he was outside or doing something. Patient denies any nausea or vomiting. Denies melena, hematochezia. ON LICENSE OF [facility] Medical History History of anxiety Difficulty swallowing CHF (congestive heart failure) Mitral valve disease Palpitations Cardiomyopathy Spinal pain H. pylori infection Surgical History History of esophagogastroduodenoscopy (EGD) Social History Alcohol intake: never Patient Tobacco Use Status: Never used Tobacco Current occupational status: disabled Current occupation: right handed Review of Systems Const Denies weight gain and Denies weight loss ENT Reports no additional complaints, Denies dysphagia and Denies odynophagia Card Reports no additional complaints Resp Reports no additional complaints GI Denies abdominal pain, Denies belching, Denies melena, Denies bloating, Denies change in bowel habits, Denies dysphagia, Denies excessive flatus, Denies dyspepsia, Denies heartburn, Denies diarrhea, Denies loose stools, Denies nausea, Denies odynophagia and Denies vomiting Reports no additional complaints Musc Reports no additional complaints Neuro Reports no additional complaints Psych Reports no additional complaints Endo Reports no additional complaints Physical Exam Vital Signs: Last Vital Signs Pulse 88 12/26/24 10:27 BP 102/70 12/26/24 10:27 Pulse Ox 97 12/26/24 10:27 Oxygen Delivery Method Room Air 12/26/24 10:27 BMI result Body Mass Index 14.4 Const General: no acute distress Nutritional Appearance: thin and underweight Orientation/consciousness: patient oriented x3 Resp Effort & Inspection: normal respiratory effort, able to speak in complete sentences, no tracheal deviation and symmetric chest movement Auscultation: clear to auscultation bilaterally Cardio Rate: regular rate GI Inspection: Yes normal to inspection and No distended Palpation (GI): Soft to palpation, not firm, nontender and No hepatosplenomegaly present Auscultation: normal bowel sounds General: Yes no CVA tenderness Back/Spine/Pelvis Back: no CVA tenderness Skin General skin exam: elasticity normal, turgor normal and dry skin Neuro General: patient oriented x3 Psych Appearance: grossly normal Mental Status: mental status grossly normal Assessment & Plan Assessment & Plan (1) SMAS (superior mesenteric artery syndrome): Code(s): K55.1 - Chronic vascular disorders of intestine Category: Medical (2) GERD (gastroesophageal reflux disease): Code(s): K21.9 - Gastro-esophageal reflux disease without esophagitis Qualifiers: Esophagitis presence: esophagitis presence not specified Qualified Code(s): K21.9 - Gastro-esophageal reflux disease without esophagitis Plan Patient was encouraged to eat high calorie diet. Discussed with patient of different choices making different she takes himself. Patient was encouraged not to skip a meal. Patient was encouraged to eat 5 to 6 times a day. Avoid dietary triggers only nonselective his staying upright for minimum 3 hours after meals a with them. Patient will follow-up in 6 months, sooner on as needed basis. Patient is agreeable to this plan and verbalizes understanding of instructions. He was given the opportunity to ask questions and all questions answered. Thank you for allowing me to participate in his care Coding Level of Care Code Est Pt Level 3 (65484) Diagnoses SMAS (superior mesenteric artery syndrome) K55.1 Gastroesophageal reflux disease, unspecified whether esophagitis present K21.9 Esophagitis presence: esophagitis presence not specified Time Spent (min) 30 Comment 20 minutes spent with patient and additional 10 minutes spent reviewing his records
[2024-12-26 10:27] VITALS: BP 102/70; PULSE 88; O2SAT 97; BMI 14.4
--- OUTSIDE RECORDS SUMMARY | 2024-12-26 12:13 | XMS_ITS | Encounter Summary ---
Demographics Address [address] [place] [address] Work Phone Home Phone Mobile Phone Email Address Preferred Language en Marital Status Single Mosque Affiliation Unknown Race Other Race Ethnic Group Unknown Author Organization [employer] Address [address] [place] [address] Care Team Providers Care Black Ash Worker Name Role Phone Iain Bellamy MD Primary Care Provide r Reason for Visit * Reason Comments Med Refill Encounter Details Date Type Department Care Team ([facility] st Contact Info) Description 12/24/2022 Refill [facility] [address] [place] [address] Iain Bellamy MD [address] [place] [address] COVID-19 Social History Tobacco Use Types Packs/Day [...] as of this encounter Plan of Treatment Not on file documented as of this encounter Visit Diagnoses Diagnosis COVID-19 documented in this encounter Additional Health Concerns Assessment Noted Time PHQ-9 Depression Total Score: 1 04/21/19 23 10:56 AM EST documented as of this encounter Care Teams Black Ash Worker Relationship Specialty Start Date End Date Iain Bellamy MD [address] [place] [phone] PCP - General Internal Medicine 08/24/17 documented as of this encounter
--- OUTSIDE RECORDS SUMMARY | 2024-12-26 12:13 | XMS_ITS | Encounter Summary ---
Author Organization [employer] Address [address] [place] [address] Care Team Providers Care Datapower Consultant Name Role Phone Iain Bellamy MD Primary Care Provide r Reason for Visit * Reason Comments Med Refill Encounter Details Date Type Department Care Team ([facility] st Contact Info) Description 02/02/2024 Refill [facility] [address] [place] [address] Iain Bellamy MD [address] [place] [address] COVID-19 Social History Tobacco Use Types Packs/Day [...] housing situation today? I have nahedjennifer tan 06/07/[address] [...] documented as of this encounter Care Teams Datapower Consultant Relationship Specialty Start Date End Date Iain Bellamy MD [address] [place] [id number] PCP - General Internal Medicine 08/24/17 documented as of this encounter
--- OUTSIDE RECORDS SUMMARY | 2024-12-26 12:13 | XMS_ITS | Clinical Summary ---
Author Organization [employer] Address [address] [facility] [address] [place] [address] Care Team Providers Care Assisted Living Executive Director Name Role Phone Iain Bellamy MD Primary Care Provide r Allergies No known active allergies Medications sacubitril-vals guevara (Entresto) 24-26 MG tablet Take 1 tablet by mouth every 12 (twelve) hours. Active pantoprazole (ProtoNix) 40 MG EC tablet TAKE 1 TABLET BY MOUTH ONCE DAILY 30 MINUTES BEFORE BREAKFAST 3 Active sucralfate (Carafate) 1 g tablet Take 1 g by mouth 2 times daily. 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 42 g 4 Active pseudoephedrine (Sudafed) 30 MG tablet Take 1 tablet (30 mg) by mouth every 4 (four) hours if needed for congestion for up to 10 days. 30 tablet 4 Active ibuprofen 400 MG tabletIndicatio ns:Influenza A Take 1 tablet (400 mg) by mouth every 6 (six) hours if needed for moderate pain. 30 tablet 5 Active benzoyl peroxide (PanOxyl Foaming Wash) 10 % external washIndications :Folliculitis Apply topically at bedtime. 227 g 5 04/14/19 26 Active clotrimazole (Lotrimin) 1 % creamIndication s:Tinea versicolor Apply topically 2 times daily. 30 g 5 Active fluticasone (Flonase) 50 MCG/ACT nasal sprayIndication s:Influenza A INSTILL 1-2 SPRAYS IN EACH NOSTRIL ONCE DAILY 48 g 5 Active Active Problems Problem Noted Date Diagnosed Date Alopecia 08/22/2024 Fingernail abnormalities 08/22/2024 Assessment & Plan (08/22/2024 1:59 PM EDT): Patient interested in a second opinion by dermatology, complaining of inability to cut his fingernails due to an overgrowth of tissue under the nail which makes it painful to cut the nails Plan: dermatology referral to Dr Isaacs Nephrolithiasis 02/17/2024 Assessment & Plan (08/22/2024 1:44 PM EDT): Here for a follow up CT abdomen pelvis 12/11/2023 showed: Mild left-sided hydronephrosis and hydroureter suspected to be related to a 5 mm distal left ureteral calculus. Under the care of Urology Dr. Pratt, last seen 03/09/2024 recommended a 6 month follow up with repeat US Assessment & Plan (02/17/2024 11:20 AM EST): [...] terbinafine cream BID, Selenium shampoo Derm referral Routine physical examination 08/19/2023 Assessment & Plan (08/22/2024 2:00 PM EDT): Exam is within normal limits Assessment & Plan (08/19/2023 3:38 PM EDT): [...] surgeon consult Cardiomyopathy 03/19/2022 Assessment & Plan (08/22/2024 1:47 PM EDT): Under the care of Dr Keen, last seen 01/13/2024 Previously a CBC and TSH were normal Pt denies any alcohol or drug use Pt evaluated by [employer]. initial ECHO showed an EF 20% with moderate MR and a most recent ECHO 12/2023 showed an EF 35-40% Previous stress ECHO was normal. [employer] increased his carvedilol to 2 tabs of 12.5 mg po BID and discontinued Lasix Pt had a cardiac MRI to r/o infiltrative CMP that showed dilated LV with mild global hypokinesis LVEF 51%, no abnormal enhancement to suggest infiltrative cardiomyopathy, a loop monitor to assess PVC burden and arrythmia showed predominant sinus rhythm, average rate 60 bpm max 131. he was referred by public health training assistant to [facility] for evaluation of a genetic syndrome he was not thought to have Marfan's. He is on low dose Lisinopril. Will continue to follow with Cardiology who recommended a 6 month follow up. Last ECHO 06/20/2024 showed mild global hypokinesis, EF 40-45% Assessment & Plan (02/17/2024 11:19 AM EST): Under the care of Dr Keen, last seen 01/13/2024 Previously a CBC and TSH were normal Pt denies any alcohol or drug use Pt evaluated by [employer]. initial ECHO showed an EF 20% with moderate MR and a most recent ECHO 12/2023 showed an EF 35-40% Previous stress ECHO was normal. [employer] increased his carvedilol to 2 tabs of 12.5 mg po BID and discontinued Lasix Pt had a cardiac MRI to r/o infiltrative CMP that showed dilated LV with mild global hypokinesis LVEF 51%, no abnormal enhancement to suggest infiltrative cardiomyopathy, a loop monitor to assess PVC burden and arrythmia showed predominant sinus rhythm, average rate 60 bpm max 131. he was referred by public health training assistant to [place] for evaluation of a genetic syndrome he [...] alcohol or drug use Pt evaluated by [employer]. initial ECHO showed an EF 20% with moderate MR and a most recent ECHO 08/2018 showed an EF 40-45% Previous stress ECHO was normal. [employer] increased his carvedilol to 2 tabs of 12.5 mg po BID and discontinued Lasix Pt had a cardiac MRI to r/o infiltrative CMP that showed dilated LV with mild global hypokinesis LVEF 51%, no abnormal enhancement to suggest infiltrative cardiomyopathy, a loop monitor to assess PVC burden and arrythmia showed predominant sinus rhythm, average rate 60 bpm max 131. he was referred by public health training assistant to [place] for evaluation of a genetic syndrome he [...] alcohol or drug use Pt evaluated by [employer]. initial ECHO showed an EF 20% with moderate MR and a most recent ECHO 08/2018 showed an EF 40-45% Previous stress ECHO was normal. [employer] increased his carvedilol to 2 tabs of 12.5 mg po BID and discontinued Lasix Pt had a cardiac MRI to r/o infiltrative CMP that showed dilated LV with mild global hypokinesis LVEF 51%, no abnormal enhancement to suggest infiltrative cardiomyopathy, a loop monitor to assess PVC burden and arrythmia showed predominant sinus rhythm, average rate 60 bpm max 131. he was referred by public health training assistant to [place] for evaluation of a genetic syndrome he [...] neuroforaminal encroachment. Pt julio c went to [facility] and saw the Physiotherapist Underweight 09/18/2020 Assessment & Plan (08/22/2024 1:56 PM EDT): Images from the original note were not included. Pt referred to [employer] Operator, seen endocrine as well, las 03/23/2024 Weight is improving Assessment & Plan (02/17/2024 11:22 AM EST): Pt referred to [employer] Operator, seen endocrine as well, las 12/28/2023 Assessment & Plan (04/21/2022 8:39 AM EST): Pt referred to [employer] Operator Acne 01/31/2014 Resolved Problems Problem Noted Date Diagnosed Date Resolved Date Decreased visual acuity 08/19/2023 08/2 11/2024 Assessment & Plan (08/19/2023 3:38 PM EDT): Pt unable to see his cheese packer at [facility] due to transportation issues Will refer to [facility] Encounters Date Type Department Care Team Description 11/03/2024 1:45 PM EDT Office Visit [facility] [address] [place] [id number] Demi Leonard, OD Myopia, bilateral (Primary Dx); Chronic allergic conjunctivitis 11/03/2024 Travel from Last 3 Months Immunizations Immunization Administration Dates Next Due DTaP 01/13/1999, 7,1995,09/09,1995 [...] free, adsorbed 04/21/2022 Tdap 03/17/2007 Varicella 07/13/2013,01/26/2011 Family History Medical History Relation Name Comments Glaucoma Mother Relation Name Status Comments Mother Social History Tobacco Use Types Packs/Day Years [...] housing situation today? I have nahed tan 08/15/[address] you [...] Mass Index 14.93 08/22/2024 1:37 PM EDT Plan of Treatment Health Maintenance Due Date Last Done Comments HIV Screening 1995 Family Planning (PISQ) 2010 Hepatitis C Screening 2013 COVID-19 Vaccine ( season) 2024 Influenza Vaccine (#1) 2024 , 03/29/2018, 01/31/2014, Additional history exists Alcohol/Substance Use Screening 02/16/2025 02/17/2024 SDOH Screening 08/15/2025 08/15/2024 Depression Screening 08/22/2025 08/22/2024, 08/23/19 Disability Screening 08/22/2025 08/22/2024 Tobacco Screening 11/03/2025 11/03/2024 DTaP/Tdap/Td Vaccines (8 - Td or Tdap) [...] Hepatitis A Vaccines Completed 09/29/2012, 01/27/20 11 Meningococcal B Vaccine Aged Out No l onger eligible based on patient's age to complete this topic Pneumococcal Vaccine: Pediatrics (0 to 5 Years) and At-Risk Patients (6 to 49) Years Aged Out No longer eligible based on patient's age to complete this topic RSV under 20 months Aged Out No longe r eligible based on patient's age to complete this topic Rotavirus Vaccines Aged Out No longer eligible based on patient's age to complete this topic Insurance [facility] Care Teams Assisted Living Executive Director Relationship Specialty Start Date End Date Iain Bellamy MD [address] [place] [address] PCP - General Internal Medicine 08/24/17
--- OUTSIDE RECORDS SUMMARY | 2024-12-26 12:13 | XMS_ITS | Encounter Summary ---
Author Organization [employer] Address [address] [facility] [address] [place] [address] Care Team Providers Care Bobbin Marker Name Role Phone Iain Bellamy MD Primary Care Provide r Reason for Visit * Reason Comments Med Refill Encounter Details Date Type Department Care Team ([facility] st Contact Info) Description 07/02/2022 Refill [facility] [address] [place] [phone] Iain Bellamy MD [address] [place] [address] COVID-19 Social History Tobacco Use Types Packs/Day [...] documented as of this encounter Care Teams Bobbin Marker Relationship Specialty Start Date End Date Iain Bellamy MD [address] [place] [address] PCP - General Internal Medicine 08/24/17 documented as of this encounter
== END 2024-12-26 10:52 | disposition home or self-care (01) ==
PROVIDERS: PCP Internal Medicine; Visit Provider Nurse Practitioner Family
DX: K55.1 Chronic vascular disorders of intestine (principal); K21.9 Gastro-esophageal reflux disease without esophagitis
CPT/HCPCS: 99213

== ENCOUNTER → 2024-12-26 10:18 | Outpatient (BNVA) | payer MEDICAID, SELFPAY | PROVIDERS: PCP Internal Medicine; Visit Provider Nurse Practitioner Family | DX: K55.1 Chronic vascular disorders of intestine (principal); K21.9 Gastro-esophageal reflux disease without esophagitis | CPT/HCPCS: 99212 ==